=== PATIENT | male | born 1945 | race Caucasian/White ===

== ENCOUNTER 2016-04-09 10:02 | Observation (INO) | payer OTHER, MEDICARE ==
--- NOTE | 2016-04-09 10:27 | ED ---
Chest Pain HPI - General Chief Complaint: Syncope Stated Complaint: Chest pain Time Seen by Provider: 04/09/16 10:14 Source: patient, RN notes reviewed Mode of arrival: ambulatory Limitations: no limitations - History of Present Illness Initial Comments: This is a 70-year-old male with a history of COPD who states he had an episode this morning about 8:30 AM of some lightheadedness nausea vomiting he passed out. He also had chest tightness it was 6/10 in severity. Tightness lasted about one half hour. Currently he feels fine. EMS was summoned to his house but they decided to come in by private vehicle. Is unclear whether the nausea vomiting came before after the chest tightness and wearing a process the syncopal episode occurred. He does state that he has carotid artery disease he has passed out previously. No recent trauma fevers chills sweats MD Complaint: chest pain, other - Related Data Home Medications Medication Instructions Recorded Confirmed Albuterol Nebulized [Ventolin 2.5 mg INHALATION RT-BID PRN 04/09/16 04/09/16 Nebulized] Albuterol Sulfate [Proventil Hfa] 2 puff INHALATION RT-QID PRN 04/09/16 04/09/16 Aspirin 325 mg PO DAILY 04/09/16 04/09/16 Budesonide/Formoterol Fumarate 2 puff INHALATION RT-BID 04/09/16 04/09/16 [Symbicort 80-4.5 Mcg Inhaler] Nitroglycerin Sl Tabs [Nitrostat] 0.4 mg SUBLINGUAL Q5M PRN 04/09/16 04/09/16 Omeprazole [PriLOSEC] 20 mg PO AC-BID 04/09/16 04/09/16 diphenhydrAMINE HCL [Benadryl] 25 mg PO DAILY PRN 04/09/16 04/09/16 Allergies Allergy/AdvReac Type Severity Reaction Status Date / Time No Known Allergies Allergy Verified 04/09/16 11:08 Review of Systems ROS Statement: Those systems with pertinent positive or pertinent negative responses have been documented in the HPI. ROS Other: All systems not noted in ROS Statement are negative. EKG Findings - EKG Results: EKG: interpreted by MARINO, sinus rhythm (Sinus rhythm with a rate 81 a WI interval 150 QRS duration 88 daily since QTC of 388/[address]-T wave configuration.) Past Medical History Past Medical History: COPD, GERD/Reflux Additional Past Medical History / Comment(s): vocal cord History of Any Multi-Drug Resistant Organisms: None Reported Past Surgical History: Ablation, Cholecystectomy, Orthopedic Surgery Additional Past Surgical History / Comment(s): vasectomy Past Psychological History: No Psychological Hx Reported Smoking Status: Former smoker Past Alcohol Use History: None Reported Past Drug Use History: None Reported General Exam - General Exam Comments Initial Comments: This is a well-developed well-nourished awake alert oriented 3 male Limitations: no limitations General appearance: alert, in no apparent distress Head exam: Present: atraumatic, normocephalic, normal inspection Eye exam: Present: normal appearance, PERRL, EOMI. Absent: scleral icterus, conjunctival injection, periorbital swelling ENT exam: Present: normal exam, mucous membranes moist Neck exam: Present: normal inspection. Absent: tenderness, meningismus, lymphadenopathy Respiratory exam: Present: normal lung sounds bilaterally. Absent: respiratory distress, wheezes, rales, rhonchi, stridor Cardiovascular Exam: Present: regular rate, normal rhythm, normal heart sounds. Absent: systolic murmur, diastolic murmur, rubs, gallop, clicks GI/Abdominal exam: Present: soft, normal bowel sounds. Absent: distended, tenderness, guarding, rebound, rigid Extremities exam: Present: normal inspection, full ROM, normal capillary refill. Absent: tenderness, pedal edema, joint swelling, calf tenderness Back exam: Present: normal inspection Neurological exam: Present: alert, oriented X3, CN II-XII intact Psychiatric exam: Present: normal affect, normal mood Skin exam: Present: warm, dry, intact, normal color. Absent: rash Course Vital Signs 04/09/16 04/09/16 04/09/16 10:05 11:13 12:02 Temperature 97.1 F L Pulse Rate 90 87 84 Respiratory 20 18 18 Rate Blood Pressure 119/83 159/74 157/65 O2 Sat by Pulse 97 97 97 Oximetry 04/09/16 04/09/16 12:07 13:19 Temperature 99.3 F 99.0 F Pulse Rate 85 84 Respiratory 16 18 Rate Blood Pressure 140/73 137/63 O2 Sat by Pulse 98 98 Oximetry - Reevaluation(s) Reevaluation #1: 04/09/16 13:48 I did reevaluate patient several occasions he had no further episodes. Chest Pain MDM - MDM Review the imaging showed no definite acute findings including the CAT scan. I did discuss the case with the patient family and with the admitting physicians patient be admitted with cardiology consultation for chest pain and syncope Critical Care Time Critical Care Time: Yes Critical Care Time: 31 minutes which included the initial presentation with history physical lab and x-rays reevaluation the patient on several occasions. Discussion with the patient and his family. Discussed with the admitting physician order writing and documentation of the above. Disposition Clinical Impression: Syncope and collapse, Chest pain Disposition: ADMITTED IP TO THIS [facility] Condition: Stable
[2016-04-09 10:53] LABS: Basophils % (A) 1 %; CH 30.4; CHCM 34.4; Eosinophils # (A) 0.6 k/uL (0-0.7); Eosinophils % (A) 8 %; HCT 42.3 % (39.0-53.0); HDW 3.11; HGB 14.3 gm/dL (13.0-17.5); Luc # (Auto) 0.31; Luc % (Auto) 4; Lymphocytes # (A) 0.8 k/uL (1.0-4.8); Lymphocytes % (A) 10 %; MCH 30.1 pg (25.0-35.0); MCHC 33.9 g/dL (31.0-37.0); MCV 88.9 fL (80.0-100.0); Mean Platelet Volume 7.3; Monocytes # (A) 0.6 k/uL (0-1.0); Monocytes % (A) 9 %; Neutrophils % (A) 69 %; RBC 4.75 m/uL (4.30-5.90); WBC 7.2 k/uL (3.8-10.6); WBC (Perox) 7.02
[2016-04-09 11:03] LABS: ALT 37 U/L (21-72); AST 22 U/L (17-59); Alkaline Phosphatase 73 U/L (38-126); Amylase <30 U/L (30-110); Anion Gap 8 mmol/L; Blood Urea Nitrogen 18 mg/dL (9-20); Calcium 8.6 mg/dL (8.4-10.2); Carbon Dioxide 27 mmol/L (22-30); Chloride 102 mmol/L (98-107); Glucose 101 mg/dL (74-99); Magnesium 1.7 mg/dL (1.6-2.3); Non-African American GFR(MDRD) >60 (>60 ml/min/1.73 sqM); Potassium 4.4 mmol/L (3.5-5.1); Sodium 137 mmol/L (137-145); Total Bilirubin 0.6 mg/dL (0.2-1.3); Total Protein 6.4 g/dL (6.3-8.2)
[2016-04-09 11:08] LABS: INR 1.1 (<1.1); Partial Thromboplastin Time 26.2 sec (22.0-30.0); Prothrombin Time 10.7 sec (9.0-12.0)
--- NOTE | 2016-04-09 11:12 | XR ---
EXAMINATION TYPE: XR chest 2V DATE OF EXAM: 04/09/2016 10:43 AM COMPARISON: Prior chest x-ray 22 November 2013 HISTORY: Chest pain and cough TECHNIQUE: Frontal and lateral views of the chest are obtained. FINDINGS: There is no focal air space opacity, pleural effusion, or pneumothorax seen. The cardiac silhouette size is within normal limits. There are overlying cardiac leads. Patient is rotated. Stra nd-like densities within the lungs likely reflect scarring. Prominent lung volumes are suggestive of COPD. The osseous structures are intact. IMPRESSION: No acute cardiopulmonary process.
[2016-04-09 11:26] LABS: Creatine Kinase MB 1.3 ng/mL (0.0-2.4); Troponin I 0.029 ng/mL (0.000-0.034)
[2016-04-09] MEDS ORDERED: RX INFO: IV CONTRAST WAS GIVEN 1 EACH MISC MISCELLANE PRN (12:13)
--- NOTE | 2016-04-09 13:07 | CT ---
EXAMINATION TYPE: CT angio chest DATE OF EXAM: 04/09/2016 12:48 PM COMPARISON: Correlation radiograph same day HISTORY: 70-year-old male with shortness of breath and chest pain TECHNIQUE: Contiguous axial scanning of the chest performed with IV Contrast, patient injected with 1 00 ml mL of Omnipaque 350. Coronal/sagittal MIP reconstructions performed. CT DLP: 517 mGycm Automated exposure control for dose reduction was used. FINDINGS: Heart is normal size with trace anterior pericardial effusion. Extensive coronary vessel calcificatio ns are present and unremarkable for coronary artery disease. The aorta is normal caliber with mild atherosclerotic arch calcifications and conventional arch vesse l branching anatomy. Precarinal lymph node is borderline enlarged at 1 cm as is a subcarinal lymph node measuring 1.3 cm. Additional scattered nonenlarged mediastinal lymph nodes are present. Mild bilateral gynecomastia. Satisfactory opacification of the pulmonary arterial system without evidence for pulmonary embolus. Moderate diffuse bronchial wall thickening and mild centrilobular emphysema. Tiny calcified granuloma left upper lobe axial image 44. Some subtle groundglass nodular densities at the lung bases and line ar bands of scarring or atelectasis in the lower lungs. Some subtle tree-in-bud opacities are also berman ggested, for example, right middle lobe axial image 104. No kira consolidation or significant pleura l effusion. Visualized upper abdomen shows numerous hypodense lesions in the liver measuring up to 3.0 cm suggest ned of cysts. Bones: Mild superior endplate compression deformity of T5 resulting in mild anterior wedging, suspect ed chronic given the lack of any paravertebral soft tissue abnormality. There is also some apparent healed fracture deformity of the upper sternal body. IMPRESSION: 1. NO EVIDENCE FOR PULMONARY EMBOLUS. 2. COPD WITH MILD EMPHYSEMA. THERE IS A PROMINENT COMPONENT OF CHRONIC BRONCHITIS OR SUPERIMPOSED ACU TE BRONCHITIS. 3. CAD. 4. SUBTLE GROUNDGLASS NODULES AND TREE-IN-BUD OPACITIES IN THE LOWER LUNGS COULD REFLECT BRONCHIOLITI S, SEQUELA OF ASPIRATION, OR INFECTION WITH ATYPICAL ORGANISMS. 5. SUSPECT CHRONIC MILD ANTERIOR WEDGING OF T5. THERE IS ALSO A CHRONIC HEALED FRACTURE DEFORMITY OF THE STERNAL BODY.
[2016-04-09] MEDS ORDERED: HEPARIN SODIUM,PORCINE 5,000 UNIT/ML 1 ML VIAL IV ONE (13:49)
[2016-04-09] MEDS ORDERED: ALBUTEROL NEBULIZED 2.5 MG/3 ML INHALATION PRN (13:51)
[2016-04-09] MEDS: HEPARIN SODIUM,PORCINE/D5W PMX 25,000 UNIT in DEXTROSE/WATER 1 500ML.BAG IV SCH (14:11)
[2016-04-09] MEDS: SODIUM CHLORIDE 0.9% 1,000 ML IV SCH (14:11)
[2016-04-09 16:56] LABS: Creatine Kinase MB 1.4 ng/mL (0.0-2.4)
[2016-04-09 17:07] LABS: Troponin I 0.036 ng/mL (0.000-0.034)
[2016-04-09] MEDS ORDERED: IPRATROPIUM-ALBUTEROL 3 ML NEB INHALATION PRN (17:33)
[2016-04-09] MEDS: NITROGLYCERIN OINT 1 INCH/GM PACKET TOPICAL SCH ×2 (19:26→22:55)
[2016-04-09] MEDS: SYMBICORT 80-4.5 MCG INHALER INHALATION SCH (20:42)
[2016-04-09] MEDS: PANTOPRAZOLE 40 MG TABLET PO SCH (21:46)
[2016-04-09] MEDS ORDERED: HEPARIN SODIUM,PORCINE 5,000 UNIT/ML 1 ML VIAL IV PRN (22:50)
[2016-04-09 22:54] LABS: Creatine Kinase MB 1.9 ng/mL (0.0-2.4); Troponin I 0.029 ng/mL (0.000-0.034)
[2016-04-10] MEDS: NITROGLYCERIN OINT 1 INCH/GM PACKET TOPICAL SCH (05:46)
[2016-04-10 06:37] LABS: Cholesterol 157 mg/dL (<200); HDL Cholesterol 38 mg/dL (40-60); Triglycerides 105 mg/dL (<150)
[2016-04-10] MEDS: PANTOPRAZOLE 40 MG TABLET PO SCH ×2 (06:37→18:35)
[2016-04-10] MEDS ORDERED: ACETAMINOPHEN TAB 325 MG TAB PO PRN (07:43)
--- NOTE | 2016-04-10 07:55 | HP ---
DATE OF ADMISSION: Chief complaint is syncope. Mr. Ramos is a 70-year-old male with a known history of COPD, GERD, and history of left carotid endarterectomy with 90% blockage and 50% blockage for right carotid artery. Came to the hospital after He had a single episode at home. Apparently was standing and talking to his , suddenly he felt dizzy and fell on the trashcan. Patient felt nauseated and lightheadedness before the episode. Patient says that he lost consciousness for a few minutes and also felt some chest tightness and he came to the hospital. Chest tightness and tiredness lasted about half an hour. Patient came to the hospital in a private vehicle. Otherwise, patient denied any recent illnesses. No fever. No chills. Patient does have dry cough and no increased sputum production. Patient used to smoke but quit about 12 years ago. Patient says that he had neck surgery and sternal fracture status post fall at work. Otherwise, patient currently denied any chest pain. Patient apparently has not been feeling well recently and patient is scheduled for cardiac catheterization next month. No recent travel. REVIEW OF SYSTEMS: CONSTITUTIONAL: No fever. No chills. No weakness, malaise. RESPIRATORY: No cough or sputum production. CARDIOVASCULAR: No chest pain or short of breath. No leg swelling. ABDOMEN: No nausea or vomiting. No abdominal pain. No diarrhea. No constipation. GENITOURINARY: No dysuria. No ( ). ENDOCRINE: Negative. PSYCHIATRIC: Negative. NEUROLOGIC: No headache or lightheadedness, dizziness now. No numbness or tingling. No weakness. Otherwise, patient denied any orthopnea, PND. No bladder or bowel incontinence and he had a single episode. PAST MEDICAL HISTORY: COPD and GERD, history of fall and sternal fracture as well as neck surgery and vocal cord damage at the time. PAST SURGICAL HISTORY: Ablation, cholecystectomy, orthopedic surgery, vasectomy. SOCIAL HISTORY: Patient is a former smoker. Used to smoke 1 pack per day, quit 12 years ago. Denied any alcohol, drugs or IVDU. FAMILY HISTORY: Denied any history of hypertension or diabetes mellitus in the family. ALLERGIES: No known drug allergies. Home medications include: 1. Ventolin. 2. Albuterol sulfate. 3. Aspirin. 4. Symbicort. 5. Nitroglycerin. 6. Omeprazole. 7. Benadryl. PHYSICAL EXAMINATION: A 70-year-old male lying in bed comfortably, awake, alert, oriented x3, appears to be in no apparent distress. VITALS: Blood pressure 140/69, pulse is 74, respiratory rate 16, temperature afebrile, pulse ox 94% on room air. HEENT: Atraumatic, normocephalic. Neck is supple. No JVD. CVS EXAM: S1, S2 heard. No murmurs, no gallop. LUNGS: Bilateral air entry is present. Expiratory wheezing positive. Nonlabored breathing. ABDOMEN: Soft, nontender. Bowel sounds are present. 3D DESIGNER: Awake, alert, oriented x3. No focal neurologic deficit. EXTREMITIES: No edema. Pulses palpable bilaterally. No clubbing or cyanosis. PSYCHIATRIC: Cooperative. LABORATORY DATA: WBC 7.2, hemoglobin 14.3, platelets 247, INR 1.1. D-dimer is 0.88. Sodium 137, potassium 4.4, chloride 102, bicarb is 27. BUN 18, creatinine 1.01 and troponin 0.029 and 0.036, amylase less than 30, lipase is around 35. Chest x-ray no abnormality and CT of the chest showed no evidence of pulmonary embolism, COPD with mild emphysema. There is a prominent component of chronic bronchitis, probably superimposed acute bronchitis, coronary artery disease, subtle ground glass nodules and tree-in-bud opacities in the lower lungs, could reflect bronchiolitis, sequela of aspiration, or infection with atypical organisms. EKG normal sinus rhythm. IMPRESSION: 1. Syncope and fall, likely ischemic cardiogenic. 2. Elevated troponin, possible non-ST elevated myocardial infarction. 3. Elevated d-dimer, CTA of chest negative for pulmonary embolism. 4. Hx of PVD. s/p left Carotid endarterectomy 4. Chronic obstructive pulmonary disease with mild exacerbation. 5. Ground-glass nodular densities the lower lungs. 6. Gastroesophageal reflux disease. 7. History of ablation. DISCUSSION AND PLAN: Patient will be continued on heparin IV, continue with the breathing treatments and continue with the GI prophylaxis. Continue with the tele monitoring and serial EKGs and patient currently on heparin IV. Cardiology has been consulted for further evaluation. Patient does not have any fever or cough or sputum production and no signs of infection. No need for antibiotics at this time. Consulting Pulmonary for ground-glass densities in the lower lungs. Will continue to follow closely. Further recommendations based on the clinical course. MTDD
[2016-04-10] MEDS ORDERED: ATORVASTATIN 80 MG TAB PO STA (08:27)
[2016-04-10] MEDS ORDERED: ALPRAZolam 0.25 MG TAB PO PRN (08:27)
[2016-04-10] MEDS ORDERED: ALPRAZolam 0.5 MG TAB PO PRN (08:27)
[2016-04-10] MEDS ORDERED: SODIUM CHLORIDE 0.9% 1,000 ML in EMPTY BAG 1 BAG IV ONE (08:27)
[2016-04-10] MEDS ORDERED: NITROGLYCERIN SL TABS 0.4 MG TAB SUBLINGUAL PRN (08:27)
[2016-04-10] MEDS ORDERED: ASPIRIN 325 MG TAB PO STA (08:27)
[2016-04-10] MEDS: METOPROLOL TARTRATE 25 MG TAB PO SCH ×2 (09:01→20:38)
[2016-04-10] MEDS: ASPIRIN 325 MG TAB PO SCH (09:02)
[2016-04-10] MEDS: ATORVASTATIN 80 MG TAB PO SCH (09:02)
[2016-04-10] MEDS: SYMBICORT 80-4.5 MCG INHALER INHALATION SCH ×2 (09:18→21:25)
[2016-04-10] MEDS ORDERED: diphenhydrAMINE 50 MG/ML 1 ML VIAL ONE (09:19)
[2016-04-10] MEDS ORDERED: fentaNYL (PF) 50 MCG/ML 2 ML AMP ONE (09:19)
[2016-04-10] MEDS ORDERED: LIDOCAINE 2% INJ 20 MG/ML (20 ML MDV) ONE (09:19)
[2016-04-10] MEDS ORDERED: VERAPAMIL 2.5 MG/ML 2 ML AMP ONE (09:20)
[2016-04-10] MEDS ORDERED: SODIUM CHLORIDE 0.9% (PF) 10 ML VIAL ONE (09:20)
[2016-04-10] MEDS ORDERED: fentaNYL (PF) 50 MCG/ML 2 ML AMP IV ONE (09:56)
--- NOTE | 2016-04-10 09:56 | CONS ---
DATE OF CONSULTATION: Mr. Ramos is a 70-year-old male who is followed at the [facility] in [place], who presented with symptoms of syncope. According to him, he was standing when he had a syncopal episode, short lasting, subsequently had nausea and vomiting. He denies any symptoms of chest pain prior to that. He denies any palpitation. He has chronic dyspnea on exertion. He is limited in his physical activity and he has dyspnea on exertion, but has an intermittent claudication, but no chest discomfort. He has no history of PND, orthopnea, or peripheral edema. No prior history of myocardial infarction, congestive heart failure. He apparently had a stress test done at the [facility] that was abnormal and he was scheduled to undergo cardiac catheterization soon. He has a known history of peripheral vascular disease, status post lower extremities percutaneous revascularization as well as left carotid endarterectomy. His coronary risk factors are positive for prior history of smoking. He is nondiabetic. His lipid profile is not available to me. He has no history of hypertension. His medications include Prilosec, Symbicort, aspirin, Proventil and Ventolin. REVIEW OF SYSTEMS: RESPIRATORY SYSTEM: He has dyspnea on exertion. He has cough, history of obstructive lung disease. GI SYSTEM: No recent GI bleeding. No peptic ulcer disease. SYSTEM: No dysuria or hematuria. NERVOUS SYSTEM: No history of stroke or seizure. PHYSICAL EXAMINATION: A 70-year-old male, alert, oriented, in no apparent distress. Blood pressure 135/60 with a heart in the 90s. HEAD: Normocephalic. EYES: Sclerae nonicteric. NECK: No jugular venous distention. LUNGS: No wheezes. HEART: Regular rate and rhythm. S1, S2, no S3, with systolic murmur. No diastolic murmur. No rub. ABDOMEN: Soft, nontender, positive bowel sounds. No organomegaly. EXTREMITIES: Decreased distal pulses. No edema. Lab data revealed troponin at 0.029, 0.036, and 0.029, cholesterol 157, LDL of 98, BUN and creatinine of 18 and 1.01. D-dimer of 0.88. Hemoglobin of 14.3. CT angiogram of the chest revealed no evidence of pulmonary embolism with evidence of COPD and calcifications of the coronary arteries. EKG revealed a sinus mechanism, normal axis and intervals with nonspecific ST-T wave changes. Chest x-ray revealed no acute infiltrate. IMPRESSION: 1. Syncopal episode with minimal elevation of troponin in a patient with abnormal myocardial perfusion imaging, cannot exclude an ischemic event. 2. History of peripheral vascular disease. 3. History of chronic obstructive pulmonary disease. RECOMMENDATION: I will add to his regimen beta mariusz and a statin. I will obtain echocardiogram with Doppler. I recommend proceeding with coronary angiography to assess his status and guide his treatment. The rationale behind the procedure as well as risks and complications were discussed with the patient who is in full understanding and agreement. Depending on his progress, further recommendation will be made. Thank you for this consult. Will follow with you.
[2016-04-10] MEDS ORDERED: diphenhydrAMINE 50 MG/ML 1 ML VIAL IVP ONE (09:57)
[2016-04-10] MEDS ORDERED: IV FLUID CONTINUATION 350 ML IV ONE (09:57)
[2016-04-10] MEDS ORDERED: LIDOCAINE 2% INJ 20 MG/ML SQ ONE (09:59)
[2016-04-10] MEDS ORDERED: HEPARIN SODIUM 1,000 UNIT/ML VIAL ONE (09:59)
[2016-04-10] MEDS ORDERED: VERAPAMIL SYRINGE (5 MG/10 ML) INTRAARTER ONE (10:01)
[2016-04-10] MEDS ORDERED: HEPARIN SODIUM 1,000 UNIT/ML VIAL IV ONE (10:11)
[2016-04-10] MEDS ORDERED: IOHEXOL 350 MG/ML 100 ML BOTTLE INJ ONE (10:15)
[2016-04-10] MEDS ORDERED: RX INFO: IV CONTRAST WAS GIVEN 1 EACH MISC MISCELLANE PRN (10:27)
[2016-04-10] MEDS ORDERED: SODIUM CHLORIDE 0.9% 1,000 ML IV SCH (10:30)
[2016-04-10] MEDS: SODIUM CHLORIDE 0.9% 1,000 ML IV SCH (11:58)
--- NOTE | 2016-04-10 12:05 | US ---
EXAMINATION TYPE: US carotid duplex BILAT DATE OF EXAM: 04/10/2016 11:37 AM COMPARISON: Previous carotid Doppler dated September 2013 CLINICAL HISTORY: post cea. history of left endarterectomy last year EXAM MEASUREMENTS: RIGHT: Peak Systolic Velocity (PSV) cm/sec ----- Right CCA: 87.3 ----- Right ICA: 318.1 ----- Right ECA: 222.7 ICA/CCA ratio: 3.6 RIGHT: End Diastole cm/sec ----- Right CCA: 18.1 ----- Right ICA: 30.7 ----- Right ECA: 15.8 LEFT: Peak Systolic Velocity (PSV) cm/sec ----- Left CCA: 137.7 ----- Left ICA: 122.6 ----- Left ECA: 201.9 ICA/CCA ratio: 0.9 LEFT: End Diastole cm/sec ----- Left CCA: 19.5 ----- Left ICA: 33.8 ----- Left ECA: 0.0 VERTEBRALS (direction of flow): Right Vertebral: Antegrade Left Vertebral: Antegrade there is an elevated velocity noted in the left vertebral artery. TECHNOLOGIST IMPRESSION: Elevated velocities right ICA and ECA indicating stenosis. Grayscale, color Doppler, spectral Doppler imaging performed at the carotid arteries. Extensive ather omatous changes are present within the common carotid, proximal internal carotid artery on the right. Waveform analysis is compatible with significant stenosis of the proximal internal carotid on the [facility] by Doppler criteria, and indirect measurement of carotid stenosis. Post endarterectomy changes ar e present on the left. IMPRESSION: Hemodynamic significant stenosis of the proximal internal carotid artery and right corre sponding to what may be 70% or greater diameter reduction by Doppler criteria. Consider carotid CTA for better evaluation. Elevated left vertebral artery velocity. Criteria for Assigning % of Stenosis / Diameter reduction (Estimation based on the indirect measurements of the internal carotid artery velocities (ICA PSV). 1. Normal (no stenosis)=ICA PSV < 125 cm/s: ratio < 2.0: ICA EDV<40 cm/s. 2. Less than 50% stenosis=ICA PSV < 125 cm/s: ratio < 2.0: ICA EDV<40 cm/s. 3. 50 to 69% stenosis=ICA PSV of 125 to 230 cm/s: ration 2.0 ? 4.0: ICA EDV 40-100 cm/s. 4. Greater than 70% stenosis to near occlusion= ICA PSV > 230 cm/s: ratio > 4.0: ICA EDV > 100 cm/s. 5. Near occlusion= ICA PSV velocities may be low or undetectable: variable ratio and ICA EDV. 6. Total occlusion=unable to detect flow.
[2016-04-10 12:12] LABS: Hemoglobin A1C 5.9 % (4.2-6.1)
[2016-04-10 12:47] LABS: Hepatitis B Surface Ag Index 0.08
[2016-04-10 12:53] LABS: Hepatitis B Core IgM Index 0.04
[2016-04-10 13:04] LABS: Hepatitis C Virus IgG Index 0.04
--- NOTE | 2016-04-10 13:09 | ECHOF ---
Referral Reason:cad MEASUREMENTS -------- HEIGHT: 170.2 cm WEIGHT: 78.5 kg BP: 135/67 IVSd: 1.1 cm (0.6 - 1.1) LVIDd: 5.0 cm (3.9 - 5.3) LVPWd: 1.2 cm (0.6 - 1.1) IVSs: 1.4 cm LVIDs: 4.9 cm LVPWs: 1.2 cm LAESV Index (A-L): 22.76 ml/m Ao Diam: 3.3 cm (2.0 - 3.7) AV Cusp: 1.8 cm (1.5 - 2.6) LA Diam: 3.9 cm (2.7 - 3.8) MV EXCURSION: 17.354 mm (> 18.000) MV EF SLOPE: 81 mm/s (70 - 150) EPSS: 1.4 cm MV E Tate: 0.51 m/s MV DecT: 263 ms MV A Tate: 0.89 m/s MV E/A Ratio: 0.57 RAP: 5.00 mmHg RVSP: 20.08 mmHg FINDINGS -------- Undetermined rhythm. This was a techncally difficult study with suboptimal views, , Definity utilized for enhancement of images. Left ventricular wall thickness is normal. There is severe global hypokinesis of LV . Overall left ventricular systolic function is severely impaired with, an EF between 20 - 25 %. The diastolic filling pattern is normal for the age of the patient 11.00. Inferiorlateral Hypokinesis Posterior Hypokinesis. The right ventricle is normal in size. The right atrial size is normal. 1.5MG OF DEFINITY UTLIZED: 2 OR MORE WALL SEGMENTS NOT VISUALIZED. There is mild aortic valve sclerosis. There is no evidence of aortic regurgitation. Mild mitral annular calcification present. Mild mitral regurgitation is present. Mild tricuspid regurgitation present. There is no evidence of pulmonary hypertension. The right ventricular systolic pressure, as measured by Doppler, is 20.08mmHg. Trace/mild (physiologic) pulmonic regurgitation. There is no pericardial effusion. CONCLUSIONS -------- 1. This was a techncally difficult study with suboptimal views, , Definity utilized for enhancement of images. 2. Mild mitral annular calcification present. 3. Mild mitral regurgitation is present. 4. Mild tricuspid regurgitation present. 5. There is no evidence of pulmonary hypertension. 6. The right ventricular systolic pressure, as measured by Doppler, is 20.08mmHg. 7. Trace/mild (physiologic) pulmonic regurgitation. 8. There is no pericardial effusion. 9. Left ventricular wall thickness is normal. 10. There is severe global hypokinesis of LV . 11. Overall left ventricular systolic function is severely impaired with, an EF between 20 - 25 %. 12. The diastolic filling pattern is normal for the age of the patient 11.00 13. Inferiorlateral Hypokinesis 14. Posterior Hypokinesis. 15. 1.5MG OF DEFINITY UTLIZED: 2 OR MORE WALL SEGMENTS NOT VISUALIZED. 16. There is mild aortic valve sclerosis. PRICK STITCHER: Josselin Godfrey RDCS
[2016-04-10 13:20] LABS: Hepatitis C Virus IgG Ab Negative (Negative)
[2016-04-10 14:35] LABS: Appearance,Urine Clear (Clear); Bilirubin,Urine Negative (Negative); Glucose,Urine (UA) Negative (Negative); Ketones,Urine Negative (Negative); Leukocyte Esterase,Urine Negative (Negative); Nitrite,Urine Negative (Negative); Protein,Urine Trace (Negative); UA Billing (MACRO vs. MICRO) CHEM; Urobilinogen,Urine <2.0 mg/dL (<2.0)
--- NOTE | 2016-04-10 15:02 | P.GSCN ---
History of Present Illness Consult date: 04/10/16 Reason for Consult: CAD, possible coronary artery bypass grafting. Requesting physician: Best Martinez History of present illness: This 70 year old male was being followed at the [place]. Apparently, he recently had an abnormal stress test and was supposed to have a heart catheterization soon. Yesterday morning, he felt nauseous, and lightheaded with chest tightness rated at 6/10. He sat down and the next thing he remembered was waking up on the floor. He continued to have nausea. Due to the syncopal episode, nausea, and short-lasting chest tightness, his dialed 911. He does admit to dyspnea with exertion and intermittent claudication but states that these symptoms are chronic. Review of Systems 14 point review of systems done, negative except as noted. - Cardiovascular Reports as per HPI, Reports claudication, Reports dyspnea on exertion, Reports lightheadedness, Reports syncope - Respiratory Reports cough - Gastrointestinal Reports heartburn - Musculoskeletal left: foot pain Past Medical History Past Medical History: COPD, GERD/Reflux, Osteoarthritis (OA) Additional Past Medical History / Comment(s): "vocal cord INFLAMATIO WAS RECENTLY ON ABX", ASBESTOS EXPOSURE WHILD IN THE SERVICE, "HEART SKIPS A BEAT", DRY SKIN BRUISED EASILY History of Any Multi-Drug Resistant Organisms: None Reported Past Surgical History: Orthopedic Surgery, Tonsillectomy Additional Past Surgical History / Comment(s): vasectomy, LT KNEE SX, CHILD HAD SX ON TESTICLE(UNSURE WHAT WAS DONE), BROKE NOSE(SX DONE), FELL 25 FT FROM A TELEPHONE POLE HAD SX ON NECK STATED ", LT CAROTID ENDARTERECTOMY, "STENTS TO BOTH LEGS"HAS A WIRE IN PLACE", RT WRIST BROKEN SX SET, PASSED MEDICAL HX STATED GALLBLADDER AND ABLATION-PT DENIED BOTH. Past Anesthesia/Blood Transfusion Reactions: Previous Problems w/ Anesthesia Additional Past Anesthesia/Blood Transfusion Reaction / Comm: WOKE UP DURING WRIST SX, MILD CLAUSTERPHOBIA Past Psychological History: No Psychological Hx Reported Additional Psychological History / Comment(s): PT LIVES AT HOME WITH HIS AND 1 ADULT SON. 1 INDOOR DOG. PT SERVED IN THE [employer] AND THE [employer]. BEFORE RETIRING PT HAD BEEN WORKING FOR [employer]. PT IS INDEPENDANT.NO OUTSIDE SERVICES. Smoking Status: Former smoker Past Alcohol Use History: None Reported Additional Past Alcohol Use History / Comment(s): STARTED SMOKING WHEN I WAS 8, QUIT 2004, WAS SMOKING 2-3 PPD Past Drug Use History: None Reported - Past Family History Father Family Medical History: Cancer Additional Family Medical History / Comment(s): STOMACH CANCER Mother Additional Family Medical History / Comment(s): POLIO Brother(s) Family Medical History: Myocardial Infarction ([place]) Medications and Allergies Home Medications Medication Instructions Recorded Confirmed Type Albuterol Nebulized [Ventolin 2.5 mg INHALATION RT-BID PRN 04/09/16 04/09/16 History Nebulized] Albuterol Sulfate [Proventil Hfa] 2 puff INHALATION RT-QID PRN 04/09/16 History Aspirin 325 mg PO DAILY 04/09/16 04/09/16 History Budesonide/Formoterol Fumarate 2 puff INHALATION RT-BID 04/09/16 04/09/16 History [Symbicort 80-4.5 Mcg Inhaler] Nitroglycerin Sl Tabs [Nitrostat] 0.4 mg SUBLINGUAL Q5M PRN 04/09/16 04/09/16 History Omeprazole [PriLOSEC] 20 mg PO AC-BID 04/09/16 04/09/16 History diphenhydrAMINE HCL [Benadryl] 25 mg PO DAILY PRN 04/09/16 04/09/16 History Allergies Allergy/AdvReac Type Severity Reaction Status Date / Time No Known Allergies Allergy Verified 04/09/16 11:08 Surgical - Exam Vital Signs Temp Pulse Resp BP Pulse Ox 97.1 F L 90 20 119/83 97 04/09/16 10:05 04/09/16 10:05 04/09/16 10:05 04/09/16 10:05 04/09/16 10:05 - General well developed, well nourished, no distress, no pain - Eyes PERRL, normal ocular movement - Neck No thyromegaly no masses, no bruits, trachea midline, no lymphadectomy - Respiratory Lungs sounds diminished bilaterally. Respirations even, nonlabored. Occasional dry cough. - Cardiovascular S1, S2 present. Regular rate and rhythm, normal sinus rhythm on telemetry. No edema present. - Abdomen Abdomen: soft, non tender, bowel sounds - Genitourinary Deferred - Rectum Deferred - Integumentary Bilateral lower extremities with reddened, jeffery, thick skin. - Neurologic normal coordination, normal sensation - Musculoskeletal normal gait - Psychiatric oriented to time, oriented to person, oriented to place, speech is normal, memory intact Results - Labs 04/09/16 10:36 04/09/16 10:36 Abnormal Lab Results - Last 24 Hours (Table) 04/09/16 04/09/16 04/10/16 Range/Units 16:02 21:51 05:31 APTT 32.5 H (22.0-30.0) sec Troponin I 0.036 H* (0.000-0.034) ng/mL HDL Cholesterol 38 L (40-60) mg/dL 04/10/16 Range/Units 05:32 APTT 63.5 H (22.0-30.0) sec Troponin I (0.000-0.034) ng/mL HDL Cholesterol (40-60) mg/dL Diabetes panel 04/10/16 04/10/16 Range/Units 05:31 05:32 Hemoglobin A1c 5.9 (4.2-6.1) % Triglycerides 105 (<150) mg/dL HDL Cholesterol 38 L (40-60) mg/dL - Imaging Chest x-ray: report reviewed, image reviewed CT scan - chest: report reviewed, image reviewed EKG: image reviewed (carotid dopplers reviewed) Additional studies: vein mapping, ADEOLA, TTE results pending Assessment and Plan (1) Chest pain Status: Acute (2) Syncope and collapse Status: Acute (3) Peripheral artery disease Status: Acute (4) COPD (chronic obstructive pulmonary disease) Status: Acute (5) Coronary artery disease Status: Acute Plan: 1. Cont ASA, BB, ELLEN, Statin 2. Pre-op testing ordered, results pending 3. Pre-op teaching started, cont to reinforce 4. Dr. Lai consulted for pulmonology work-up 5. Plan for possible CABG in the near future dependent on pending tests and patient status 6. Emotional support for patient and family Thank you, Dr. Martinez, for this consult. We look forward to working with you in the care of your patient. Time with Patient: Greater than 30
--- NOTE | 2016-04-10 16:12 | P.CNPUL ---
History of Present Illness Consult date: 04/10/16 Reason for consult: other ( preop pulmonary evaluation) History of present illness: 70-year-old male patient who presented to the hospital because of syncopal episode. The patient had a brief syncope associated with some chest pain/chest discomfort. The patient was suspected to have underlying coronary artery disease based on his risk factors. He was taken to [facility] and he was found to have significant triple-vessel disease. A cardiothoracic consultation was requested to evaluate this patient for cardiac bypass surgery. Mother the patient also has history of carotid artery disease and he has undergone a endarterectomy on the left and he has a 70% stenosis of the intercurrent artery on the right. In terms of his breathing, he is able to walk long distances if he goes slow. He is able to climb a flight of stairs without any major difficulties. He uses Symbicort as maintenance in regards to COPD and Proventil /Ventolin rescue inhaler on a when necessary basis. No recent authorization for COPD exacerbation. No recent pneumonias. The patient relates to a previous injury to his neck area as the patient had fallen off the pole and sustained a injury to his face and chin and ultimately underwent a cervical neck surgery for a fall related injury to the neck/fracture. He was told to have some vocal cord dysfunction probably a unilateral vocal cord paralysis however I'm not certain of this. He is currently free of any chest pain. No 69 DVTs or pulmonary embolism. No alcoholism. A baseline poor function test or an FEV1 has not been measured.. His chest x-ray showed no acute cardio pulmonary abnormalities. The CAT scan of the chest shows evidence of mild COPD with evidence of chronic bronchitis, subtle groundglass nodules in the lower lobes bilaterally and a anterior wedging of the T5 spine and old healed fracture deformity of the sternal body. There was no evidence of any pulmonary embolism. Review of Systems further review of system was done and the positive findings are almost above history of present illness Past Medical History Past Medical History: COPD, GERD/Reflux, Osteoarthritis (OA) Additional Past Medical History / Comment(s): COPD, osteoarthritis, multivessel coronary artery disease as mentioned above, history of sternal fracture secondary to fall, history of neck injury secondary to fall and there is a vague history of a vocal cords injury/paralysis at a time of the fall that occurred approximately 14 years ago. History of Any Multi-Drug Resistant Organisms: None Reported Past Surgical History: Orthopedic Surgery, Tonsillectomy Additional Past Surgical History / Comment(s): Vasectomy, left knee surgery/ arthroscopy, facial surgery for a broken nose, neck surgery following a fall injury from a telephone pole and it's likely the patient had stabilization of his cervical spine, left carotid endarterectomy, peripheral vascular disease with insertion of vascular stents in lower extremities, hands surgery for a broken wrist, cholecystectomy Past Anesthesia/Blood Transfusion Reactions: Previous Problems w/ Anesthesia Additional Past Anesthesia/Blood Transfusion Reaction / Comment(s): WOKE UP DURING WRIST SX, MILD CLAUSTERPHOBIA Past Psychological History: No Psychological Hx Reported Additional Psychological History / Comment(s): PT LIVES AT HOME WITH HIS AND 1 ADULT SON. 1 INDOOR DOG. PT SERVED IN THE [employer] AND [email or web address]. BEFORE RETIRING PT HAD BEEN WORKING FOR [employer]. PT IS INDEPENDANT.NO OUTSIDE SERVICES. Smoking Status: Former smoker Past Alcohol Use History: None Reported Additional Past Alcohol Use History / Comment(s): STARTED SMOKING WHEN I WAS 8, QUIT 2004, WAS SMOKING 2-3 PPD Past Drug Use History: None Reported - Past Family History Father Family Medical History: Cancer Additional Family Medical History / Comment(s): STOMACH CANCER Mother Additional Family Medical History / Comment(s): POLIO Brother(s) Family Medical History: Myocardial Infarction ([place]) Medications and Allergies Home Medications Medication Instructions Recorded Confirmed Type Albuterol Nebulized [Ventolin 2.5 mg INHALATION RT-BID PRN 04/09/16 04/09/16 History Nebulized] Albuterol Sulfate [Proventil Hfa] 2 puff INHALATION RT-QID PRN 04/09/16 History Aspirin 325 mg PO DAILY 04/09/16 04/09/16 History Budesonide/Formoterol Fumarate 2 puff INHALATION RT-BID 04/09/16 04/09/16 History [Symbicort 80-4.5 Mcg Inhaler] Nitroglycerin Sl Tabs [Nitrostat] 0.4 mg SUBLINGUAL Q5M PRN 04/09/16 04/09/16 History Omeprazole [PriLOSEC] 20 mg PO AC-BID 04/09/16 04/09/16 History diphenhydrAMINE HCL [Benadryl] 25 mg PO DAILY PRN 04/09/16 04/09/16 History Allergies Allergy/AdvReac Type Severity Reaction Status Date / Time No Known Allergies Allergy Verified 04/09/16 11:08 Physical Exam Vitals: Vital Signs Temp Pulse Pulse Pulse Resp BP Pulse Ox 04/10/16 14:40 84 18 133/62 96 04/10/16 13:20 66 18 110/80 95 04/10/16 13:19 96 16 04/10/16 13:09 98 04/10/16 12:20 86 16 114/86 95 04/10/16 11:50 68 18 106/75 95 04/10/16 11:20 67 18 111/71 92 L 04/10/16 11:05 65 18 107/70 91 L 04/10/16 10:50 69 18 113/70 93 L 04/10/16 10:35 98.2 F 71 16 133/71 95 04/10/16 08:55 98.2 F 71 16 123/81 93 L 04/10/16 04:00 97.5 F L 99 17 135/67 92 L 04/10/16 00:00 98.0 F 101 H 18 168/79 99 04/09/16 20:00 99.3 F 96 16 125/65 92 L 04/09/16 16:00 97 F L 74 16 140/69 95 Intake and Output 04/10/16 04/10/16 04/10/16 06:59 14:59 22:59 Intake Total 312.239 50 Output Total 400 300 Balance -87.761 -250 Intake: IV 50 Intake, IV Titration 192.239 Amount Heparin Sodium,Porcine/ 192.239 D5w Pmx 25,000 unit In Dextrose/Water 1 500ml. bag @ 12 UNITS/KG/HR 19. 26 mls/hr IV .Q24H [facility] Rx #:[id number] Oral 120 Output: Urine 400 300 Other: Voiding Method Toilet Urinal # Voids 1 Weight 78.8 kg Head exam was generally normal. There was no scleral icterus or corneal arcus. Mucous membranes were moist.Neck was supple and without jugular venous distension, thyromegaly, or carotid bruits. Carotids were easily palpable bilaterally. There was no adenopathy. Scar of the previous surgery over the left anterior neck and posterior neck area. Lung sounds are diminished otherwise they're clear and there is no wheezes or rhonchi early crackles.Cardiac exam revealed the PMI to be normally situated and sized. The rhythm was regular and no extrasystoles were noted during several minutes of auscultation. The first and second heart sounds were normal and physiologic splitting of the second heart sound was noted. There were no murmurs, rubs, clicks, or gallops.. Abdominal exam revealed normal bowel sounds. The abdomen was soft, non-tender, and without masses, organomegaly, or appreciable enlargement of the abdominal aorta.. Examination of Of the extremities revealed easily palpable radial, femoral and pedal pulses. There was no cyanosis , clubbing or edema. Results - Laboratory Findings CBC and BMP: 04/09/16 10:36 04/09/16 10:36 PT/INR, D-dimer PT 10.7 sec (9.0-12.0) 04/09/16 10:36 INR 1.1 (<1.1) 04/09/16 10:36 D-Dimer 0.88 mg/L FEU (<0.60) H 04/09/16 10:36 Abnormal lab findings: Abnormal Labs 04/09/16 04/09/16 04/10/16 16:02 21:51 05:31 APTT 32.5 H Troponin I 0.036 H* HDL Cholesterol 38 L Urine Protein 04/10/16 04/10/16 05:32 14:00 APTT 63.5 H Troponin I HDL Cholesterol Urine Protein Trace H - Diagnostic Findings Chest x-ray: image reviewed CT scan - chest: image reviewed Assessment and Plan Plan: Impression 1 multivessel coronary artery disease, status post acute non-ST segment elevation myocardial infarction, awaiting a cardiothoracic surgery evaluation for possible cardiac coronary bypass surgery. Currently is free of any chest pain and he is hemodynamically stable 2 COPD, severity needs to be quantified by a bedside spirometry. The patient COPD stable and a CAT scan of the chest shows no acute pneumonia or any parenchymal lung changes. 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 he will also need a flow volume loop curves to make sure there is no evidence of any variable upper airway obstruction that could've resulted from his previous traumatic injury to his neck. he has a poor left a ejection fraction of around 20-25%, yet there is no signs of an acute decompensated heart failure at this point. CAT scan findings of the chest were noted and there is no abnormalities other than background COPD. Awaiting a cardiothoracic surgical consultation. provide the patient incentive spirometer. put the patient on DuoNeb treatments around the clock 4 times a day. Encourage ambulation. We'll continue to follow make further recommendations based on his progress.
[2016-04-10 16:14] LABS: Specific Gravity,Urine >1.050 (1.001-1.035)
[2016-04-10] MEDS: HEPARIN SODIUM,PORCINE/D5W PMX 25,000 UNIT in DEXTROSE/WATER 1 500ML.BAG IV SCH (17:46)
[2016-04-10] MEDS: LISINOPRIL 5 MG TAB PO SCH (20:37)
[2016-04-10] MEDS: FLUTICASONE 50MCG/SPRAY NASAL 16GM EA NOSTRIL SCH (20:53)
[2016-04-10] MEDS: IPRATROPIUM-ALBUTEROL 3 ML NEB INHALATION SCH (21:25)
--- NOTE | 2016-04-10 22:06 | CC ---
DATE OF SERVICE: Mr. Ramos is a 70-year-old male with known history of peripheral vascular disease who presented with symptoms of syncope; had minimal elevation of troponin. He has known abnormal myocardial perfusion imaging and was scheduled to undergo cardiac catheterization at the [place]. Because of his symptoms and presentation, recommendation was made regarding cardiac catheterization. The procedure as well as risks and complications were discussed with the patient, who was in full understanding and agreement. PROCEDURE: Patient was brought to the laborer pipeline in a fasting, semi-sedated state after receiving fentanyl and Benadryl. He was draped and prepped in conventional fashion. Using Xylocaine anesthesia and Seldinger technique, a 6 Syrian sheath was introduced in the right radial artery. Selective right and left coronary angiography was performed using 5 Syrian 3-1/2 bend right and left Lele catheters. Multiple views were taken of the arteries, including hemiaxial views. Following that, a 5 Syrian tight pigtail catheter was introduced in the left ventricle and a 30-degree CARTER view of the left ventricle was obtained. Following that, catheter and sheaths were removed. Hemostasis was obtained with deployment of TR band. There were no immediate complication. Patient was returned to his room in stable condition. Of note, the patient received 3500 units of intravenous heparin as well as intra-arterial Verapamil. FINDINGS FLUOROSCOPY: There is severe calcification involving all the coronary tree. LEFT MAIN: This is a large-sized vessel bifurcating into left circumflex, left anterior descending artery. Left main coronary artery has a 20% plaque distally. LEFT ANTERIOR DESCENDING ARTERY: This is a large-sized vessel reaching toward the apex with a wrap around the apex segment giving rise to 3 small diagonal branches, heavily calcified in the mid segment. In the mid segment there is an eccentric lesion of about 80%. The rest of the vessel has no high-grade stenosis. LEFT CIRCUMFLEX: This is a non-dominant vessel giving rise to 3 obtuse marginal branches. After the takeoff of the first obtuse marginal branch, there is a 99% stenosis. Subsequently the second obtuse marginal branch is totally occluded, and there is another lesion prior to the takeoff of the third obtuse marginal branch of about 70%. RIGHT CORONARY ARTERY: This vessel is totally occluded in the mid segment with minimal antegrade flow. COLLATERALS: There is a collateral from the left coronary system toward the right PDA and it appears to be small in caliber. LEFT VENTRICULOGRAM: Left ventriculogram was performed in 30-degree CARTER view and revealed inferior wall severe hypokinesis to akinesis. There was 2 to 3+ mitral regurgitation. Ejection fraction is about 35%. HEMODYNAMICS: There was no gradient across the aortic valve. The left ventricular end-diastolic pressure was 24 to 26 mmHg. CONCLUSION: 1. Severely calcified coronary arteries. 2. Severe triple-vessel coronary artery disease. 3. Severely impaired left ventricular systolic function. RECOMMENDATIONS: In view of findings and anatomy, I have recommended proceeding with evaluation for coronary artery bypass grafting. Those findings and recommendations were discussed with the patient. He is in full understanding and agreement.
[2016-04-11] MEDS: PANTOPRAZOLE 40 MG TABLET PO SCH ×2 (06:28→17:43)
[2016-04-11 06:45] LABS: Basophils % (A) 0 %; CH 29.5; CHCM 33.1; Eosinophils # (A) 0.4 k/uL (0-0.7); Eosinophils % (A) 7 %; HCT 40.4 % (39.0-53.0); HDW 3.19; Luc # (Auto) 0.24; Luc % (Auto) 4; Lymphocytes % (A) 17 %; MCH 28.7 pg (25.0-35.0); MCHC 32.1 g/dL (31.0-37.0); MCV 89.4 fL (80.0-100.0); Mean Platelet Volume 6.5; Monocytes # (A) 0.4 k/uL (0-1.0); Monocytes % (A) 7 %; Neutrophils # (A) 3.8 k/uL (1.3-7.7); Neutrophils % (A) 65 %; RBC 4.52 m/uL (4.30-5.90); RDW 13.8 % (11.5-15.5); WBC 5.9 k/uL (3.8-10.6); WBC (Perox) 6.26
[2016-04-11 06:56] LABS: Anion Gap 10 mmol/L; Calcium 8.3 mg/dL (8.4-10.2); Carbon Dioxide 23 mmol/L (22-30); Chloride 104 mmol/L (98-107); Glucose 102 mg/dL (74-99); Non-African American GFR(MDRD) >60 (>60 ml/min/1.73 sqM); Sodium 137 mmol/L (137-145)
[2016-04-11 07:10] LABS: Blood Urea Nitrogen 16 mg/dL (9-20); Potassium 4.8 mmol/L (3.5-5.1)
--- NOTE | 2016-04-11 07:47 | P.PN ---
Subjective Principal diagnosis: CAD, NSTEMI Awaiting CABG. Patient currently ambulating around the room in no apparent distress. Denies any chest pain last night. Objective - Vital Signs Vital signs: Vital Signs Temp 97.2 F L 04/11/16 03:27 Pulse 88 04/11/16 03:27 Resp 18 04/11/16 03:27 BP 142/77 04/11/16 03:27 Pulse Ox 92 L 04/11/16 03:27 Intake & Output 04/10/16 04/11/16 04/11/16 18:59 06:59 18:59 Intake Total 193.409 950 Output Total 300 2150 Balance -106.591 -1200 Weight 78.7 kg Intake: IV 50 350 Sodium Chloride 0.9% 1, 350 000 ml @ 100 mls/hr IV . Q10H [facility] Rx#:[id number] Intake, IV Titration 143.409 Amount Heparin Sodium,Porcine/ 143.409 D5w Pmx 25,000 unit In Dextrose/Water 1 500ml. bag @ 12 UNITS/KG/HR 19. 26 mls/hr IV .Q24H [facility] Rx #:[id number] Oral 600 Output: Urine 300 2150 Other: Voiding Method Urinal Urinal # Voids 1 - Constitutional General appearance: Present: cooperative, no acute distress - Respiratory Details: Lungs sounds diminished with expiratory wheezes bilaterally. Respirations even and nonlabored. Currently on room air. Able to achieve 1250 mL on his incentive spirometry. - Cardiovascular Details: S1, S2 present. Regular rate and rhythm, normal sinus rhythm on telemetry. Trace bilateral lower extremity edema present. - Gastrointestinal Gastrointestinal Comment(s): Abdomen soft, nontender, nondistended. Active bowel sounds 4 quadrants. Tolerating diet - Genitourinary Genitourinary Comment(s): Voiding clear, yellow urine per urinal. - Musculoskeletal Musculoskeletal: Present: gait normal - Psychiatric Psychiatric: Present: A&O x's 3, appropriate affect, intact judgment & insight - Allied health notes Allied health notes reviewed: nursing - Labs CBC & Chem 7: 04/11/16 06:19 04/11/16 06:19 Labs: Abnormal Lab Results - Last 24 Hours (Table) 04/10/16 04/11/16 04/11/16 Range/Units 14:00 01:07 06:19 APTT 59.1 H 68.4 H (22.0-30.0) sec Glucose (74-99) mg/dL Calcium (8.4-10.2) mg/dL Ur Specific [place] >1.050 H (1.001-1.035) Urine Protein Trace H (Negative) 04/11/16 Range/Units 06:19 APTT (22.0-30.0) sec Glucose 102 H (74-99) mg/dL Calcium 8.3 L (8.4-10.2) mg/dL Ur Specific [place] (1.001-1.035) Urine Protein (Negative) Microbiology - Last 24 Hours (Table) 04/10/16 14:00 Urine Culture - Preliminary Urine,Voided 04/10/16 12:55 Nasal Screen MRSA/MSSA ([facility]) - Preliminary Nasal Swab - Imaging and Cardiology Carotid Dopplers, echocardiogram reviewed. Assessment and Plan (1) Chest pain Status: Acute (2) Syncope and collapse Status: Acute (3) Peripheral artery disease Status: Acute (4) COPD (chronic obstructive pulmonary disease) Status: Acute (5) Coronary artery disease Status: Acute Plan: 1. Cont ASA, BB, ELLEN, Statin 2. Pre-op testing ordered, available results reviewed 3. Pre-op teaching started, cont to reinforce 4. Dr. Lai consulted for pulmonology work-up 5. Will consult ENT to evaluate vocal cords. 6. Will consult vascular surgery to perform right CEA at the same time as his CABG 7. Plan for CABG x 3 in the near future dependent on pending tests and patient status 8. Emotional support for patient and family Time with Patient: Greater than 30
[2016-04-11] MEDS: SYMBICORT 80-4.5 MCG INHALER INHALATION SCH ×2 (08:10→21:34)
[2016-04-11] MEDS: IPRATROPIUM-ALBUTEROL 3 ML NEB INHALATION SCH ×3 (08:32→16:05)
--- NOTE | 2016-04-11 09:03 | PN ---
DATE OF SERVICE: 04/10/2016 INTERVAL HISTORY: Mr. Ramos is a 70-year-old male with known history of chronic obstructive pulmonary disease, gastroesophageal reflux disease, severe coronary artery disease, and peripheral vascular disease with left carotid endarterectomy who was admitted to the hospital with syncopal episode and elevated troponin level. Currently the patient is being evaluated for cardiac bypass graft. 2-D echo showed ejection fraction of 20 to 25%. Otherwise, patient is lying in bed comfortably. No signs of decompensation. No complaint of chest pain or short of breath. No acute overnight issues. REVIEW OF SYSTEMS: No fever. No chills. RESPIRATORY: No cough or sputum production. CARDIOVASCULAR: No chest pain or shortness of breath. ABDOMEN: No nausea, vomiting or abdominal pain. GENITOURINARY: Negative. ENDOCRINE: Negative. PSYCHIATRY: Negative. SKIN: Negative. All other fourteen point review of systems negative except as above. CURRENT MEDICATIONS: Reviewed. PHYSICAL EXAMINATION: A 70-year-old male lying in bed, comfortably, awake, alert, oriented x3, appears to be in no apparent distress. VITALS: Blood pressure is 156/90, pulse is 90, respirations 18, temperature afebrile. Pulse ox 90% on room air. HEENT: Atraumatic, normocephalic. Neck is supple. No JVD. CVS: S1, S2 heard. No murmurs, no gallop, no rub. LUNGS: Bilateral air entry is present. Decreased breath sounds basally. No rhonchi, nonlabored breathing. ABDOMEN: Soft, nontender. Bowel sounds present. [employer] TE[employer]ER: Awake, alert and oriented x3. No focal deficits. EXTREMITIES: No edema. Pulses palpable bilaterally. No clubbing or cyanosis. PSYCHIATRIC: Cooperative. LABORATORY DATA: ( ) 1.1, LDL 98, HbA1c 5.9. IMPRESSION: 1. Syncope and fall. Likely cardiogenic/ischemic. 2. Severe coronary artery disease, multivessel disease. 3. Congestive heart failure with ejection fraction 20 to 25%, chronic systolic dysfunction. 4. Elevated troponin level with possible non-ST elevated myocardial infarction. 5. Elevated D-dimer. CTA negative for any pulmonary embolism. 6. History of peripheral vascular disease, status post left carotid endarterectomy. Carotid duplex showed a 70% stenosis now. 7. Chronic obstructive pulmonary disease. 8. Gastroesophageal reflux disease. 9. History of atrial fibrillation. DISCUSSION AND PLAN: Patient will be continued on breathing treatments and continue the heparin and cardiothoracic surgery is following this patient to evaluate for coronary artery bypass graft. Pulmonology and Cardiology are following this patient. Further recommendations based on the clinical course.
[2016-04-11] MEDS: ATORVASTATIN 80 MG TAB PO SCH (09:09)
[2016-04-11] MEDS: LISINOPRIL 5 MG TAB PO SCH ×2 (09:09→19:54)
[2016-04-11] MEDS: ASPIRIN 325 MG TAB PO SCH (09:09)
[2016-04-11] MEDS: FLUTICASONE 50MCG/SPRAY NASAL 16GM EA NOSTRIL SCH (09:09)
[2016-04-11] MEDS: METOPROLOL TARTRATE 25 MG TAB PO SCH ×2 (09:10→19:54)
--- NOTE | 2016-04-11 12:21 | PN ---
Mr. Ramos a 70-year-old male with known history of peripheral vascular disease, status post percutaneous revascularization, status post left carotid endarterectomy who presents with syncopal episode with minimal elevation of troponin, underwent cardiac catheterization, was found to have severe triple vessel coronary artery disease with moderate to severe impairment of left ventricular systolic function with 2 to 3+ mitral regurgitation. He is doing well this morning. He still has mild cough. He is denying any chest pain. His breathing is unchanged. He denies any dizziness or palpitation. On the monitor, he has no evidence of tachy or nolan arrhythmia. He continues to be at this time on aspirin, Lipitor 80 mg daily, IV heparin, lisinopril 5 mg twice a day, metoprolol tartrate 25 mg twice a day. PHYSICAL EXAMINATION: Blood pressure 116/60 with the heart rate in the 90s. LUNGS: With decreased air exchange. No wheezes. HEART: Regular rate rhythm. S1, S2, no S3, no rub. ABDOMEN: Soft, nontender. EXTREMITIES: No edema. Right radial pulse intact. Lab data revealed BUN and creatinine 16 and 0.93. Hemoglobin of 13. His cholesterol is 157, LDL of 98. IMPRESSION: 1. Severe triple vessel coronary artery disease with moderate to severely impaired left ventricular systolic function. The patient appears that he had a remote inferior myocardial infarction of unknown duration. 2. Prior history of chronic tobacco use and chronic obstructive lung disease. 3. History of carotid endarterectomy. 4. Peripheral vascular disease, status post lower extremity revascularization percutaneously. 5. Hyperlipidemia. RECOMMENDATIONS: Patient was seen by the pulmonary service to optimize his lung status and also seen by the cardiovascular surgery department for surgical intervention. The plan is to optimize his situation and hopefully proceed with revascularization early next week. From the cardiac standpoint, I will recommend to proceed with transesophageal echocardiogram o evaluate his mitral valve regurgitation and guide his surgical approach. The rationale behind the procedure as well as risks and complications were discussed with the patient who is in full understanding and agreement. Depending on his progress, further recommendation will be made.
[2016-04-11] MEDS ORDERED: MIDAZOLAM 2 MG/2 ML VIAL ONE (13:48)
[2016-04-11] MEDS ORDERED: fentaNYL (PF) 50 MCG/ML 2 ML AMP ONE (13:49)
[2016-04-11] MEDS ORDERED: IV FLUID CONTINUATION 1,000 ML IV ONE (14:16)
[2016-04-11] MEDS: BENZOCAINE SPRAY 100 APPLIC/CAN MUCOUS MEM ONE ×3 (14:19→14:44)
[2016-04-11] MEDS ORDERED: fentaNYL (PF) 50 MCG/ML 2 ML AMP IV ONE (14:45)
[2016-04-11] MEDS ORDERED: MIDAZOLAM 2 MG/2 ML VIAL IVP ONE ×2 (14:45→14:46)
--- NOTE | 2016-04-11 15:13 | ECHOT ---
DATE OF SERVICE: INDICATION: Evaluation of mitral valve. PROCEDURE: After explaining the procedure to the patient, its risk and complications, his blood pressure, heart rate and O2 saturation were monitored. The throat was sprayed with Cetacaine. He received 2 mg of intravenous Versed, 50 mcg intravenous fentanyl. The probe was introduced into the esophagus without difficulty. Images were obtained. Following that, the probe was removed. There were no immediate complications. FINDINGS: Left atrial size appears to be dilated. Left atrial appendage is normal. Left ventricular size is normal. The inferobasal wall and inferoseptal wall are akinetic. Estimated ejection fraction of 35% to 40%. The aortic valve revealed fibrocalcific change of the aortic cusp. The mitral valve appears to be normal. The tricuspid valve appear to be normal. Descending thoracic aorta revealed mild atherosclerotic changes. No pericardial effusion was noted. Contrast bubble study revealed no evidence of shunting across the interatrial septum. Doppler pulse wave and color Doppler obtained and revealed moderate mitral with mild tricuspid regurgitation. There is no shunting by color Doppler study. CONCLUSION: 1. Normal left ventricular size with a moderate to severely impaired left ventricular systolic function and segmental wall motion abnormality. 2. Aortic sclerosis with no evidence of stenosis. 3. Moderate mitral regurgitation with mild tricuspid regurgitation. 4. Mild atherosclerotic changes of the descending thoracic aorta. 5. No shunting by color Doppler study.
[2016-04-11] MEDS: HEPARIN SODIUM,PORCINE/D5W PMX 25,000 UNIT in DEXTROSE/WATER 1 500ML.BAG IV SCH (16:18)
[2016-04-11] MEDS: SODIUM CHLORIDE 0.9% 1,000 ML IV SCH ×2 (16:19→16:20)
--- NOTE | 2016-04-11 16:28 | P.PN ---
Subjective 70-year-old male patient who presented to the hospital because of syncopal episode. The patient had a brief syncope associated with some chest pain/chest discomfort. The patient was suspected to have underlying coronary artery disease based on his risk factors. He was taken to [facility] and he was found to have significant triple-vessel disease. A cardiothoracic consultation was requested to evaluate this patient for cardiac bypass surgery. Mother the patient also has history of carotid artery disease and he has undergone a endarterectomy on the left and he has a 70% stenosis of the intercurrent artery on the right. In terms of his breathing, he is able to walk long distances if he goes slow. He is able to climb a flight of stairs without any major difficulties. He uses Symbicort as maintenance in regards to COPD and Proventil /Ventolin rescue inhaler on a when necessary basis. No recent authorization for COPD exacerbation. No recent pneumonias. The patient relates to a previous injury to his neck area as the patient had fallen off the pole and sustained a injury to his face and chin and ultimately underwent a cervical neck surgery for a fall related injury to the neck/fracture. He was told to have some vocal cord dysfunction probably a unilateral vocal cord paralysis however I'm not certain of this. He is currently free of any chest pain. No 70 DVTs or pulmonary embolism. No alcoholism. A baseline poor function test or an FEV1 has not been measured.. His chest x-ray showed no acute cardio pulmonary abnormalities. The CAT scan of the chest shows evidence of mild COPD with evidence of chronic bronchitis, subtle groundglass nodules in the lower lobes bilaterally and a anterior wedging of the T5 spine and old healed fracture deformity of the sternal body. There was no evidence of any pulmonary embolism. On 04/10/2016 the patient is being seen in follow-up. A bedside spirometry was done and the patient was found to have severe obstructive airway limitation with an FEV1 of 26% of predicted. This is consistent with severe COPD which obviously wouldn't carry a high postoperative pulmonary complications rate. This advanced lung disease in addition to possible vocal cord paralysis with add significant mortality risk in this patient. As mentioned earlier he has a impaired LV function in addition and poor targets for revascularization. Objective - Vital Signs Vital signs: Vital Signs Temp 97.5 F L 04/11/16 15:45 Pulse 75 04/11/16 15:45 Resp 16 04/11/16 15:45 BP 126/75 04/11/16 15:45 Pulse Ox 90 L 04/11/16 15:45 Intake & Output 04/10/16 04/11/16 04/11/16 18:59 06:59 18:59 Intake Total 193.409 950 600 Output Total 300 2150 600 Balance -106.591 -1200 0 Weight 78.7 kg Intake: IV 50 350 100 Sodium Chloride 0.9% 1, 350 000 ml @ 100 mls/hr IV . Q10H [facility] Rx#:[id number] Intake, IV Titration 143.409 500 Amount Heparin Sodium,Porcine/ 143.409 500 D5w Pmx 25,000 unit In Dextrose/Water 1 500ml. bag @ 12 UNITS/KG/HR 19. 26 mls/hr IV .Q24H [facility] Rx #:[id number] Oral 600 0 Output: Urine 300 2150 600 Other: Voiding Method Urinal Urinal Urinal # Voids 1 - Exam Head exam was generally normal. There was no scleral icterus or corneal arcus. Mucous membranes were moist.Neck was supple and without jugular venous distension, thyromegaly, or carotid bruits. Carotids were easily palpable bilaterally. There was no adenopathy. Lung sounds are diminished bilaterally and there are some few scattered external wheeze.Cardiac exam revealed the PMI to be normally situated and sized. The rhythm was regular and no extrasystoles were noted during several minutes of auscultation. The first and second heart sounds were normal and physiologic splitting of the second heart sound was noted. There were no murmurs, rubs, clicks, or gallops.Abdominal exam revealed normal bowel sounds. The abdomen was soft, non-tender, and without masses, organomegaly, or appreciable enlargement of the abdominal aorta.Examination of the extremities revealed easily palpable radial, femoral and pedal pulses. There was no cyanosis, clubbing or edema. - Labs CBC & Chem 7: 04/11/16 06:19 04/11/16 06:19 Labs: Abnormal Lab Results - Last 24 Hours (Table) 04/11/16 04/11/16 04/11/16 Range/Units 01:07 06:19 06:19 APTT 59.1 H 68.4 H (22.0-30.0) sec Glucose 102 H (74-99) mg/dL Calcium 8.3 L (8.4-10.2) mg/dL Microbiology - Last 24 Hours (Table) 04/10/16 14:00 Urine Culture - Preliminary Urine,Voided 04/10/16 12:55 Nasal Screen MRSA/MSSA ([facility]) - Preliminary Nasal Swab Assessment and Plan Plan: Impression 1 multivessel coronary artery disease, status post acute non-ST segment elevation myocardial infarction, awaiting a cardiothoracic surgery evaluation for possible cardiac coronary bypass surgery. Currently is free of any chest pain and he is hemodynamically stable 2 COPD, severe, and based on a spirometer the patient has an FEV1 of 26% of predicted consistent with advanced and severe COPD. 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 He has advanced COPD. He also has severe cardiomyopathy with impaired LV function. There is a suspicion for a paralyzed vocal cords. He also has a right carotid artery stenosis on the right. Putting all these things together, particularly the patient's mortality risk significantly and unfortunately I'm unable to clear this patient for surgery at this point in time. He carries a very high postop the pulmonary and cardiac complication rates and he may not survive this procedure. I discussed the case with the cardiothoracic surgeon, Dr. Castellanos, and we decided to proceed with bronchodilators and systemic steroids and repeat his FEV1 within next few days. If no improvement, medical treatment will be recommended.
--- NOTE | 2016-04-11 16:57 | P.GSCN ---
History of Present Illness Consult date: 04/11/16 Reason for Consult: Airway evaluation Requesting physician: Parish Lai History of present illness: This is a 70 year old white male who in 2003 suffered a head trauma driving his cervical vertebrae downward. He tells me that since that time he's had some difficulty breathing. He has no significant swallowing difficulty. His breathing difficulties intermittent. He does have an expiratory wheeze. He saw an glaucoma specialist years ago and stated that the wheezing is from an upper airway phenomenon and he did not remember what the diagnosis consisted of whether was reflux or another issue. Nevertheless, he tells me that he has some difficulty breathing has a cough which she describes as a cough emanating from his throat. A cough where he cannot bring up secretions. He has a 75-pack -year history of smoking. He was living in [place] where smoking was pretty common. He is scheduled to undergo open heart surgery and I've been asked to consult regarding this patient's airway. Again he has a cough which she describes as a irritation to his throat. He does have expiratory wheezing but not inspiratory wheezing. Review of Systems - Constitutional Denies anorexia - EENT Ears, nose, mouth and throat: Denies epistaxis - Cardiovascular Denies high blood pressure - Respiratory Respiratory Comment(s): Expiratory wheezing Reports cough, Reports wheezing - Gastrointestinal Denies belching - Genitourinary Denies dysuria - Musculoskeletal Denies gait dysfunction - Integumentary Denies change in hair/nails Past Medical History Past Medical History: COPD, GERD/Reflux, Osteoarthritis (OA) Additional Past Medical History / Comment(s): COPD, osteoarthritis, multivessel coronary artery disease as mentioned above, history of sternal fracture secondary to fall, history of neck injury secondary to fall and there is a vague history of a vocal cords injury/paralysis at a time of the fall that occurred approximately 14 years ago. History of Any Multi-Drug Resistant Organisms: None Reported Past Surgical History: Orthopedic Surgery, Tonsillectomy Additional Past Surgical History / Comment(s): Vasectomy, left knee surgery/ arthroscopy, facial surgery for a broken nose, neck surgery following a fall injury from a telephone pole and it's likely the patient had stabilization of his cervical spine, left carotid endarterectomy, peripheral vascular disease with insertion of vascular stents in lower extremities, hands surgery for a broken wrist, cholecystectomy Past Anesthesia/Blood Transfusion Reactions: Previous Problems w/ Anesthesia Additional Past Anesthesia/Blood Transfusion Reaction / Comm: WOKE UP DURING WRIST SX, MILD CLAUSTERPHOBIA Past Psychological History: No Psychological Hx Reported Additional Psychological History / Comment(s): PT LIVES AT HOME WITH HIS AND 1 ADULT SON. 1 INDOOR DOG. PT SERVED IN THE [employer] AND THE [employer]. BEFORE RETIRING PT HAD BEEN WORKING FOR [employer]. PT IS INDEPENDANT.NO OUTSIDE SERVICES. Smoking Status: Former smoker Past Alcohol Use History: None Reported Additional Past Alcohol Use History / Comment(s): STARTED SMOKING WHEN I WAS 8, QUIT 2004, WAS SMOKING 2-3 PPD Past Drug Use History: None Reported - Past Family History Father Family Medical History: Cancer Additional Family Medical History / Comment(s): STOMACH CANCER Mother Additional Family Medical History / Comment(s): POLIO Brother(s) Family Medical History: Myocardial Infarction (VT) Medications and Allergies Home Medications Medication Instructions Recorded Confirmed Type Albuterol Nebulized [Ventolin 2.5 mg INHALATION RT-BID PRN 04/09/16 04/09/16 History Nebulized] Albuterol Sulfate [Proventil Hfa] 2 puff INHALATION RT-QID PRN 04/09/16 History Aspirin 325 mg PO DAILY 04/09/16 04/09/16 History Budesonide/Formoterol Fumarate 2 puff INHALATION RT-BID 04/09/16 04/09/16 History [Symbicort 80-4.5 Mcg Inhaler] Nitroglycerin Sl Tabs [Nitrostat] 0.4 mg SUBLINGUAL Q5M PRN 04/09/16 04/09/16 History Omeprazole [PriLOSEC] 20 mg PO AC-BID 04/09/16 04/09/16 History diphenhydrAMINE HCL [Benadryl] 25 mg PO DAILY PRN 04/09/16 04/09/16 History Allergies Allergy/AdvReac Type Severity Reaction Status Date / Time No Known Allergies Allergy Verified 04/09/16 11:08 Surgical - Exam Osteopathic Statement: *. No significant issues noted on an osteopathic structural exam other than those noted in the History and Physical/Consult. Vital Signs Temp Pulse Resp BP Pulse Ox 97.1 F L 90 20 119/83 97 04/09/16 10:05 04/09/16 10:05 04/09/16 10:05 04/09/16 10:05 04/09/16 10:05 - General well developed, well nourished, no distress - ENT Patient has mild hoarseness. Head is was felt the face is symmetric, there are no abnormal movements, there is noted tenderness to the sinuses are mastoids, there are no nodules or eruptions or parasites on scalp. Nose is patent with a left septal deviation noted. Mouth and throat no oral lesions are noted. Neck is unremarkable other than the scar for a carotid endarterectomy. Hoarseness is noted. normal pinna, normal nares, normal mucosa - Neck no masses - Respiratory Expiratory wheezing noted other - Integumentary no rash - Neurologic normal coordination - Psychiatric oriented to time, oriented to person (Like were answered 04 visit were disconnected 6 weeks), oriented to place Results - Labs 04/11/16 06:19 04/11/16 06:19 Abnormal Lab Results - Last 24 Hours (Table) 04/11/16 04/11/16 04/11/16 Range/Units 01:07 06:19 06:19 APTT 59.1 H 68.4 H (22.0-30.0) sec Glucose 102 H (74-99) mg/dL Calcium 8.3 L (8.4-10.2) mg/dL Microbiology - Last 24 Hours (Table) 04/10/16 14:00 Urine Culture - Preliminary Urine,Voided 04/10/16 12:55 Nasal Screen MRSA/MSSA ([facility]) - Preliminary Nasal Swab Diabetes panel 04/11/16 Range/Units 06:19 Sodium 137 (137-145) mmol/L Potassium 4.8 (3.5-5.1) mmol/L Chloride 104 (98-107) mmol/L Carbon Dioxide 23 (22-30) mmol/L BUN 16 (9-20) mg/dL Creatinine 0.93 (0.66-1.25) mg/dL Glucose 102 H (74-99) mg/dL Calcium 8.3 L (8.4-10.2) mg/dL Calcium panel 04/11/16 Range/Units 06:19 Calcium 8.3 L (8.4-10.2) mg/dL Pituitary panel 04/11/16 Range/Units 06:19 Sodium 137 (137-145) mmol/L Potassium 4.8 (3.5-5.1) mmol/L Chloride 104 (98-107) mmol/L Carbon Dioxide 23 (22-30) mmol/L BUN 16 (9-20) mg/dL Creatinine 0.93 (0.66-1.25) mg/dL Glucose 102 H (74-99) mg/dL Calcium 8.3 L (8.4-10.2) mg/dL Adrenal panel 04/11/16 Range/Units 06:19 Sodium 137 (137-145) mmol/L Potassium 4.8 (3.5-5.1) mmol/L Chloride 104 (98-107) mmol/L Carbon Dioxide 23 (22-30) mmol/L BUN 16 (9-20) mg/dL Creatinine 0.93 (0.66-1.25) mg/dL Glucose 102 H (74-99) mg/dL Calcium 8.3 L (8.4-10.2) mg/dL Assessment and Plan (1) Expiratory wheezing Narrative/Plan: This patient's upper airway examination is completely normal. His expiratory wheezing is all lower airway. His vocal cords base of tongue vallecula hypo- pharynx and oropharynx show no signs of any pathology. Patient is cleared for intubation for open heart surgery for tomorrow. I see no difficulties with intubation. Again there are no evidence of any tumors masses. He does have some limited neck mobility but with use of a glide scope which shouldn't be difficult to elevate this patient. He should be able to accept are normal size endotracheal tube. Status: Acute Time with Patient: Greater than 30
--- NOTE | 2016-04-11 17:01 | P.OP ---
Date of Procedure: 04/11/16 Preoperative Diagnosis: Expiratory wheezing possible upper airway abnormality per patient history Postoperative Diagnosis: Same Procedure(s) Performed: Flexible nasopharyngeal laryngoscopy Anesthesia: none Surgeon: Gasper Shore Estimated Blood Loss (ml): 0 Pathology: none sent Condition: stable Disposition: PACU Indications for Procedure: Patient had a neck injury in 2003 plans he is difficulty with breathing as arise to his upper airway. Patient has a many year history of smoking. He has exhibited expiratory wheezing. An upper airway examination has been requested as the patient is undergoing cardiac surgery tomorrow. He does have some limited neck mobility. Operative Findings: Patient demonstrates no pathology of the upper airway. He does have a left septal deviation. The nasopharynx, oropharynx, hypopharynx shows no signs of pathology. Since no signs of any tumors or masses. Vocal cord function is excellent. I do not see any evidence of laryngopharyngeal reflux. In addition should not be difficult. I would have a glidescope available as he does have some neck mobility issues. Description of Procedure: Patient was sitting upright and a verbal consent was given. The patient is a hyperactive gag reflex. An EF type GP nasopharyngoscope was inserted into the patient's right nares as the patient has a significant left septal deviation. We passed the scope into the nasopharynx with no evidence of pathology. With no evidence of any pathology of the oropharynx or hypopharynx. We evaluated the base of tongue, vallecula, epiglottis, lateral pharynx, piriform sinus [place] cords etc. No pathology was noted. Airway looks open. Vocal cord movement is excellent. Expiratory wheezing was noted. This appears to be secondary to his COPD. There is no evidence of any inspiratory stridor.
[2016-04-11] MEDS: methylPREDNISolone SOD SUCCI 125 MG/2 ML VIAL IV SCH ×2 (17:43→23:23)
[2016-04-11] MEDS ORDERED: IPRATROPIUM 0.5 MG/2.5 ML NEBU INHALATION PRN (17:52)
[2016-04-11] MEDS ORDERED: MD COMMUNICATION TO PHARMACY 1 EACH MISC PO PRN (18:43)
[2016-04-11] MEDS ORDERED: PROVENTIL INHALATION PRN (18:51)
[2016-04-11 20:51] LABS: Glucose,Whole Blood 141 mg/dL (75-99)
[2016-04-11] MEDS: MUPIROCIN 2% OINT 22 GM TUBE TOPICAL SCH (21:02)
--- NOTE | 2016-04-11 21:14 | PN ---
Patient is a 70 -year-old admitted to the hospital with a history of COPD and patient does have some laryngeal issues because of which the patient has chronic cough. Patient was found to have, patient is admitted for non-ST elevation myocardial infarction, underwent cardiac catheterization and found to have three vessel disease and the patient has ischemic cardiomyopathy, with ejection fraction 40 to 45%. Otherwise, suspicion of mitral valve prolapse, because of which patient is undergoing ( ). The patient had concerns about coronary artery bypass grafting because of his cough and which can interfere with the sternotomy, which can interfere with postsurgical sternotomy john and healing. REVIEW OF SYSTEMS: CARDIOVASCULAR: No chest pain, no orthopnea, no PND, no palpitations. PULMONARY: Denied any shortness of breath. No cough or hemoptysis. GASTROINTESTINAL: No diarrhea, nausea or vomiting. No abdominal pain. Normoactive bowel sounds. NEUROLOGIC: No headaches, no weakness, no numbness. Medications were reviewed. PHYSICAL EXAMINATION: VITAL SIGNS: Temperature 97.5, pulse of 75, respiratory rate of 16, blood pressure is 139/75. Saturating at 98% on room air. GENERAL: The patient is alert and oriented x3, not in any acute distress. Well developed, well nourished. HEENT: Pupils are round and equally reacting to light. EOMI. No scleral icterus. No conjunctival pallor. Normocephalic, atraumatic. No pharyngeal erythema. No thyromegaly. CARDIOVASCULAR: S1 and S2 present. The patient has a systolic murmur in the mitral area radiating to the apex. PULMONARY: Chest is clear to auscultation, no wheezing or crackles. ABDOMEN: Soft, nontender, nondistended, normoactive bowel sounds. No palpable organomegaly. MUSCULOSKELETAL: No joint swelling or deformity. EXTREMITIES: No cyanosis, clubbing, or pedal edema. NEUROLOGICAL: Gross neurological examination did not reveal any focal deficits. SKIN: No rashes. LABORATORY DATA: CBC and basic metabolic profile essentially within normal limits. ASSESSMENT AND PLAN: 1. [id number]-[id number] myocardial infarction with major three vessel disease, further evaluation by cardiothoracic surgery. Please refer to their dictation. 2. Chronic obstructive pulmonary disease without any acute exacerbation. 3. Congestive heart failure, chronic systolic dysfunction with acute exacerbation, ejection fraction of around 20 to 25%. 4. Peripheral vascular disease. 5. Gastroesophageal reflux disease appears to have chronic laryngeal issues for which Dr. Shore was consulted. PLAN: The patient will undergo ETLON followed by ( ) regarding coronary artery bypass grafting and in the meantime we will await for cardiomyopathy. Impaired LV function, which is most probably ischemic cardiomyopathy.
[2016-04-11] MEDS: LEVALBUTEROL NEB 1.25 MG/3 ML AMP INHALATION SCH (21:35)
[2016-04-11] MEDS: INSULIN LISPRO (humaLOG) 300 UNIT/3 ML VIAL SQ SCH (23:23)
[2016-04-12 05:42] VITALS: RESP 18
[2016-04-12] MEDS: methylPREDNISolone SOD SUCCI 125 MG/2 ML VIAL IV SCH ×2 (06:50→12:02)
[2016-04-12] MEDS: PANTOPRAZOLE 40 MG TABLET PO SCH (06:50)
[2016-04-12 06:52] LABS: Glucose,Whole Blood 201 mg/dL (75-99)
[2016-04-12] MEDS: INSULIN LISPRO (humaLOG) 300 UNIT/3 ML VIAL SQ SCH ×2 (06:55→12:02)
[2016-04-12] MEDS: LEVALBUTEROL NEB 1.25 MG/3 ML AMP INHALATION SCH ×3 (07:44→15:20)
[2016-04-12] MEDS: SYMBICORT 80-4.5 MCG INHALER INHALATION SCH (07:44)
[2016-04-12 07:48] LABS: Anion Gap 9 mmol/L; Blood Urea Nitrogen 18 mg/dL (9-20); Calcium 8.9 mg/dL (8.4-10.2); Carbon Dioxide 27 mmol/L (22-30); Chloride 105 mmol/L (98-107); Glucose 182 mg/dL (74-99); Non-African American GFR(MDRD) >60 (>60 ml/min/1.73 sqM); Potassium 4.7 mmol/L (3.5-5.1); Sodium 141 mmol/L (137-145)
[2016-04-12] MEDS: METOPROLOL TARTRATE 25 MG TAB PO SCH (08:19)
[2016-04-12] MEDS: MUPIROCIN 2% OINT 22 GM TUBE TOPICAL SCH ×2 (08:20→10:31)
[2016-04-12] MEDS: ASPIRIN 325 MG TAB PO SCH (08:20)
[2016-04-12] MEDS: FLUTICASONE 50MCG/SPRAY NASAL 16GM EA NOSTRIL SCH (08:20)
[2016-04-12] MEDS: LISINOPRIL 5 MG TAB PO SCH (08:20)
[2016-04-12] MEDS: ATORVASTATIN 80 MG TAB PO SCH (08:20)
--- NOTE | 2016-04-12 08:30 | P.PN ---
Subjective Principal diagnosis: CAD, NSTEMI Awaiting CABG. Patient currently sitting up in bed eating breakfast in no apparent distress. States he would prefer to go home and follow up with the physicians for surgery in the future versus staying in the hospital this weekend. Objective - Vital Signs Vital signs: Vital Signs Temp 97.0 F L 04/12/16 04:00 Pulse 73 04/12/16 04:00 Resp 18 04/12/16 04:00 BP 145/53 04/12/16 04:00 Pulse Ox 94 L 04/12/16 04:00 Intake & Output 04/11/16 04/12/16 04/12/16 18:59 06:59 18:59 Intake Total 600 600 356.785 Output Total 600 Balance 0 600 356.785 Weight 76.6 kg Intake: IV 100 Intake, IV Titration 500 356.785 Amount Heparin Sodium,Porcine/ 500 356.785 D5w Pmx 25,000 unit In Dextrose/Water 1 500ml. bag @ 12 UNITS/KG/HR 19. 26 mls/hr IV .Q24H [facility] Rx #:[id number] Oral 0 600 Output: Urine 600 Other: Voiding Method Urinal Urinal # Voids 1 - Constitutional General appearance: Present: cooperative, mild distress - Respiratory Details: Lung sounds very diminished. Respirations even but slightly labored at this point. Currently on room air. - Cardiovascular Details: S1, S2 present. Regular rate and rhythm, normal sinus rhythm on telemetry. No edema. SCDs on when patient's in bed. - Gastrointestinal Gastrointestinal Comment(s): Abdomen soft, nontender, nondistended. Active bowel sounds 4 quadrants. Tolerating diet. - Genitourinary Genitourinary Comment(s): Continues to void clear, yellow urine. - Musculoskeletal Musculoskeletal: Present: gait normal - Psychiatric Psychiatric: Present: A&O x's 3, appropriate affect, intact judgment & insight - Allied health notes Allied health notes reviewed: nursing - Labs CBC & Chem 7: 04/11/16 06:19 04/12/16 06:19 Labs: Abnormal Lab Results - Last 24 Hours (Table) 04/11/16 04/12/16 04/12/16 Range/Units 20:50 06:19 06:22 APTT 84.1 H (22.0-30.0) sec Glucose 182 H (74-99) mg/dL POC Glucose (mg/dL) 141 H (75-99) mg/dL 04/12/16 Range/Units 06:51 APTT (22.0-30.0) sec Glucose (74-99) mg/dL POC Glucose (mg/dL) 201 H (75-99) mg/dL Microbiology - Last 24 Hours (Table) 04/10/16 12:55 Nasal Screen MRSA/MSSA (MAGDA) - Final Nasal Swab 04/10/16 14:00 Urine Culture - Final Urine,Voided Assessment and Plan (1) Chest pain Status: Acute (2) Syncope and collapse Status: Acute (3) Peripheral artery disease Status: Acute (4) COPD (chronic obstructive pulmonary disease) Status: Acute (5) Coronary artery disease Status: Acute Plan: 1. Cont ASA, BB, ELLEN, Statin 2. Pre-op testing ordered, available results reviewed 3. Pre-op teaching started, cont to reinforce 4. Dr. Lai consulted for pulmonology work-up. Patient not cleared at this time for surgery per pulmonology. Will continue steroids and bronchodilators. 5. No problems with vocal cords or planned intubation per ENT 6. Will consult vascular surgery to perform right CEA at the same time as his CABG 7. Will await clearance from pulmonology for possible CABG in the near future. 8. Emotional support for patient and family Time with Patient: Greater than 30
[2016-04-12 08:31] VITALS: PULSE 75
--- NOTE | 2016-04-12 10:55 | PN ---
Mr. Ramos is a 70-year-old male who presented with syncopal episode with minimal troponin elevation. He has underwent a cardiac catheterization, was found to have severe triple vessel coronary artery disease with severely impaired left ventricular systolic function. He underwent transesophageal echocardiogram yesterday and was found to have a severely impaired left ventricular systolic function with moderate mitral regurgitation. He is feeling well today. He denies any symptoms of chest pain. He denies any dizziness or palpitation. He denies any nausea. He was evaluated by Dr. Shore and underwent evaluation because of his prior episode of wheezing he was found to have a normal upper airway examination with no signs of pathology. He was seen by Dr. Lai and he was felt to be a high risk from the pulmonary status and Dr. Lai is adjusting his treatment to see if there is improvement in his PFTs. He continues to be at this time on aspirin, Lipitor 80 mg daily, IV heparin, lisinopril 5 mg twice a day, metoprolol tartrate 25 mg twice a day. PHYSICAL EXAMINATION: Blood pressure running in the 130s to 150s with the heart rate in the 70s. LUNGS: No wheezes with decreased air exchange. HEART: Regular rate and rhythm. S1, S2, no S3, with systolic murmur. No diastolic murmur. ABDOMEN: Soft, nontender. EXTREMITIES: No edema. Lab data revealed BUN and creatinine of 18 and 0.92. Potassium 4.7. IMPRESSION: 1. Severe triple vessel coronary artery disease. 2. Severely impaired left ventricular systolic function. 3. Severe chronic obstructive lung disease. 4. Peripheral vascular disease. RECOMMENDATIONS: I will increase the dose of his ELLEN inhibitor to optimize his blood pressure control. We will await the input of Dr. Lai regarding if he is a candidate for any surgical intervention and depending on that, further recommendation will be made. BAILEY
[2016-04-12 11:34] VITALS: BP 145/70; TEMP 97.2
[2016-04-12 11:58] LABS: Glucose,Whole Blood 186 mg/dL (75-99)
[2016-04-12] MEDS: HEPARIN SODIUM,PORCINE/D5W PMX 25,000 UNIT in DEXTROSE/WATER 1 500ML.BAG IV SCH (14:19)
[2016-04-12] MEDS: SODIUM CHLORIDE 0.9% 1,000 ML IV SCH (14:20)
--- NOTE | 2016-04-12 15:14 | P.PN ---
Subjective 70-year-old male patient who presented to the hospital because of syncopal episode. The patient had a brief syncope associated with some chest pain/chest discomfort. The patient was suspected to have underlying coronary artery disease based on his risk factors. He was taken to [facility] and he was found to have significant triple-vessel disease. A cardiothoracic consultation was requested to evaluate this patient for cardiac bypass surgery. Mother the patient also has history of carotid artery disease and he has undergone a endarterectomy on the left and he has a 70% stenosis of the intercurrent artery on the right. In terms of his breathing, he is able to walk long distances if he goes slow. He is able to climb a flight of stairs without any major difficulties. He uses Symbicort as maintenance in regards to COPD and Proventil /Ventolin rescue inhaler on a when necessary basis. No recent authorization for COPD exacerbation. No recent pneumonias. The patient relates to a previous injury to his neck area as the patient had fallen off the pole and sustained a injury to his face and chin and ultimately underwent a cervical neck surgery for a fall related injury to the neck/fracture. He was told to have some vocal cord dysfunction probably a unilateral vocal cord paralysis however I'm not certain of this. He is currently free of any chest pain. No 69 DVTs or pulmonary embolism. No alcoholism. A baseline poor function test or an FEV1 has not been measured.. His chest x-ray showed no acute cardio pulmonary abnormalities. The CAT scan of the chest shows evidence of mild COPD with evidence of chronic bronchitis, subtle groundglass nodules in the lower lobes bilaterally and a anterior wedging of the T5 spine and old healed fracture deformity of the sternal body. There was no evidence of any pulmonary embolism. On 04/11/2016 the patient is being seen in follow-up. A bedside spirometry was done and the patient was found to have severe obstructive airway limitation with an FEV1 of 26% of predicted. This is consistent with severe COPD which obviously wouldn't carry a high postoperative pulmonary complications rate. This advanced lung disease in addition to possible vocal cord paralysis with add significant mortality risk in this patient. As mentioned earlier he has a impaired LV function in addition and poor targets for revascularization. On 04/12/2016, the patient states in the same. He was placed on bronchodilators and systemic steroids. Nevertheless, he continues to have some chest congestion and wheezing and there is significant limitation air entry and prolongation of respiratory phase of breathing. This is consistent with advanced COPD. The patient was made aware of that he isn't a excuses for developing postoperative complications including those of pulmonary complications and we are unable to medically clear him at this point for cardiac surgery. He had a ENT evaluation and he was not found to have any vocal cord dysfunction or paralysis. He is free of any chest pain at this point. No plans to operate on this patient for now. He wants to go home and I think there is no objections for him to go home and he understands that he is at an increased risk of because of his extensive and diffuse coronary artery disease. Objective - Vital Signs Vital signs: Vital Signs Temp 97.2 F L 04/12/16 11:32 Pulse 75 04/12/16 11:32 Resp 18 04/12/16 11:32 BP 145/70 04/12/16 11:32 Pulse Ox 93 L 04/12/16 11:32 Intake & Output 04/11/16 04/12/16 04/12/16 18:59 06:59 18:59 Intake Total 600 600 976.785 Output Total 600 250 Balance 0 600 726.785 Weight 76.6 kg Intake: IV 100 Intake, IV Titration 500 356.785 Amount Heparin Sodium,Porcine/ 500 356.785 D5w Pmx 25,000 unit In Dextrose/Water 1 500ml. bag @ 12 UNITS/KG/HR 19. 26 mls/hr IV .Q24H [facility] Rx #:[id number] Oral 0 600 620 Output: Urine 600 250 Other: Voiding Method Urinal Urinal # Voids 1 - Exam Head exam was generally normal. There was no scleral icterus or corneal arcus. Mucous membranes were moist.Neck was supple and without jugular venous distension, thyromegaly, or carotid bruits. Carotids were easily palpable bilaterally. There was no adenopathy. Lung sounds are diminished bilaterally and there are some few scattered external wheeze.Cardiac exam revealed the PMI to be normally situated and sized. The rhythm was regular and no extrasystoles were noted during several minutes of auscultation. The first and second heart sounds were normal and physiologic splitting of the second heart sound was noted. There were no murmurs, rubs, clicks, or gallops.Abdominal exam revealed normal bowel sounds. The abdomen was soft, non-tender, and without masses, organomegaly, or appreciable enlargement of the abdominal aorta.Examination of the extremities revealed easily palpable radial, femoral and pedal pulses. There was no cyanosis, clubbing or edema. - Labs CBC & Chem 7: 04/11/16 06:19 04/12/16 06:19 Labs: Abnormal Lab Results - Last 24 Hours (Table) 04/11/16 04/12/16 04/12/16 Range/Units 20:50 06:19 06:22 APTT 84.1 H (22.0-30.0) sec Glucose 182 H (74-99) mg/dL POC Glucose (mg/dL) 141 H (75-99) mg/dL 04/12/16 04/12/16 04/12/16 Range/Units 06:51 11:52 11:56 APTT 63.8 H (22.0-30.0) sec Glucose (74-99) mg/dL POC Glucose (mg/dL) 201 H 186 H (75-99) mg/dL Microbiology - Last 24 Hours (Table) 04/10/16 12:55 Nasal Screen MRSA/MSSA (MAGDA) - Final Nasal Swab 04/10/16 14:00 Urine Culture - Final Urine,Voided Assessment and Plan Plan: Impression 1 multivessel coronary artery disease, status post acute non-ST segment elevation myocardial infarction, awaiting a cardiothoracic surgery evaluation for possible cardiac coronary bypass surgery. Currently is free of any chest pain and he is hemodynamically stable 2 COPD, severe, and based on a spirometer the patient has an FEV1 of 26% of predicted consistent with advanced and severe COPD. 3 carotid artery disease with a 70% stenosis of the right internal carotid artery and a carotid endarterectomy on the left 4 peripheral vascular disease with previous vascular intervention of the legs 5 CHF, impaired LV function with an ejection fraction of 20-25%, the patient has global hypokinesis and is possibly an ischemic cardiac myopathy 6 syncope, likely secondary to ischemic/cardiogenic in nature 7 remote history of smoking quit back in 2004 8 cervical spine injury following a fall and possible injury to vocal cords , unilateral On 04/09/2016, the patient had an upper airway inspection using a flexible laryngoscopy and the findings were essentially negative for any vocal cord paralysis. Plan The patient will be discharged home. We'll suggest continuing DuoNeb nebulized treatments around the clock. He will need a prednisone burst taper. His FEV1 will be rechecked in 1-2 weeks in the office and the patient will be reevaluated and reassessed for potential candidacy for surgery. His current risk is extremely high for any cardiac surgery and the patient will be managed medically with the understanding that he carries a increased risk of due to advanced and diffuse coronary artery disease.
--- NOTE | 2016-04-12 19:51 | DS ---
DATE OF ADMISSION: 04/09/2016 DATE OF DISCHARGE: 04/12/2016 The patient is a 70 -year-old, patient is admitted to the hospital with [id number] myocardial infarction. Patient is found to have organomegaly three-vessel disease. Patient is declining cardiothoracic surgery and the patient wanted to be discharged and patient is cleared for discharge from cardiology perspective. I am doing medication reconciliation as recommended by cardiology. Patient has a depressed ejection fraction which is probably ischemic cardiomyopathy, ejection fraction of 40 to 45%, although patient is euvolemic. Patient is still short of breath. I believe basically because of blockage, three-vessel disease although the patient is declining any kind of intervention as mentioned above. Patient also has moderate mitral valve prolapse and regurgitation. Patient does have history of COPD, not in acute exacerbation at this point of time although the patient is being discharged on weaning dose of steroids cleared by pulmonology as well. Patient was seen and examined on the day of discharge. Vital signs stable. PHYSICAL EXAMINATION: GENERAL: The patient is alert and oriented x3, not in any acute distress. Well developed, well nourished. HEENT: Pupils are round and equally reacting to light. EOMI. No scleral icterus. No conjunctival pallor. Normocephalic, atraumatic. No pharyngeal erythema. No thyromegaly. CARDIOVASCULAR: S1 and S2 present. No murmurs, rubs, or gallops. PULMONARY: Chest is clear to auscultation, no wheezing or crackles. ABDOMEN: Soft, nontender, nondistended, normoactive bowel sounds. No palpable organomegaly. MUSCULOSKELETAL: No joint swelling or deformity. EXTREMITIES: No cyanosis, clubbing, or pedal edema. NEUROLOGICAL: Gross neurological examination did not reveal any focal deficits. SKIN: No rashes. FINAL DIAGNOSIS(ES): 1. [id number] myocardial infarction with 3 vessel disease. Patient is a candidate for coronary artery bypass grafting. The patient is declining coronary artery bypass grafting at this point in time, chronic obstructive pulmonary disease without any acute exacerbation. 2. Congestive heart failure, chronic systolic function, ejection fraction of around 35 to 40% without any acute exacerbation. 3. Peripheral vascular disease. 4. Gastroesophageal reflux. Please refer to my depart summary for further list of discharge medications. Activity as tolerated. Cardiac diet. Patient will follow with Dr. Fer Godoy in 3 to 7 days. Activity as tolerated. Patient will follow with Dr. Lai in one week and cardiology as scheduled. Spent greater than 35 minutes in total discharge process. I will repeat a basic metabolic profile in 3 days as his Lisinopril dose was increased. Patient is also on Aldactone and patient's potassium right now is 4.7.
[2016-04-12] MEDS ORDERED: LISINOPRIL 10 MG TAB PO SCH (21:00)
[2016-04-13] MEDS ORDERED: SPIRONOLACTONE 25 MG TAB PO SCH (09:00)
--- NOTE | 2016-04-17 10:49 | P.ARTDOP ---
Arterial Doppler LOWER EXTREMITY ARTERIAL DOPPLER: DATE OF SERVICE: 04/10/2016 Reason for study: Pre-CABG. Doppler waveforms: Multiphasic bilaterally throughout. Pulse volume recording: Mild distal blunting. Pressure gradients: Above the ankle bilaterally. Ankle-brachial indices: 0.66 on the right 0.60 on the left. Toe pressures: 67 on the right, 40 on the left Impression: Suspect moderate bilateral femoral popliteal disease. Perfusion probably adequate for healing.
--- NOTE | 2016-04-17 10:51 | P.VSCSTY ---
Greater Saphenous Vein Mapping This is bilateral lower extremity greater saphenous vein mapping. Date of service 04/10/2016 Vein quality and ultrasound appearance normal. Vein size groin right 6.1 x 6.6 groin left 6.1 x 6.2 High thigh right 3.9 x 4.5 high thigh left 5.2 x 4.1 Mid thigh right 4.3 x 3.5 mid thigh left 4.8 x 4.6 Above-knee right 3.9 x 3.8 above- knee left 4.1 x 4.5 Below knee right 3.9 x 3.4 below-knee left 3.4 x 2.7 Mid calf right 3.4 x 2.3 mid calf left 2.4 x 2.4 Ankle right 3.2 x 2.3 ankle left 2.5 x 2.0 Impression usable bilateral greater saphenous vein.
== END 2016-04-12 15:56 | disposition home or self-care (01) ==
LOC: EC 10:02 → 3OBS 13:49 → 6SEL 22:36
PROVIDERS: ADMIT Hospitalist; ATTEND Hospitalist
DX: I21.4 Non-ST elevation (NSTEMI) myocardial infarction (principal); I25.10 Atherosclerotic heart disease of native coronary artery without angina pectoris; I25.84 Coronary atherosclerosis due to calcified coronary lesion; I48.91 Unspecified atrial fibrillation; E78.5 Hyperlipidemia, unspecified; I25.5 Ischemic cardiomyopathy; I34.0 Nonrheumatic mitral (valve) insufficiency; I34.1 Nonrheumatic mitral (valve) prolapse; I50.22 Chronic systolic (congestive) heart failure; I65.23 Occlusion and stenosis of bilateral carotid arteries; I73.9 Peripheral vascular disease, unspecified; J34.2 Deviated nasal septum; J44.1 Chronic obstructive pulmonary disease with (acute) exacerbation; K21.9 Gastro-esophageal reflux disease without esophagitis; M48.54XA Collapsed vertebra, not elsewhere classified, thoracic region, initial encounter for fracture; Z77.090 Contact with and (suspected) exposure to asbestos; Z79.82 Long term (current) use of aspirin; Z87.891 Personal history of nicotine dependence; R55 Syncope and collapse; R11.2 Nausea with vomiting, unspecified; Z79.51 Long term (current) use of inhaled steroids; Z79.899 Other long term (current) drug therapy; M19.90 Unspecified osteoarthritis, unspecified site
CPT/HCPCS: 36415; 94640 ×5; 94150; 93005; 93312; 93320; 93306; 93325; 93458; 85379; 83880; 80061; 80053; 80048 ×2; 80074; 84443; 82150; 83036; 82550; 82553; 83690; 83735; 84484; 85025 ×2; 85610; 85730 ×4; 81003; 87070; 87086; 71020; 93970; 93922; 93880; 71275; 31575; 99291; 96376; G0378 ×5; C1894; C1769; J2001; J2250; J1200; J1644 ×5; J2930 ×2; Q9967 ×2; J3010 ×2; Q9957

== ENCOUNTER 2016-05-21 13:38 | Day surgery (SDC) | payer MEDICARE, OTHER ==
[2016-05-20 09:43] VITALS: BMI 27.7
[~2016-05-21 13:38] MED LIST: LACTATED RINGERS 1,000 ML IV SCH; LIDOCAINE 1% 20 ML VIAL (10MG/ML) FOR IV START INTRADERMA PRN
[2016-05-21 13:51] VITALS: TEMP 97.8
[2016-05-21] MEDS ORDERED: LIDOCAINE 1% 20 ML VIAL (10MG/ML) FOR IV START INTRADERMA ONE (14:03)
[2016-05-21] MEDS ORDERED: PROPOFOL 10 MG/ML 20 ML VIAL IV ONE (14:46)
[2016-05-21] MEDS ORDERED: LIDOCAINE 1% INJ 10MG/ML (20 ML MDV) ONE (14:46)
[2016-05-21] MEDS ORDERED: IV FLUID CONTINUATION 1,000 ML IV ONE (15:33)
[2016-05-21 15:46] VITALS: RESP 16
--- NOTE | 2016-05-21 15:49 | P.PCN ---
Date of Procedure: 05/21/16 Procedure(s) Performed: Procedure: Colonoscopy and polypectomy. Preoperative diagnosis: Rectal bleeding. Postoperative diagnosis: 1. Three polyps snared but no large polyps or cancer. 2. Internal hemorrhoids not bleeding at the time of this exam likely cause of intermittent rectal bleeding. Preparation HalfLytely prep. Sedation was provided by anesthesia. Brief clinical history: The patient is a 70-year-old male who is referred for this evaluation for intermittent rectal bleeding. There is no change in bowel habits, abdominal pains or anemia. No family history of colon cancer. This would be his first colonoscopy. Procedure: With the patient on his left lateral decubitus position and after informed consent and adequate sedation, the perianal area was inspected and it did not show any fissures or fistulas. There were no masses felt on digital rectal examination. The Olympus CFQ 160L video colonoscope was then inserted in the rectum in the usual fashion and advanced to the cecum. There was two polyps one around the hepatic flexure and one in the sigmoid at 30 cm from the anal verge that was snared and retrieved by suction and there was a smaller polyp in the distal sigmoid that was fulgurated with the snare but there were no large polyps or cancer. The mucosa appeared healthy. There was no obvious diverticular disease. I the retroflexed endoscope in the rectum before the endoscope was withdrawn. I noted grade 2 internal hemorrhoids that were not bleeding. The patient tolerated the procedure well. Plan: The patient was reassured. Discussed dietary measures and local care for hemorrhoids. With the finding of polyps, I recommended a repeat exam in 5 years.
[2016-05-21 16:13] VITALS: BP 134/76; PULSE 81
== END 2016-05-21 16:40 | disposition home or self-care (01) ==
LOC: ORWHC2ENDO 13:38
DX: D12.3 Benign neoplasm of transverse colon (principal); D12.5 Benign neoplasm of sigmoid colon; K63.5 Polyp of colon; K64.1 Second degree hemorrhoids; K62.5 Hemorrhage of anus and rectum; I25.10 Atherosclerotic heart disease of native coronary artery without angina pectoris; K21.9 Gastro-esophageal reflux disease without esophagitis; I25.2 Old myocardial infarction; I10 Essential (primary) hypertension; E78.5 Hyperlipidemia, unspecified; J44.9 Chronic obstructive pulmonary disease, unspecified; J45.909 Unspecified asthma, uncomplicated; Z79.82 Long term (current) use of aspirin; Z79.51 Long term (current) use of inhaled steroids; Z79.899 Other long term (current) drug therapy; Z87.891 Personal history of nicotine dependence
CPT/HCPCS: 88305; 45385; J2001; J2704

== ENCOUNTER 2016-09-06 07:30 | Observation (INO) | payer MEDICARE, OTHER ==
[2016-09-06] MEDS ORDERED: SODIUM CHLORIDE 0.9% 1,000 ML IV STA ×2 (07:31)
[2016-09-06 08:03] LABS: Basophils % (A) 0 %; CH 32.5; CHCM 34.8; Eosinophils # (A) 0.8 k/uL (0-0.7); Eosinophils % (A) 7 %; HCT 38.7 % (39.0-53.0); HDW 2.93; HGB 13.3 gm/dL (13.0-17.5); Luc # (Auto) 0.35; Luc % (Auto) 4; Lymphocytes # (A) 1.4 k/uL (1.0-4.8); Lymphocytes % (A) 14 %; MCH 32.3 pg (25.0-35.0); MCHC 34.4 g/dL (31.0-37.0); Monocytes # (A) 0.7 k/uL (0-1.0); Monocytes % (A) 7 %; Neutrophils % (A) 68 %; RBC 4.11 m/uL (4.30-5.90); RDW 15.4 % (11.5-15.5); WBC 10.3 k/uL (3.8-10.6); WBC (Perox) 10.45
[2016-09-06 08:15] LABS: INR 0.9 (<1.2); Partial Thromboplastin Time 24.3 sec (22.0-30.0); Prothrombin Time 9.5 sec (9.0-12.0)
[2016-09-06 08:16] LABS: ALT 38 U/L (21-72); AST 24 U/L (17-59); Alkaline Phosphatase 62 U/L (38-126); Anion Gap 7 mmol/L; Blood Urea Nitrogen 20 mg/dL (9-20); Calcium 8.1 mg/dL (8.4-10.2); Carbon Dioxide 23 mmol/L (22-30); Chloride 110 mmol/L (98-107); Glucose 97 mg/dL (74-99); Magnesium 2.1 mg/dL (1.6-2.3); Non-African American GFR(MDRD) >60 (>60 ml/min/1.73 sqM); Phosphorous 2.7 mg/dL (2.5-4.5); Potassium 4.3 mmol/L (3.5-5.1); Sodium 140 mmol/L (137-145); Total Bilirubin 0.5 mg/dL (0.2-1.3); Total Protein 5.7 g/dL (6.3-8.2)
--- NOTE | 2016-09-06 08:23 | XR ---
EXAMINATION TYPE: XR chest 2V DATE OF EXAM: 09/06/2016 COMPARISON: 04/09/2016 INDICATION: Weakness TECHNIQUE: Frontal and lateral views of the chest are obtained. FINDINGS: The heart size is normal. The pulmonary vasculature is normal. There is an infiltrate within the lingula silhouetting the cardiac border. IMPRESSION: 1. Lingular infiltrate. Correlate for atelectasis or pneumonia.
[2016-09-06 08:40] LABS: Creatine Kinase MB 2.3 ng/mL (0.0-2.4); Troponin I 0.014 ng/mL (0.000-0.034)
[2016-09-06] MEDS ORDERED: MORPHINE SULFATE 2 MG/ML SYRINGE IVP ONE (08:46)
--- NOTE | 2016-09-06 08:46 | ED ---
General Adult HPI - General Chief complaint: Dizziness Stated complaint: dizziness Time Seen by Provider: 09/06/16 07:31 Source: patient, EMS, RN notes reviewed, old records reviewed Mode of arrival: EMS Limitations: no limitations - History of Present Illness Initial comments: This is a 70-year-old male ER for evaluation. Patient's brought in for definitive fever or mental status, sterns rough cough congestion and chest pain. Patient also had an episode of altered mental status, slurred speech and inappropriate word finding. Patient has significant history of heart disease, is scheduled for coronary artery bypass grafting. Patient denies any recent fevers taking all medications as prescribed, - Related Data Home Medications Medication Instructions Recorded Confirmed Albuterol Nebulized [Ventolin 2.5 mg INHALATION RT-BID PRN 04/09/16 09/06/16 Nebulized] Albuterol Sulfate [Proventil Hfa] 2 puff INHALATION RT-QID PRN 04/09/16 09/06/16 Aspirin 325 mg PO DAILY 04/09/16 09/06/16 Budesonide/Formoterol Fumarate 2 puff INHALATION RT-BID 04/09/16 09/06/16 [Symbicort 80-4.5 Mcg Inhaler] Nitroglycerin Sl Tabs [Nitrostat] 0.4 mg SUBLINGUAL Q5M PRN 04/09/16 09/06/16 Omeprazole [PriLOSEC] 20 mg PO AC-BID 04/09/16 09/06/16 Tiotropium 18 Mcg/Puff [Spiriva] 2 puff INHALATION RT-DAILY 05/20/16 09/06/16 Acetaminophen [Tylenol] 1,000 mg PO HS PRN 09/06/16 09/06/16 Previous Rx's Medication Instructions Recorded Atorvastatin [Lipitor] 80 mg PO DAILY #30 tab 04/12/16 Lisinopril [Zestril] 10 mg PO BID #30 tab 04/12/16 Metoprolol Tartrate [Lopressor] 25 mg PO BID #30 tab 04/12/16 Spironolactone [Aldactone] 25 mg PO DAILY #30 tab 04/12/16 Allergies Allergy/AdvReac Type Severity Reaction Status Date / Time CONTRAST DYE Allergy Itching Uncoded 09/06/16 09:17 Review of Systems ROS Statement: Those systems with pertinent positive or pertinent negative responses have been documented in the HPI. ROS Other: All systems not noted in ROS Statement are negative. Past Medical History Past Medical History: Coronary Artery Disease (CAD), COPD, GERD/Reflux, Myocardial Infarction ([place]), Osteoarthritis (OA) Additional Past Medical History / Comment(s): COPD, osteoarthritis, multivessel coronary artery disease as mentioned above, history of sternal fracture secondary to fall, history of neck injury secondary to fall and there is a vague history of a vocal cords injury/paralysis at a time of the fall that occurred approximately 14 years ago. Last Myocardial Infarction Date:: 03/2016 History of Any Multi-Drug Resistant Organisms: None Reported Past Surgical History: Orthopedic Surgery, Tonsillectomy Additional Past Surgical History / Comment(s): Vasectomy, left knee surgery/ arthroscopy, facial surgery for a broken nose, neck surgery following a fall injury from a telephone pole and it's likely the patient had stabilization of his cervical spine, left carotid endarterectomy, peripheral vascular disease with insertion of vascular stents in lower extremities, hands surgery for a broken wrist, cholecystectomy Past Anesthesia/Blood Transfusion Reactions: Previous Problems w/ Anesthesia Additional Past Anesthesia/Blood Transfusion Reaction / Comment(s): WOKE UP DURING WRIST SX, MILD CLAUSTERPHOBIA Past Psychological History: No Psychological Hx Reported Smoking Status: Former smoker - Past Family History Father Family Medical History: Cancer Additional Family Medical History / Comment(s): STOMACH CANCER Mother Additional Family Medical History / Comment(s): POLIO Brother(s) Family Medical History: Myocardial Infarction ([place]) General Exam - General Exam Comments Initial Comments: NIH of 0 Limitations: no limitations General appearance: alert, in no apparent distress Head exam: Present: atraumatic, normocephalic, normal inspection Eye exam: Present: normal appearance, PERRL, EOMI. Absent: scleral icterus, conjunctival injection, periorbital swelling ENT exam: Present: normal exam, mucous membranes moist Neck exam: Present: normal inspection. Absent: tenderness, meningismus, lymphadenopathy Respiratory exam: Present: normal lung sounds bilaterally. Absent: respiratory distress, wheezes, rales, rhonchi, stridor Cardiovascular Exam: Present: regular rate, normal rhythm, normal heart sounds. Absent: systolic murmur, diastolic murmur, rubs, gallop, clicks GI/Abdominal exam: Present: soft, normal bowel sounds. Absent: distended, tenderness, guarding, rebound, rigid Extremities exam: Present: normal inspection, full ROM, normal capillary refill. Absent: tenderness, pedal edema, joint swelling, calf tenderness Back exam: Present: normal inspection Neurological exam: Present: alert, oriented X3, CN II-XII intact Psychiatric exam: Present: normal affect, normal mood Skin exam: Present: warm, dry, intact, normal color. Absent: rash Course Vital Signs 09/06/16 09/06/16 09/06/16 07:44 08:45 09:38 Temperature 98.1 F Pulse Rate 84 80 71 Respiratory 18 18 18 Rate Blood Pressure 152/66 130/62 132/62 O2 Sat by Pulse 98 96 98 Oximetry 09/06/16 10:40 Temperature Pulse Rate 72 Respiratory 18 Rate Blood Pressure 150/69 O2 Sat by Pulse 95 Oximetry - Reevaluation(s) Reevaluation #1: 09/06/16 09:48 The patient feeling better with breathing treatments, remains without neurological complaints, family states is speech seems better EKG Findings - EKG Comments: EKG Findings:: EKG shows normal sinus a rate of 70, UT 152, QRS I4, QTC 429 Medical Decision Making - Medical Decision Making [place] the ER for evaluation of TIA symptoms, altered mental status involving slurred speech and word finding. Patient has mild chest pain, cough and congestion. [facility] to [place], also under cardiac surgery, consultation. Neurological evaluation - Lab Data Result diagrams: 09/06/16 07:42 09/06/16 07:42 Lab Results 09/06/16 09/06/16 09/06/16 Range/Units 07:42 07:42 07:42 WBC 10.3 (3.8-10.6) k/uL RBC 4.11 L (4.30-5.90) m/uL Hgb 13.3 (13.0-17.5) gm/dL Hct 38.7 L (39.0-53.0) % MCV 94.0 (80.0-100.0) fL MCH 32.3 (25.0-35.0) pg MCHC 34.4 (31.0-37.0) g/dL RDW 15.4 (11.5-15.5) % Plt Count 181 (150-450) k/uL Neutrophils % 68 % Lymphocytes % 14 % Monocytes % 7 % Eosinophils % 7 % Basophils % 0 % Neutrophils # 7.0 (1.3-7.7) k/uL Lymphocytes # 1.4 (1.0-4.8) k/uL Monocytes # 0.7 (0-1.0) k/uL Eosinophils # 0.8 H (0-0.7) k/uL Basophils # 0.0 (0-0.2) k/uL PT (9.0-12.0) sec INR (<1.2) APTT (22.0-30.0) sec Sodium 140 (137-145) mmol/L Potassium 4.3 (3.5-5.1) mmol/L Chloride 110 H (98-107) mmol/L Carbon Dioxide 23 (22-30) mmol/L Anion Gap 7 mmol/L BUN 20 (9-20) mg/dL Creatinine 0.91 (0.66-1.25) mg/dL Est GFR (MDRD) Af Amer >60 (>60 ml/min/1.73 sqM) Est GFR (MDRD) Non-Af >60 (>60 ml/min/1.73 sqM) Glucose 97 (74-99) mg/dL Calcium 8.1 L (8.4-10.2) mg/dL Phosphorus 2.7 (2.5-4.5) mg/dL Magnesium 2.1 (1.6-2.3) mg/dL Total Bilirubin 0.5 (0.2-1.3) mg/dL AST 24 (17-59) U/L ALT 38 (21-72) U/L Alkaline Phosphatase 62 (38-126) U/L Total Creatine Kinase 51 L (55-170) U/L CK-MB (CK-2) 2.3 (0.0-2.4) ng/mL CK-MB (CK-2) Rel Index 4.5 Troponin I 0.014 (0.000-0.034) ng/mL Total Protein 5.7 L (6.3-8.2) g/dL Albumin 3.3 L (3.5-5.0) g/dL Urine Color Urine Appearance (Clear) Urine pH (5.0-8.0) Ur Specific Dwight (1.001-1.035) Urine Protein (Negative) Urine Glucose (UA) (Negative) Urine Ketones (Negative) Urine Blood (Negative) Urine Nitrite (Negative) Urine Bilirubin (Negative) Urine Urobilinogen (<2.0) mg/dL Ur Leukocyte Esterase (Negative) 09/06/16 09/06/16 Range/Units 07:42 10:32 WBC (3.8-10.6) k/uL RBC (4.30-5.90) m/uL Hgb (13.0-17.5) gm/dL Hct (39.0-53.0) % MCV (80.0-100.0) fL MCH (25.0-35.0) pg MCHC (31.0-37.0) g/dL RDW (11.5-15.5) % Plt Count (150-450) k/uL Neutrophils % % Lymphocytes % % Monocytes % % Eosinophils % % Basophils % % Neutrophils # (1.3-7.7) k/uL Lymphocytes # (1.0-4.8) k/uL Monocytes # (0-1.0) k/uL Eosinophils # (0-0.7) k/uL Basophils # (0-0.2) k/uL PT 9.5 (9.0-12.0) sec INR 0.9 (<1.2) APTT 24.3 (22.0-30.0) sec Sodium (137-145) mmol/L Potassium (3.5-5.1) mmol/L Chloride (98-107) mmol/L Carbon Dioxide (22-30) mmol/L Anion Gap mmol/L BUN (9-20) mg/dL Creatinine (0.66-1.25) mg/dL Est GFR (MDRD) Af Amer (>60 ml/min/1.73 sqM) Est GFR (MDRD) Non-Af (>60 ml/min/1.73 sqM) Glucose (74-99) mg/dL Calcium (8.4-10.2) mg/dL Phosphorus (2.5-4.5) mg/dL Magnesium (1.6-2.3) mg/dL Total Bilirubin (0.2-1.3) mg/dL AST (17-59) U/L ALT (21-72) U/L Alkaline Phosphatase (38-126) U/L Total Creatine Kinase (55-170) U/L CK-MB (CK-2) (0.0-2.4) ng/mL CK-MB (CK-2) Rel Index Troponin I (0.000-0.034) ng/mL Total Protein (6.3-8.2) g/dL Albumin (3.5-5.0) g/dL Urine Color Light Yellow Urine Appearance Clear (Clear) Urine pH 5.5 (5.0-8.0) Ur Specific Dwight 1.009 (1.001-1.035) Urine Protein Negative (Negative) Urine Glucose (UA) Negative (Negative) Urine Ketones Negative (Negative) Urine Blood Negative (Negative) Urine Nitrite Negative (Negative) Urine Bilirubin Negative (Negative) Urine Urobilinogen <2.0 (<2.0) mg/dL Ur Leukocyte Esterase Negative (Negative) - Radiology Data Radiology results: report reviewed (Chest x-ray shows no acute disease), image reviewed Disposition Clinical Impression: Chest pain, COPD (chronic obstructive pulmonary disease), TIA (transient ischemic attack) Disposition: ADMITTED IP TO THIS HOSP Condition: Fair Referrals: Fer Godoy DO [Primary Care Provider] - 1-2 days
--- NOTE | 2016-09-06 10:40 | CT ---
EXAMINATION TYPE: CT brain wo con DATE OF EXAM: 09/06/2016 COMPARISON: NONE HISTORY: Dizziness CT DLP: 1318.[address] of the brain was performed. The ventricles, basal cisterns and sulci overlying the cerebral convexities demonstrate mild enlargem ent. There is no evidence for intracranial hemorrhage or sulcal effacement. There is decreased attenuation about the periventricular white matter and deep white matter of both c erebral hemispheres, compatible with chronic small vessel ischemia. Differential diagnosis does inclu de demyelination. No mass effects are seen.No midline shift. Osseous calvarium is intact. If symptoms persist consider MRI. IMPRESSION: 1. Age related atrophic and chronic small vessel ischemic change without acute intracranial process s een at this time.
[2016-09-06 10:44] LABS: Appearance,Urine Clear (Clear); Bilirubin,Urine Negative (Negative); Glucose,Urine (UA) Negative (Negative); Ketones,Urine Negative (Negative); Leukocyte Esterase,Urine Negative (Negative); Nitrite,Urine Negative (Negative); PH, Urine 5.5 (5.0-8.0); Protein,Urine Negative (Negative); Specific Gravity,Urine 1.009 (1.001-1.035); UA Billing (MACRO vs. MICRO) CHEM; Urobilinogen,Urine <2.0 mg/dL (<2.0)
[2016-09-06] MEDS ORDERED: ASPIRIN 81 MG CHEW PO STA (11:12)
[2016-09-06] MEDS ORDERED: NITROGLYCERIN SL TABS 0.4 MG TAB SUBLINGUAL PRN ×2 (11:12→14:37)
[2016-09-06] MEDS ORDERED: IPRATROPIUM-ALBUTEROL 3 ML NEB INHALATION STA (11:59)
[2016-09-06] MEDS ORDERED: LEVOFLOXACIN 750MG-D5W PMX 750 MG in DEXTROSE/WATER 1 150ML.BAG IVPB STA (11:59)
[2016-09-06] MEDS: SODIUM CHLORIDE 0.9% 1,000 ML IV SCH ×2 (12:30→20:14)
[2016-09-06 12:51] VITALS: BMI 26.6
--- NOTE | 2016-09-06 14:20 | CONS ---
CHIEF COMPLAINT: Chest pain. David is a 70-year-old gentleman with history of multivessel coronary artery disease, valvular heart disease who follows with [facility] and was to undergo bypass surgery with valve repair at [facility] comes in complaining of cough, congestion and mild slurred speech. At the time of my evaluation, he appears comfortable at rest. Does not have any altered sensorium. Does not have slurred speech. He is complaining of cough. He also complains of vague precordial chest pain. Past medical history is significant for multivessel coronary artery disease, COPD, hypertension. Medications include Aldactone 25 q. daily, metoprolol 25 b.i.d., lisinopril 10 b.i.d., Lipitor 80 q. daily, aspirin, Ventolin, Symbicort and Prilosec. Family history is negative for premature coronary artery disease. Social history is negative for smoking, EtOH abuse or drug abuse. REVIEW OF SYSTEMS: HEENT: Significant for slurred speech. CARDIAC: As described above. RESPIRATORY: As described above. GI: Negative. GENITOURINARY: Negative. PSYCHOSOCIAL: Negative. ENDOCRINE: Negative. HEMATOLOGICAL: Negative. DERM: Negative. CONSTITUTIONAL: Negative. ONCOLOGICAL; Negative. The rest of the system review is not relevant. On exam, afebrile. Heart rate is 75 beats per minute. Blood pressure is 140/ 64. Respiratory rate is 18. O2 sat is 96%. There is no jugular venous distention. Chest exam reveals occasional rhonchi with diminished air entry. Heart exam reveals first and second heart sounds.Systolic murmur at the left lower sternal border. Abdomen is soft. Examination of the extremities reveals trace edema. Peripheral pulses are palpable. Labs show that the troponin is 0.014. Creatinine is 0.9. Potassium is 4.3 Hemoglobin is 13.3. Carotid duplex was done, results are pending. Brain CT is negative. EKG shows sinus rhythm with nonspecific ST-T wave changes. Chest x- ray shows lingual infiltrate. ASSESSMENT: 1. Cough and possible pneumonia. 2. Three-vessel coronary artery disease, awaiting bypass surgery. 3. History of mitral regurgitation. PLAN: I will treat the patient with optimal medical therapy including aspirin, Aldactone, Zestril, metoprolol, Lipitor. Will obtain serial CPKs to rule out myocardial infarction. Will review the echocardiogram once the results are available. Once patient is better, he should be transferred to [facility]. If necessary, transfer the patient from hospital to hospital. BAILEY
--- NOTE | 2016-09-06 14:28 | US ---
EXAMINATION TYPE: US carotid duplex BILAT DATE OF EXAM: 09/06/2016 COMPARISON: NONE CLINICAL HISTORY: Stenosis. EXAM MEASUREMENTS: RIGHT: Peak Systolic Velocity (PSV) cm/sec ----- Right CCA: 87.1 ----- Right ICA: 271.2 ----- Right ECA: 238.9 ICA/CCA ratio: 3.1 RIGHT: End Diastole cm/sec ----- Right CCA: 20.2 ----- Right ICA: 81.1 ----- Right ECA: 19.1 LEFT: Peak Systolic Velocity (PSV) cm/sec ----- Left CCA: 116.0 ----- Left ICA: 206.5 ----- Left ECA: 185.6 ICA/CCA ratio: 1.8 LEFT: End Diastole cm/sec ----- Left CCA: 29.4 ----- Left ICA: 60.2 ----- Left ECA: 27.6 VERTEBRALS (direction of flow): Right Vertebral: Antegrade Left Vertebral: Antegrade Bilateral torturous vessels moderate plaque visualized. IMPRESSION: 1. Bilateral moderate plaque with findings suggestive of a 50-69% stenosis involving the proximal rig ht internal carotid artery. Correlate with CT of the neck is clinically warranted.
[2016-09-06] MEDS ORDERED: IPRATROPIUM-ALBUTEROL 3 ML NEB INHALATION PRN (14:36)
--- NOTE | 2016-09-06 14:49 | P.HPIM ---
History of Present Illness H&P Date: 09/06/16 Chief Complaint: Lightheadedness and dizziness Mr. Lewis is a 70-year-old male with a known history of hypertension, significant coronary artery disease refuses bypass graft in March 2016, valvular of heart disease, CHF with ejection fraction 35-30%, peripheral vascular disease-carotid endarterectomy and COPD was brought to the hospital with complaints of lightheadedness when he was throwing up. Apparently patient has been having choking pain in the neck for the past 3 or 4 days on and off and a feeling of dizziness. Today patient felt more lightheaded and was throwing up. EMS was called and found found have also mental status and slurred speech and difficulty in word finding. Otherwise patient does have a history of COPD and is on inhalers including Symbicort at home. Patient denied any history of prior stroke. Patient was found have significant heart disease and is scheduled for coronary artery bypass grafting. Denied any nausea at this time. No abdominal pain no diarrhea. No recent illnesses. No recent travel. Review of Systems Constitutional: Patient denies any fever or chills . No generalized weakness or weight loss. Abdomen: Patient patient does have nausea and 1 episode of vomiting. No diarrhea and abdominal pain. Cardiovascular: Patient denies any chest pain or short of breath no palpitations. Respiratory: patient denied any cough is from production. No shortness of breath Neurologic: Patient denied any numbness . Patient does have dizziness and lightheadedness. Musculoskeletal: Patient denies any complaints of joint swelling or deformity. Skin: Patient does have left wrist skin wound. Psychiatric: Negative Endocrine: No heat or cold intolerance. No recent weight gain. Genitourinary: No dysuria or hematuria. All other 14 point ROS negative except the above Past Medical History Past Medical History: Coronary Artery Disease (CAD), COPD, GERD/Reflux, Myocardial Infarction ([place]), Osteoarthritis ([place]) Additional Past Medical History / Comment(s): COPD, osteoarthritis, multivessel coronary artery disease as mentioned above, history of sternal fracture secondary to fall, history of neck injury secondary to fall and there is a vague history of a vocal cords injury/paralysis at a time of the fall that occurred approximately 14 years ago. Last Myocardial Infarction Date:: 03/2016 History of Any Multi-Drug Resistant Organisms: None Reported Past Surgical History: Orthopedic Surgery, Tonsillectomy Additional Past Surgical History / Comment(s): Vasectomy, left knee surgery/ arthroscopy, facial surgery for a broken nose, neck surgery following a fall injury from a telephone pole and it's likely the patient had stabilization of his cervical spine, left carotid endarterectomy, peripheral vascular disease with insertion of vascular stents in lower extremities, hands surgery for a broken wrist, cholecystectomy Past Anesthesia/Blood Transfusion Reactions: Previous Problems w/ Anesthesia Additional Past Anesthesia/Blood Transfusion Reaction / Comment(s): WOKE UP DURING WRIST SX, MILD CLAUSTERPHOBIA Past Psychological History: No Psychological Hx Reported Additional Psychological History / Comment(s): PT LIVES AT HOME WITH HIS AND 1 ADULT SON. 1 INDOOR DOG. PT SERVED IN THE [employer]. BEFORE RETIRING PT HAD BEEN WORKING FOR [employer]. PT IS INDEPENDANT.NO OUTSIDE SERVICES. Smoking Status: Former smoker Past Alcohol Use History: None Reported Additional Past Alcohol Use History / Comment(s): STARTED SMOKING WHEN I WAS 8, QUIT 2004, WAS SMOKING 2-3 PPD Past Drug Use History: None Reported - Past Family History Father Family Medical History: Cancer Additional Family Medical History / Comment(s): STOMACH CANCER Mother Additional Family Medical History / Comment(s): POLIO Brother(s) Family Medical History: Myocardial Infarction ([place]) Medications and Allergies Home Medications Medication Instructions Recorded Confirmed Type Albuterol Nebulized [Ventolin 2.5 mg INHALATION RT-BID PRN 04/09/16 09/06/16 History Nebulized] Albuterol Sulfate [Proventil Hfa] 2 puff INHALATION RT-QID PRN 04/09/16 History Aspirin 325 mg PO DAILY 04/09/16 09/06/16 History Budesonide/Formoterol Fumarate 2 puff INHALATION RT-BID 04/09/16 09/06/16 History [Symbicort 80-4.5 Mcg Inhaler] Nitroglycerin Sl Tabs [Nitrostat] 0.4 mg SUBLINGUAL Q5M PRN 04/09/16 09/06/16 History Omeprazole [PriLOSEC] 20 mg PO AC-BID 04/09/16 09/06/16 History Tiotropium 18 Mcg/Puff [Spiriva] 2 puff INHALATION RT-DAILY 05/20/16 09/06/16 History Acetaminophen [Tylenol] 1,000 mg PO HS PRN 09/06/16 09/06/16 History Allergies Allergy/AdvReac Type Severity Reaction Status Date / Time CONTRAST DYE Allergy Itching Uncoded 09/06/16 09:17 Physical Exam Vitals: Vital Signs Temp Pulse Resp BP Pulse Ox 09/06/16 12:32 97.6 F 09/06/16 11:45 75 16 148/65 96 09/06/16 10:40 72 18 150/69 95 09/06/16 09:38 71 18 132/62 98 09/06/16 08:45 80 18 130/62 96 09/06/16 07:44 98.1 F 84 18 152/66 98 Intake and Output 09/05/16 09/06/16 09/06/16 22:59 06:59 14:59 Output Total 300 Balance -300 Output: Urine 300 Other: Weight 81.647 kg Patient Weight 09/07/16 06:59 Weight 81.647 kg PHYSICAL EXAMINATION: Patient is lying in the bed comfortably, no acute distress, awake alert and oriented.. HEENT: Normocephalic. Neck is supple. Pupils reactive. Nostrils clear. Oral cavity is moist. Ears reveal no drainage. Neck reveals no JVD, carotid bruits, or thyromegaly. CHEST EXAMINATION: Trachea is central. Symmetrical expansion. Lung dunbar clear to auscultation and percussion. Minimal expiratory wheezing CARDIAC: Normal S1, S2 with no gallops. No murmurs ABDOMEN: Soft. Bowel sounds normal. No organomegaly. No abdominal bruits. Extremities: reveal no edema. No clubbing or cyanosis Neurologically awake, alert, oriented x3 with well-coordinated movements. No focal deficits noted Skin: No rash or skin lesions. Psychiatric: Operative. Nonsuicidal Musculoskeletal: No joint swelling or deformity. Normal range of motion. Results CBC & Chem 7: 09/06/16 07:42 09/06/16 07:42 Labs: Abnormal Lab Results - Last 24 Hours (Table) 09/06/16 09/06/16 09/06/16 Range/Units 07:42 07:42 07:42 RBC 4.11 L (4.30-5.90) m/uL Hct 38.7 L (39.0-53.0) % Eosinophils # 0.8 H (0-0.7) k/uL Chloride 110 H (98-107) mmol/L Calcium 8.1 L (8.4-10.2) mg/dL Total Creatine Kinase 51 L (55-170) U/L Total Protein 5.7 L (6.3-8.2) g/dL Albumin 3.3 L (3.5-5.0) g/dL Thrombosis Risk Factor Assmnt - DVT/VTE Prophylaxis DVT/VTE Prophylaxis: Pharmacologic Prophylaxis ordered - Choose All That Apply Each Factor Represents 1 point: Abnormal pulmonary function (COPD), Obesity ( BMI >25) Each Risk Factor Represents 2 Points: Age 61-74 years Thrombosis Risk Factor Assessment Total Risk Factor Score: 4 Thrombosis Risk Factor Assessment Level: Moderate Risk Assessment and Plan Plan: Pneumonia with lingular infiltrate Dizziness and lightheadedness and slurred speech at home resolved now. possible TIA Triple-vessel coronary artery disease. Patient is being worked up at [facility]. Peripheral artery disease with history of carotid endarterectomy COPD not in exacerbation Chronic CHF with ejection fraction 35-40%. Systolic dysfunction GERD History of an STEMI in March 2016 DVT prophylaxis Patient be continued on telemetry monitoring and serial EKGs intrabursal be done today because I did. Continue the home medications of Aldactone and metoprolol and lisinopril. Slurred speech is completely resolved now. Cardiology recommended medical management since the patient refused surgery here and is on follow at [facility]. We will continue the home medications. Possible transfer to [facility]. We'll can the current management and further recommendations based on the clinical course. Time with Patient: Greater than 30
[2016-09-06 14:54] LABS: Creatine Kinase 51 U/L (55-170)
[2016-09-06 15:01] LABS: Creatine Kinase MB 2.3 ng/mL (0.0-2.4); Troponin I <0.012 ng/mL (0.000-0.034)
[2016-09-06] MEDS: HEPARIN SODIUM,PORCINE 5,000 UNIT/ML 1 ML VIAL SQ SCH (17:17)
--- NOTE | 2016-09-06 19:50 | P.CNNES ---
History of Present Illness Consult date: 09/06/16 Reason for Consult: Patient being evaluated for possible TIA. History of Present Illness: This patient is a 70-year-old right-handed white male was brought into the emergency room with complaints of lightheadedness and nausea vomiting symptoms. According to his for the last 4 days he has been having symptoms of dizziness as well as nausea vomiting. Prior to his admission to the hospital he was also complaining of slurring of his speech. Patient has a history of valvular heart disease and was scheduled to undergo a bypass graft at the [facility] within the next week. Apparently he was found out on admission to have evidence of pneumonia and his heart surgery has been placed on hold at this time. The patient states he has severe heart disease. He has been followed at the [facility] for this condition. He is also a history of multiple coronary symptoms including coronary artery disease with the anticipated two-vessel coronary artery grafting to be done at the [facility]. He also has a history of having had a left carotid endarterectomy. This was done a few years ago at the [facility] in [place]. Patient states that his speech has improved since coming into the hospital. He still has some difficulty with his speech which his states is his normal speech. He was sent for a computed tomography scan of the brain today which reveals age-related atrophy and chronic small vessel ischemic change. He underwent a carotid Doppler study which reveals 50- 69% stenosis on the right ICA. As noted he has undergone left carotid endarterectomy a few years ago. Patient denies any focal weakness. He denies any previous history of TIA or stroke. He is now been admitted and neurology has been consulted for further evaluation and recommendations. Review of Systems Constitutional: Denies chills, Denies fever Eyes: denies blurred vision, denies pain Ears, nose, mouth and throat: Denies headache, Denies sore throat Cardiovascular: Reports dyspnea on exertion, Reports high blood pressure, Reports lightheadedness, Reports orthopnea, Denies chest pain, Denies shortness of breath Respiratory: Denies cough Neurological: Reports change in speech, Reports confusion, Reports weakness Past Medical History Past Medical History: Coronary Artery Disease (CAD), COPD, GERD/Reflux, Myocardial Infarction ([place]), Osteoarthritis (OA) Additional Past Medical History / Comment(s): COPD, osteoarthritis, multivessel coronary artery disease as mentioned above, history of sternal fracture secondary to fall, history of neck injury secondary to fall and there is a vague history of a vocal cords injury/paralysis at a time of the fall that occurred approximately 14 years ago. Last Myocardial Infarction Date:: 03/2016 History of Any Multi-Drug Resistant Organisms: None Reported Past Surgical History: Orthopedic Surgery, Tonsillectomy Additional Past Surgical History / Comment(s): Vasectomy, left knee surgery/ arthroscopy, facial surgery for a broken nose, neck surgery following a fall injury from a telephone pole and it's likely the patient had stabilization of his cervical spine, left carotid endarterectomy, peripheral vascular disease with insertion of vascular stents in lower extremities, hands surgery for a broken wrist, cholecystectomy Past Anesthesia/Blood Transfusion Reactions: Previous Problems w/ Anesthesia Additional Past Anesthesia/Blood Transfusion Reaction / Comment(s): WOKE UP DURING WRIST SX, MILD CLAUSTERPHOBIA Past Psychological History: No Psychological Hx Reported Additional Psychological History / Comment(s): PT LIVES AT HOME WITH HIS AND 1 ADULT SON. 1 INDOOR DOG. PT SERVED IN THE [employer] AND [employer]. BEFORE RETIRING PT HAD BEEN WORKING FOR [employer]. PT IS INDEPENDANT.NO OUTSIDE SERVICES. Smoking Status: Former smoker Past Alcohol Use History: None Reported Additional Past Alcohol Use History / Comment(s): STARTED SMOKING WHEN I WAS 8, QUIT 2004, WAS SMOKING 2-3 PPD Past Drug Use History: None Reported - Past Family History Father Family Medical History: Cancer Additional Family Medical History / Comment(s): STOMACH CANCER Mother Additional Family Medical History / Comment(s): POLIO Brother(s) Family Medical History: Myocardial Infarction ([place]) Medications and Allergies Home Medications Medication Instructions Recorded Confirmed Type Albuterol Nebulized [Ventolin 2.5 mg INHALATION RT-BID PRN 04/09/16 09/06/16 History Nebulized] Albuterol Sulfate [Proventil Hfa] 2 puff INHALATION RT-QID PRN 04/09/16 History Aspirin 325 mg PO DAILY 04/09/16 09/06/16 History Budesonide/Formoterol Fumarate 2 puff INHALATION RT-BID 04/09/16 09/06/16 History [Symbicort 80-4.5 Mcg Inhaler] Nitroglycerin Sl Tabs [Nitrostat] 0.4 mg SUBLINGUAL Q5M PRN 04/09/16 09/06/16 History Omeprazole [PriLOSEC] 20 mg PO AC-BID 04/09/16 09/06/16 History Tiotropium 18 Mcg/Puff [Spiriva] 2 puff INHALATION RT-DAILY 05/20/16 09/06/16 History Acetaminophen [Tylenol] 1,000 mg PO HS PRN 09/06/16 09/06/16 History Allergies Allergy/AdvReac Type Severity Reaction Status Date / Time CONTRAST DYE Allergy Itching Uncoded 09/06/16 09:17 Physical Examination - Vital Signs Vital Signs: Vital Signs Temp Pulse Pulse Resp BP BP Pulse Ox 09/06/16 16:23 98.5 F 81 18 134/73 97 09/06/16 15:12 73 09/06/16 12:32 97.6 F 09/06/16 11:45 97.7 F 75 73 18 148/65 128/61 96 09/06/16 10:40 72 18 150/69 95 09/06/16 09:38 71 18 132/62 98 09/06/16 08:45 80 18 130/62 96 09/06/16 07:44 98.1 F 84 18 152/66 98 Intake and Output 09/06/16 09/06/16 09/06/16 06:59 14:59 22:59 Intake Total 498 Output Total 300 Balance -300 498 Intake: Oral 498 Output: Urine 300 Other: Weight 81.647 kg Patient Weight 09/07/16 06:59 Weight 81.647 kg - Constitutional General appearance: average body habitus, cooperative - EENT EENT: PERRL, mucous membranes moist - Respiratory Respiratory: lungs clear, normal breath sounds - Cardiovascular Cardiovascular: regular rate, normal S1, normal S2 Extremities: no peripheral edema bilaterally - Gastrointestinal Gastrointestinal: normoactive bowel sounds - Integumentary Integumentary: normal - Neurologic Cranial nerve examination: PERRL, EOMI, VFF, V1/V2/V3 grossly intact, face symmetric, tongue midline, intact gag reflex, intact corneal reflex, normal palatal elevation Speech examination: intact Sensorimotor examination: intact Detailed motor examination: grossly full strength in all extremities Motor examination - right side: 4/5: biceps, triceps, wrist flexion, wrist extension, 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, hip flexors, knee extensors, dorsiflexion, toe extension (EHL) , plantarflexion Motor examination - left side: 4/5: biceps, triceps, wrist flexion, wrist extension, 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, hip flexors, knee extensors, dorsiflexion, toe extension (EHL) , plantarflexion Detailed sensory examination: intact Reflex and gait examination: intact Reflexes: 1+: ankle, bicep, knee, tricep - Musculoskeletal Musculoskeletal: no pain - Psychiatric Psychiatric: mood/affect appropriate, cooperative Results - Laboratory Findings CBC and BMP: 09/06/16 07:42 09/06/16 07:42 Abnormal Lab Findings: Abnormal Labs 09/06/16 09/06/16 09/06/16 07:42 07:42 07:42 RBC 4.11 L Hct 38.7 L Eosinophils # 0.8 H Chloride 110 H Calcium 8.1 L Total Creatine Kinase 51 L Total Protein 5.7 L Albumin 3.3 L 09/06/16 14:07 RBC Hct Eosinophils # Chloride Calcium Total Creatine Kinase 51 L Total Protein Albumin Assessment and Plan (1) TIA (transient ischemic attack) Status: Acute Code(s): G45.9 - TRANSIENT CEREBRAL ISCHEMIC ATTACK, UNSPECIFIED (2) Chest pain Status: Acute Code(s): R07.9 - CHEST PAIN, UNSPECIFIED (3) COPD (chronic obstructive pulmonary disease) Status: Acute Code(s): J44.9 - CHRONIC OBSTRUCTIVE PULMONARY DISEASE, UNSPECIFIED (4) Coronary artery disease Status: Acute Code(s): I25.10 - ATHSCL HEART DISEASE OF [place] CORONARY ARTERY W/O ANG PCTRS (5) Syncope and collapse Status: Acute Code(s): R55 - SYNCOPE AND COLLAPSE Plan: This patient is a 70-year-old right-handed white male who was admitted to Hospital with symptoms of lightheadedness and dizziness. He was also having 3 day history of nausea vomiting symptoms at home. Both patient and his state he had an episode of slurred speech and could not get his words out. This did slowly resolve and he was subsequently brought in to the emergency room and admitted to the hospital. He has a history of valvular heart disease. He has been evaluated at the [facility]. He was scheduled to undergo two-vessel coronary artery bypass grafting in the next week. Apparently they contacted the [facility] and his surgery is been placed on hold as he has had evidence of pneumonia on this admission. He will need to have this completely resolved before any surgical intervention. Patient denies any previous history of TIA or stroke. He underwent a carotid Doppler ultrasound which reveals right ICA stenosis of 50-69 % stenosis. Patient also has history of recent syncopal episode etiology undetermined. We will continue close neurological follow-up of this patient during this admission. He will undergo routine EEG for further evaluation tomorrow. He was being considered for transfer to the [facility] which is now been placed on hold as he has found to have evidence of pneumonia. We will continue close neurological follow-up of this patient during this admission. Time with Patient: Greater than 30
--- NOTE | 2016-09-06 19:54 | ECHOF ---
Referral Reason:Thrombus MEASUREMENTS -------- HEIGHT: 175.3 cm WEIGHT: 81.7 kg BP: IVSd: 1.1 cm (0.6 - 1.1) LVIDd: 5.1 cm (3.9 - 5.3) LVPWd: 1.0 cm (0.6 - 1.1) IVSs: 1.4 cm LVIDs: 4.1 cm LVPWs: 1.6 cm Ao Diam: 3.2 cm (2.0 - 3.7) AV Cusp: 2.2 cm (1.5 - 2.6) LA Diam: 2.4 cm (2.7 - 3.8) MV EXCURSION: 17.354 mm (> 18.000) MV EF SLOPE: 84 mm/s (70 - 150) EPSS: 1.4 cm MV E Tate: 0.89 m/s MV DecT: 167 ms MV A Tate: 0.81 m/s MV E/A Ratio: 1.10 RAP: 5.00 mmHg RVSP: 9.27 mmHg FINDINGS -------- Sinus rhythm. This was a technically difficult study with suboptimal views. Left ventricular wall thickness is normal. Overall left ventricular systolic function is mild-moderately impaired with, an EF between 40 - 45 %. Inferiorlateral Hypokinesis The right ventricle is normal in size and function. The left atrium is normal in size. The right atrium is normal in size. 1.5mg of Definity was utilized for enhancement of images The aortic valve is trileaflet, and appears structurally normal. No aortic stenosis or regurgitation. The mitral valve is normal. Mild mitral regurgitation is present. Mild tricuspid regurgitation present. The right ventricular systolic pressure, as measured by Doppler, is 9.27mmHg. The pulmonic valve was not well visualized. The aortic root size is normal. There is no pericardial effusion. CONCLUSIONS -------- 1. Sinus rhythm. 2. Mild tricuspid regurgitation present. 3. The right ventricular systolic pressure, as measured by Doppler, is 9.27mmHg. 4. The pulmonic valve was not well visualized. 5. The aortic root size is normal. 6. There is no pericardial effusion. 7. This was a technically difficult study with suboptimal views. 8. Left ventricular wall thickness is normal. 9. Overall left ventricular systolic function is mild-moderately impaired with, an EF between 40 - 45 %. 10. Inferiorlateral Hypokinesis 11. The left atrium is normal in size. 12. 1.5mg of Definity was utilized for enhancement of images 13. The aortic valve is trileaflet, and appears structurally normal. No aortic stenosis or regurgitation. 14. Mild mitral regurgitation is present. ASSISTANT PROFESSOR OF ANTHROPOLOGY: Azul Adams RDCS
[2016-09-06 20:11] LABS: Creatine Kinase 59 U/L (55-170)
[2016-09-06] MEDS: LISINOPRIL 10 MG TAB PO SCH (20:12)
[2016-09-06] MEDS: METOPROLOL TARTRATE 25 MG TAB PO SCH (20:12)
[2016-09-06 20:25] LABS: Troponin I <0.012 ng/mL (0.000-0.034)
[2016-09-06 20:37] LABS: Creatine Kinase MB 2.5 ng/mL (0.0-2.4)
[2016-09-06] MEDS: SYMBICORT 80-4.5 MCG INHALER INHALATION SCH (20:41)
[2016-09-07] MEDS: HEPARIN SODIUM,PORCINE 5,000 UNIT/ML 1 ML VIAL SQ SCH ×2 (00:28→07:56)
[2016-09-07 03:55] LABS: Cholesterol 126 mg/dL (<200); HDL Cholesterol 32 mg/dL (40-60)
[2016-09-07] MEDS ORDERED: PANTOPRAZOLE 40 MG TABLET PO SCH (07:30)
[2016-09-07] MEDS: SODIUM CHLORIDE 0.9% 1,000 ML IV SCH (07:55)
[2016-09-07] MEDS: LISINOPRIL 10 MG TAB PO SCH (07:56)
[2016-09-07] MEDS: METOPROLOL TARTRATE 25 MG TAB PO SCH (07:57)
[2016-09-07] MEDS: SYMBICORT 80-4.5 MCG INHALER INHALATION SCH (08:15)
[2016-09-07] MEDS ORDERED: SPIRONOLACTONE 25 MG TAB PO SCH (09:00)
[2016-09-07] MEDS ORDERED: ATORVASTATIN 80 MG TAB PO SCH (09:00)
[2016-09-07] MEDS ORDERED: ASPIRIN 325 MG TAB PO SCH (09:00)
[2016-09-07] MEDS ORDERED: ASPIRIN 81 MG CHEW PO SCH (10:15)
--- NOTE | 2016-09-07 12:38 | P.PN ---
Subjective Principal diagnosis: Cough and slurring of speech This is a 70-year-old gentleman with history of multivessel coronary artery disease, who is scheduled as an outpatient to undergo coronary artery bypass grafting surgery at [facility]. He presented to the hospital with symptoms of cough and congestion with mild slurring of speech. Patient was seen and examined this morning, denies any further episodes of slurring of speech. Overall is feeling significantly better today. Echocardiogram with Doppler study was performed which revealed an ejection fraction of 40-45% with mild mitral regurgitation. Patient will be discharged home today from cardiology's perspective. Objective - Vital Signs Vital signs: Vital Signs Temp 97.1 F L 09/07/16 08:00 Pulse 88 09/07/16 08:25 Resp 18 09/07/16 08:00 BP 153/75 09/07/16 08:00 Pulse Ox 94 L 09/07/16 08:00 Intake & Output 09/06/16 09/07/16 09/07/16 18:59 06:59 18:59 Intake Total 498 2140 Output Total 300 2050 Balance 198 90 Weight 81.647 kg 83.5 kg 83.5 kg Intake: Intake, IV Titration 1300 Amount Levofloxacin 750Mg-D5w 100 Pmx 750 mg In Dextrose/ Water 1 150ml.bag @ 100 mls/hr IVPB ONCE STA Rx#: [id number] Sodium Chloride 0.9% 1, 400 000 ml @ 100 mls/hr IV . Q10H MAYUR Rx#:[id number] Sodium Chloride 0.9% 1, 800 000 ml @ 100 mls/hr IV . Q10H STA Rx#:[id number] Oral 498 840 Output: Urine 300 2050 Other: Voiding Method Toilet Toilet # Voids 2 - Exam PHYSICAL EXAMINATION: HEENT: Head is atraumatic, normocephalic. Pupils equal, round. Neck is supple. There is no elevated jugular venous pressure. HEART EXAMINATION: Heart S1, S2 normal. No murmur or gallop heard. CHEST EXAMINATION: Lungs are clear to auscultation and precussion. No chest wall tenderness is noted on palpation or with deep breathing. ABDOMEN: Soft, nontender. Bowel sounds are heard. No organomegaly noted. EXTREMITIES: 2+ peripheral pulses with no evidence of peripheral edema and no calf tenderness noted. NEUROLOGIC patient is awake, alert and oriented -3. . - Labs CBC & Chem 7: 09/06/16 07:42 09/06/16 07:42 Labs: Abnormal Lab Results - Last 24 Hours (Table) 09/06/16 09/06/16 09/06/16 Range/Units 07:42 14:07 19:43 Total Creatine Kinase 51 L (55-170) U/L CK-MB (CK-2) 2.5 H* (0.0-2.4) ng/mL Triglycerides 223 H (<150) mg/dL HDL Cholesterol 32 L (40-60) mg/dL Microbiology - Last 24 Hours (Table) 09/06/16 10:32 Urine Culture - Preliminary Urine,Voided Assessment and Plan (1) Cough Status: Acute (2) Pneumonia Status: Acute (3) CAD (coronary artery disease) Status: Acute (4) Slurred speech Status: Acute (5) Hyperlipemia Status: Acute (6) HTN (hypertension) Status: Acute Plan: Cardiology's perspective, patient may be able to be discharged home today. He will follow-up with his manager call center at the [facility] as an outpatient. DNP note has been reviewed, I agree with a documented findings and plan of care. Patient was seen and examined.
[2016-09-07 12:52] VITALS: BP 147/74; PULSE 68; RESP 17; TEMP 97.9
--- NOTE | 2016-09-07 14:09 | P.DS ---
Providers Date of admission: 09/06/16 11:12 Attending physician: Dinah Radford Consults: 09/06/16 11:12 Consult Physician Routine Consulting Provider: Daysi Johns Consult Reason/Comments: tia Do you want consulting provider notified?: Yes Consult Physician Urgent Consulting Provider: Avery Lazo Consult Reason/Comments: cp Do you want consulting provider notified?: Yes Primary care physician: [facility] Course: This is a 70-year-old gentleman that was admitted to the hospital with complains of slight dizziness and difficulty breathing and pressure a similar event that has happened over 2 months ago at which point he was diagnosed with the severe triple-vessel disease which required an intervention that is scheduled for next Friday Patient apparently was not able to describe his symptoms and hence there was some concern regarding a TIA at that time. Patient's was at bedside states that is usually his previous episode as well However I workup has been done a core carotid disease was noted on the right side of 50-69% EKG did not reveal ST-T wave changes Patient wanted to be seen at [facility] where he is scheduled for surgery Patient did not have any focal deficits on examination his speech was never slurred Patient was also noted for some concern of pneumonia. T clinically there does not appear to be a significant concern for pneumonic infiltrate Gen. appearance oriented 3 does not appear to be in distress Neck is supple no JVD Head is atraumatic normal self the pupils equal round reactive light and admission Abdomen is soft nontender organomegaly CAD Triple-vessel coronary artery disease. Scheduled for surgery next Friday Peripheral artery disease with history of carotid endarterectomy COPD not in exacerbation Chronic CHF with ejection fraction 35-40%. Systolic dysfunction GERD History of an STEMI in March 2016. DVT prophylaxis Patient is discharged home and is recommended take 81 mg of aspirin which is only change from 325 mg There is recommended activity till the surgery Is discharged home in stable condition . Patient Condition at Discharge: Fair Plan - Discharge Summary New Discharge Prescriptions: New Aspirin 81 mg PO DAILY Continue Omeprazole [PriLOSEC] 20 mg PO AC-BID Budesonide/Formoterol Fumarate [Symbicort 80-4.5 Mcg Inhaler] 2 puff INHALATION RT-BID Albuterol Nebulized [Ventolin Nebulized] 2.5 mg INHALATION RT-BID PRN PRN Reason: Shortness Of Breath Nitroglycerin Sl Tabs [Nitrostat] 0.4 mg SUBLINGUAL Q5M PRN PRN Reason: Chest Pain Albuterol Sulfate [Proventil Hfa] 2 puff INHALATION RT-QID PRN PRN Reason: Shortness Of Breath Atorvastatin [Lipitor] 80 mg PO DAILY #30 tab Lisinopril [Zestril] 10 mg PO BID #30 tab Metoprolol Tartrate [Lopressor] 25 mg PO BID #30 tab Spironolactone [Aldactone] 25 mg PO DAILY #30 tab Tiotropium 18 Mcg/Puff [Spiriva] 2 puff INHALATION RT-DAILY Acetaminophen [Tylenol] 1,000 mg PO HS PRN PRN Reason: Pain Discontinued Aspirin 325 mg PO DAILY Discharge Medication List Albuterol Nebulized [Ventolin Nebulized] 2.5 mg INHALATION RT-BID PRN 04/09/16 [ History] Albuterol Sulfate [Proventil Hfa] 2 puff INHALATION RT-QID PRN 04/09/16 [History ] Budesonide/Formoterol Fumarate [Symbicort 80-4.5 Mcg Inhaler] 2 puff INHALATION RT-BID 04/09/16 [History] Nitroglycerin Sl Tabs [Nitrostat] 0.4 mg SUBLINGUAL Q5M PRN 04/09/16 [History] Omeprazole [PriLOSEC] 20 mg PO AC-BID 04/09/16 [History] Atorvastatin [Lipitor] 80 mg PO DAILY #30 tab 04/12/16 [Rx] Lisinopril [Zestril] 10 mg PO BID #30 tab 04/12/16 [Rx] Metoprolol Tartrate [Lopressor] 25 mg PO BID #30 tab 04/12/16 [Rx] Spironolactone [Aldactone] 25 mg PO DAILY #30 tab 04/12/16 [Rx] Tiotropium 18 Mcg/Puff [Spiriva] 2 puff INHALATION RT-DAILY 05/20/16 [History] Acetaminophen [Tylenol] 1,000 mg PO HS PRN 09/06/16 [History] Aspirin 81 mg PO DAILY 09/07/16 [Rx] Follow up Appointment(s)/Referral(s): Fer Godoy DO [Primary Care Provider] - 1-2 days Discharge Disposition: HOME SELF-CARE
--- NOTE | 2016-09-07 14:27 | P.PN ---
Subjective This patient is a 70-year-old male with known history of significant coronary artery disease and valvular heart disease. Patient was being considered for surgery at the [facility]. He was admitted to Hospital as he had symptoms of slurred speech and possible TIA. His speech has significant improved since yesterday. He continues to do fairly well overall and has had no further recurrence of TIA like symptoms. Patient was being considered for open heart surgery at the [facility]. This was placed on hold as there was concern that he may have pneumonia. He is to follow-up with the [facility] for further management of his heart disease. Patient has been seen by cardiology. He has had no further episodes of slurred speech today. His echocardiogram with Doppler study was performed and revealed an ejection fraction of 40-45% with mild mitral regurgitation. Cardiology has cleared the patient for discharge home today. Patient will follow up with his health outcomes liaison at the [facility] for further management of his heart disease. We will continue close neurological follow-up with the patient during this admission. Objective - Vital Signs Vital signs: Vital Signs Temp 97.9 F 09/07/16 12:00 Pulse 68 09/07/16 12:00 Resp 17 09/07/16 12:00 BP 147/74 09/07/16 12:00 Pulse Ox 95 09/07/16 12:00 Intake & Output 09/06/16 09/07/16 09/07/16 18:59 06:59 18:59 Intake Total 498 2140 Output Total 300 2050 Balance 198 90 Weight 81.647 kg 83.5 kg 83.5 kg Intake: Intake, IV Titration 1300 Amount Levofloxacin 750Mg-D5w 100 Pmx 750 mg In Dextrose/ Water 1 150ml.bag @ 100 mls/hr IVPB ONCE STA Rx#: [id number] Sodium Chloride 0.9% 1, 400 000 ml @ 100 mls/hr IV . Q10H MAYUR Rx#:[id number] Sodium Chloride 0.9% 1, 800 000 ml @ 100 mls/hr IV . Q10H STA Rx#:[id number] Oral 498 840 Output: Urine 300 2050 Other: Voiding Method Toilet Toilet # Voids 2 - Exam Physical examination: PHYSICAL EXAMINATION: Patient is resting comfortably in bed. VITAL SIGNS: Blood pressure is [147/74]. Heart rate is [68]. Respiration is [17] . Temperature is [97.9]. HEENT: Head is atraumatic, neck is supple, there were no carotid bruits. CHEST: Lungs are clear to auscultation and percussion. CARDIAC: S1, S2 normal rate and rhythm. There is no murmur. ABDOMEN: Soft and nontender. Bowel sounds are present. EXTREMITIES: There is no pedal edema. Peripheral pulses are present. Neurological examination: Patient has a nonfocal neurological examination today. - Labs CBC & Chem 7: 09/06/16 07:42 09/06/16 07:42 Labs: Abnormal Lab Results - Last 24 Hours (Table) 09/06/16 09/06/16 09/06/16 Range/Units 07:42 14:07 19:43 Total Creatine Kinase 51 L (55-170) U/L CK-MB (CK-2) 2.5 H* (0.0-2.4) ng/mL Triglycerides 223 H (<150) mg/dL HDL Cholesterol 32 L (40-60) mg/dL Microbiology - Last 24 Hours (Table) 09/06/16 10:32 Urine Culture - Preliminary Urine,Voided Assessment and Plan (1) TIA (transient ischemic attack) Status: Acute Code(s): G45.9 - TRANSIENT CEREBRAL ISCHEMIC ATTACK, UNSPECIFIED (2) Chest pain Status: Acute Code(s): R07.9 - CHEST PAIN, UNSPECIFIED (3) COPD (chronic obstructive pulmonary disease) Status: Acute Code(s): J44.9 - CHRONIC OBSTRUCTIVE PULMONARY DISEASE, UNSPECIFIED (4) Coronary artery disease Status: Acute Code(s): I25.10 - ATHSCL HEART DISEASE OF [place] CORONARY ARTERY W/O ANG PCTRS (5) Syncope and collapse Status: Acute Code(s): R55 - SYNCOPE AND COLLAPSE Plan: This patient is a 70-year-old right-handed white male who was admitted to Hospital with symptoms of lightheadedness and dizziness. He was also having 3 day history of nausea vomiting symptoms at home. Both patient and his state he had an episode of slurred speech and could not get his words out. This did slowly resolve and he was subsequently brought in to the emergency room and admitted to the hospital. He has a history of valvular heart disease. He has been evaluated at the [facility]. He was scheduled to undergo two-vessel coronary artery bypass grafting in the next week. Apparently they contacted the [facility] and his surgery is been placed on hold as he has had evidence of pneumonia on this admission. He will need to have this completely resolved before any surgical intervention. Patient denies any previous history of TIA or stroke. He underwent a carotid Doppler ultrasound which reveals right ICA stenosis of 50-69 % stenosis. Patient also has history of recent syncopal episode etiology undetermined. We will continue close neurological follow-up of this patient during this admission. He will undergo routine EEG for further evaluation tomorrow. He was being considered for transfer to the [facility] which is now been placed on hold as he has found to have evidence of pneumonia. Patient has been seen by cardiology. They have cleared the patient for discharge home today. He has had no further recurrence of TIA symptoms. His speech has remained clear since admission to the hospital. He should follow-up with [facility] cardiology department regarding further management of his heart disease. We will continue close neurological follow-up of this patient during this admission.
== END 2016-09-07 14:47 | disposition home or self-care (01) ==
LOC: EC 07:30 → INTOOBSV 11:12 → 6SEL 11:12
PROVIDERS: ADMIT Hospitalist; ATTEND Hospitalist
DX: J44.0 Chronic obstructive pulmonary disease with (acute) lower respiratory infection (principal); R07.9 Chest pain, unspecified; R42 Dizziness and giddiness; G45.9 Transient cerebral ischemic attack, unspecified; I25.10 Atherosclerotic heart disease of native coronary artery without angina pectoris; I25.2 Old myocardial infarction; K21.9 Gastro-esophageal reflux disease without esophagitis; M19.90 Unspecified osteoarthritis, unspecified site; R05 Cough; R41.82 Altered mental status, unspecified; R47.81 Slurred speech; Z87.891 Personal history of nicotine dependence; Z79.899 Other long term (current) drug therapy; Z79.82 Long term (current) use of aspirin; Z80.0 Family history of malignant neoplasm of digestive organs; Z82.49 Family history of ischemic heart disease and other diseases of the circulatory system; I73.9 Peripheral vascular disease, unspecified; I10 Essential (primary) hypertension; I34.0 Nonrheumatic mitral (valve) insufficiency; R11.2 Nausea with vomiting, unspecified; E78.5 Hyperlipidemia, unspecified
CPT/HCPCS: 96361 ×8; 96375 ×2; 99285 ×2; 96365; 96366; 36415; 94640 ×3; 93005; 97161; 92610; 80061; 80053; 82550; 82553; 83735; 84100; 84484; 85025; 85610; 85730; 81003; 87040; 87086; 71020; 93880; 70450; G0378 ×2; C8929; J2270; Q9957; J1956; 93306

== ENCOUNTER 2016-11-22 13:09 | Emergency (ER) | payer OTHER, MEDICARE ==
[2016-11-22] MEDS ORDERED: IPRATROPIUM-ALBUTEROL 3 ML NEB INHALATION STA (13:48)
--- NOTE | 2016-11-22 13:50 | ED ---
Extremity Problem HPI - General Chief complaint: Extremity Problem,Nontraumatic Stated complaint: sent by Matilda/yevgeniy blood clot Time Seen by Provider: 11/22/16 13:22 Source: patient, family, RN notes reviewed Mode of arrival: wheelchair Limitations: no limitations - History of Present Illness Initial comments: This is a 71-year-old male who was sent here for evaluation for the [place] [facility]. Patient's had pain and swelling in his left lower extremity which is more so than usual. He also had a cough shortness of breath phlegm production of brownish colored phlegm. No chest pain. Of note he received did have bypass surgery a vein was harvested from the left lower extremity. He does state the pain and swelling up and going on for about 2 weeks. He does state that the wounds from the vein harvesting are healing slowly but well. MD Complaint: extremity pain, extremity swelling, other - Related Data Home Medications Medication Instructions Recorded Confirmed Albuterol Nebulized [Ventolin 2.5 mg INHALATION RT-BID PRN 04/09/16 11/22/16 Nebulized] Albuterol Sulfate [Proventil Hfa] 2 puff INHALATION RT-QID PRN 04/09/16 11/22/16 Budesonide/Formoterol Fumarate 2 puff INHALATION RT-BID 04/09/16 11/22/16 [Symbicort 80-4.5 Mcg Inhaler] Nitroglycerin Sl Tabs [Nitrostat] 0.4 mg SUBLINGUAL Q5M PRN 04/09/16 11/22/16 Omeprazole [PriLOSEC] 20 mg PO AC-BID 04/09/16 11/22/16 Tiotropium 18 Mcg/Puff [Spiriva] 2 puff INHALATION RT-DAILY 05/20/16 11/22/16 Atorvastatin [Lipitor] 40 mg PO DAILY 11/22/16 11/22/16 Clopidogrel Bisulfate [Plavix] 75 mg PO DAILY 11/22/16 11/22/16 Furosemide [Lasix] 40 mg PO AC-BID 11/22/16 11/22/16 Isosorbide Mononitrate ER [Imdur] 30 mg PO DAILY 11/22/16 11/22/16 Metoprolol Tartrate [Lopressor] 50 mg PO BID 11/22/16 11/22/16 Potassium Chloride [Klor-Con 10] 10 meq PO BID 11/22/16 11/22/16 Previous Rx's Medication Instructions Recorded Aspirin 81 mg PO DAILY 09/07/16 Allergies Allergy/AdvReac Type Severity Reaction Status Date / Time Iodinated Contrast- Oral and AdvReac Itching Verified 11/22/16 13:27 IV Dye Review of Systems ROS Statement: Those systems with pertinent positive or pertinent negative responses have been documented in the HPI. ROS Other: All systems not noted in ROS Statement are negative. Past Medical History Past Medical History: Coronary Artery Disease (CAD), COPD, GERD/Reflux, Myocardial Infarction ([place]), Osteoarthritis ([place]) Additional Past Medical History / Comment(s): COPD, osteoarthritis, multivessel coronary artery disease as mentioned above, history of sternal fracture secondary to fall, history of neck injury secondary to fall and there is a vague history of a vocal cords injury/paralysis at a time of the fall that occurred approximately 14 years ago. Last Myocardial Infarction Date:: 03/2016 History of Any Multi-Drug Resistant Organisms: None Reported Past Surgical History: Orthopedic Surgery, Tonsillectomy Additional Past Surgical History / Comment(s): Vasectomy, left knee surgery/ arthroscopy, facial surgery for a broken nose, neck surgery following a fall injury from a telephone pole and it's likely the patient had stabilization of his cervical spine, left carotid endarterectomy, peripheral vascular disease with insertion of vascular stents in lower extremities, hands surgery for a broken wrist, cholecystectomy Past Anesthesia/Blood Transfusion Reactions: Previous Problems w/ Anesthesia Additional Past Anesthesia/Blood Transfusion Reaction / Comment(s): WOKE UP DURING WRIST SX, MILD CLAUSTERPHOBIA Past Psychological History: No Psychological Hx Reported Smoking Status: Former smoker Past Alcohol Use History: None Reported Past Drug Use History: None Reported - Past Family History Father Family Medical History: Cancer Additional Family Medical History / Comment(s): STOMACH CANCER Mother Additional Family Medical History / Comment(s): POLIO Brother(s) Family Medical History: Myocardial Infarction ([place]) General Exam - General Exam Comments Initial Comments: This is a well-developed well-nourished awake alert oriented times 3 male Limitations: no limitations General appearance: alert, in no apparent distress Head exam: Present: atraumatic, normocephalic, normal inspection Eye exam: Present: normal appearance, PERRL, EOMI. Absent: scleral icterus, conjunctival injection, periorbital swelling ENT exam: Present: normal exam, mucous membranes moist Neck exam: Present: normal inspection. Absent: tenderness, meningismus, lymphadenopathy Respiratory exam: Present: wheezes, rales, decreased breath sounds. Absent: respiratory distress, rhonchi, stridor Cardiovascular Exam: Present: regular rate, normal rhythm, normal heart sounds. Absent: systolic murmur, diastolic murmur, rubs, gallop, clicks GI/Abdominal exam: Present: soft, normal bowel sounds. Absent: distended, tenderness, guarding, rebound, rigid Extremities exam: Present: full ROM, tenderness (Left calf tenderness with some edema noted the incision sites from the vein heart failure healing well with no evidence of any infection. ), normal capillary refill, pedal edema. Absent: joint swelling, calf tenderness Back exam: Present: normal inspection Neurological exam: Present: alert, oriented X3, CN II-XII intact Psychiatric exam: Present: normal affect, normal mood Skin exam: Present: warm, dry, intact, normal color. Absent: rash Course Vital Signs 11/22/16 11/22/16 11/22/16 13:12 14:38 14:44 Temperature 98.3 F Pulse Rate 92 88 92 Respiratory 20 Rate Blood Pressure 137/65 O2 Sat by Pulse 95 Oximetry 11/22/16 15:41 Temperature Pulse Rate 88 Respiratory 16 Rate Blood Pressure 139/77 O2 Sat by Pulse 96 Oximetry Medical Decision Making - Medical Decision Making Patient will be discharged with instructions to start the an a lot of sore prescribed to him today. Follow-up with his doctor return when necessary no evidence of pulmonary embolus more DVT. Additionally the patient does have a pro-air inhaler which he states does help him. - Lab Data Result diagrams: 11/22/16 14:13 11/22/16 14:13 Lab Results 11/22/16 11/22/16 11/22/16 Range/Units 14:13 14:13 14:13 WBC 9.1 (3.8-10.6) k/uL RBC 3.71 L (4.30-5.90) m/uL Hgb 10.4 L (13.0-17.5) gm/dL Hct 33.3 L (39.0-53.0) % MCV 89.6 (80.0-100.0) fL MCH 28.1 (25.0-35.0) pg MCHC 31.4 (31.0-37.0) g/dL RDW 15.9 H (11.5-15.5) % Plt Count 374 (150-450) k/uL Neutrophils % 59 % Lymphocytes % 12 % Monocytes % 10 % Eosinophils % 16 % Basophils % 0 % Neutrophils # 5.3 (1.3-7.7) k/uL Lymphocytes # 1.1 (1.0-4.8) k/uL Monocytes # 0.9 (0-1.0) k/uL Eosinophils # 1.5 H (0-0.7) k/uL Basophils # 0.0 (0-0.2) k/uL Hypochromasia Slight D-Dimer (<0.60) mg/L FEU Sodium (137-145) mmol/L Potassium (3.5-5.1) mmol/L Chloride (98-107) mmol/L Carbon Dioxide (22-30) mmol/L Anion Gap mmol/L BUN (9-20) mg/dL Creatinine (0.66-1.25) mg/dL Est GFR (MDRD) Af Amer (>60 ml/min/1.73 sqM) Est GFR (MDRD) Non-Af (>60 ml/min/1.73 sqM) Glucose (74-99) mg/dL Calcium (8.4-10.2) mg/dL Magnesium (1.6-2.3) mg/dL Total Bilirubin (0.2-1.3) mg/dL AST (17-59) U/L ALT (21-72) U/L Alkaline Phosphatase (38-126) U/L Total Creatine Kinase 31 L (55-170) U/L CK-MB (CK-2) 2.0 (0.0-2.4) ng/mL CK-MB (CK-2) Rel Index 6.5 NT-Pro-B Natriuret Pep 1970 pg/mL Total Protein (6.3-8.2) g/dL Albumin (3.5-5.0) g/dL 11/22/16 11/22/16 Range/Units 14:13 14:13 WBC (3.8-10.6) k/uL RBC (4.30-5.90) m/uL Hgb (13.0-17.5) gm/dL Hct (39.0-53.0) % MCV (80.0-100.0) fL MCH (25.0-35.0) pg MCHC (31.0-37.0) g/dL RDW (11.5-15.5) % Plt Count (150-450) k/uL Neutrophils % % Lymphocytes % % Monocytes % % Eosinophils % % Basophils % % Neutrophils # (1.3-7.7) k/uL Lymphocytes # (1.0-4.8) k/uL Monocytes # (0-1.0) k/uL Eosinophils # (0-0.7) k/uL Basophils # (0-0.2) k/uL Hypochromasia D-Dimer 2.06 H (<0.60) mg/L FEU Sodium 139 (137-145) mmol/L Potassium 4.1 (3.5-5.1) mmol/L Chloride 103 (98-107) mmol/L Carbon Dioxide 26 (22-30) mmol/L Anion Gap 10 mmol/L BUN 19 (9-20) mg/dL Creatinine 0.79 (0.66-1.25) mg/dL Est GFR (MDRD) Af Amer >60 (>60 ml/min/1.73 sqM) Est GFR (MDRD) Non-Af >60 (>60 ml/min/1.73 sqM) Glucose 112 H (74-99) mg/dL Calcium 9.0 (8.4-10.2) mg/dL Magnesium 1.5 L (1.6-2.3) mg/dL Total Bilirubin 0.2 (0.2-1.3) mg/dL AST 25 (17-59) U/L ALT 39 (21-72) U/L Alkaline Phosphatase 70 (38-126) U/L Total Creatine Kinase (55-170) U/L CK-MB (CK-2) (0.0-2.4) ng/mL CK-MB (CK-2) Rel Index NT-Pro-B Natriuret Pep pg/mL Total Protein 6.3 (6.3-8.2) g/dL Albumin 3.3 L (3.5-5.0) g/dL - EKG Data -: EKG Interpreted by Me EKG shows normal: sinus rhythm (Sinus rhythm rate of 88. Interval 148 QRS duration 86 QT since QTC of 366/442 evidence of old anterior infarction possible left atrial enlargement unifocal PVC noted) - Radiology Data Radiology results: report reviewed (I did review the imaging and reports no evidence of acute findings.), image reviewed Disposition Clinical Impression: Leg pain, Sinusitis, Bronchitis Disposition: HOME SELF-CARE Condition: Good Instructions: Sinusitis (ED), Acute Bronchitis (ED), Bronchospasm (ED) Additional Instructions: Start your antibiotics as directed by her doctor in follow-up. Referrals: Fer Godoy DO [Primary Care Provider] - 1-2 days
[2016-11-22 14:31] LABS: Basophils % (A) 0 %; CH 28.9; CHCM 32.3; Eosinophils # (A) 1.5 k/uL (0-0.7); Eosinophils % (A) 16 %; HCT 33.3 % (39.0-53.0); HGB 10.4 gm/dL (13.0-17.5); Hypochromasia Slight; Luc # (Auto) 0.33; Luc % (Auto) 4; Lymphocytes # (A) 1.1 k/uL (1.0-4.8); Lymphocytes % (A) 12 %; MCH 28.1 pg (25.0-35.0); MCHC 31.4 g/dL (31.0-37.0); MCV 89.6 fL (80.0-100.0); Mean Platelet Volume 7.5; Monocytes # (A) 0.9 k/uL (0-1.0); Monocytes % (A) 10 %; Neutrophils # (A) 5.3 k/uL (1.3-7.7); Neutrophils % (A) 59 %; RBC 3.71 m/uL (4.30-5.90); RDW 15.9 % (11.5-15.5); WBC 9.1 k/uL (3.8-10.6); WBC (Perox) 9.65
[2016-11-22 14:36] LABS: ALT 39 U/L (21-72); AST 25 U/L (17-59); Alkaline Phosphatase 70 U/L (38-126); Anion Gap 10 mmol/L; Blood Urea Nitrogen 19 mg/dL (9-20); Carbon Dioxide 26 mmol/L (22-30); Chloride 103 mmol/L (98-107); Glucose 112 mg/dL (74-99); Magnesium 1.5 mg/dL (1.6-2.3); Non-African American GFR(MDRD) >60 (>60 ml/min/1.73 sqM); Potassium 4.1 mmol/L (3.5-5.1); Sodium 139 mmol/L (137-145); Total Bilirubin 0.2 mg/dL (0.2-1.3); Total Protein 6.3 g/dL (6.3-8.2)
--- NOTE | 2016-11-22 15:09 | US ---
EXAMINATION TYPE: US venous doppler duplex LE LT DATE OF EXAM: 11/22/2016 3:00 PM COMPARISON: NONE CLINICAL HISTORY: Pain. Left leg swelling x 1 month SIDE PERFORMED: Left TECHNIQUE: The lower extremity deep venous system is examined utilizing real time linear array sonog dominguez with graded compression, doppler sonography and color-flow sonography. VESSELS IMAGED: External Iliac Vein (EIV) Common Femoral Vein Deep Femoral Vein Greater Saphenous Vein * Femoral Vein Popliteal Vein Small Saphenous Vein * Proximal Calf Veins (* superficial vessels) Left Leg: Appears negative for DVT IMPRESSION: No evidence for PE.
--- NOTE | 2016-11-22 15:15 | XR ---
EXAMINATION TYPE: XR chest 2V DATE OF EXAM: 11/22/2016 COMPARISON: 09/06/2016 HISTORY: Shortness of breath TECHNIQUE: Frontal and lateral views of the chest are obtained. FINDINGS: Scattered senescent parenchymal changes noted. Hyperinflation compatible with COPD. No evidence for infiltrate. No evidence for atelectasis. Heart size is stable. Mediastinal structures are stable and grossly unremarkable. No evidence for hilar prominence. Degenerative changes dorsal spine. IMPRESSION: 1. No evidence for acute pulmonary disease.
[2016-11-22] MEDS ORDERED: RX INFO: IV CONTRAST WAS GIVEN 1 EACH MISC MISCELLANE PRN (15:29)
[2016-11-22] MEDS ORDERED: diphenhydrAMINE 50 MG/ML 1 ML VIAL IVP STA (15:32)
[2016-11-22] MEDS ORDERED: FAMOTIDINE 20 MG/2 ML VIAL IV STA (15:32)
[2016-11-22] MEDS ORDERED: methylPREDNISolone SOD SUCCI 125 MG/2 ML VIAL IV STA (15:32)
[2016-11-22 15:41] VITALS: PULSE 88
--- NOTE | 2016-11-22 17:08 | CT ---
EXAMINATION TYPE: CT angio chest DATE OF EXAM: 11/22/2016 COMPARISON: CTA chest April 09, 2016 HISTORY: Patient complains of chest congestion, cough, and difficulty breathing. CT DLP: 537 mGycm. Automated Exposure Control for Dose Reduction was Utilized. CONTRAST: CTA scan of the thorax is performed with IV Contrast, patient injected with 100 mL of Omnipaque 350, pulmonary embolism protocol. MIP Images are created on CT scanner and reviewed. FINDINGS: LUNGS: Mild underlying emphysematous change is present bilaterally. There is new triangular shaped co nsolidation and/or atelectasis in the lingula and right middle lobe near diaphragm. No suspicious pul monary nodule or mass is present bilaterally. No pleural effusion or pneumothorax is seen. There is s table central mild peribronchial wall thickening. MEDIASTINUM: Post CABG changes with mediastinal clips and sternal wires is now identified. There is n onspecific ill-defined fluid or fat stranding in the anterior superior mediastinum. Finding is presum ed reflective of postsurgical scarring or change, inflammatory process or mediastinitis cannot be exc luded in appropriate clinical setting. Clinical correlation advised. There is satisfactory enhancemen t of the pulmonary artery and its branches, there is no CT evidence for pulmonary embolism. There is stable prominent subcarinal lymph node measuring 1.8 x 1.1 cm on axial image 68. There are prominent stable paracarinal and right hilar lymph nodes. No cardiomegaly or pericardial effusion is seen. OTHER: Scattered hypodense lesions throughout the liver consistent with simple thin-walled cysts. The re is mild to moderate mixed plaque in visualized descending aorta. There is mild multilevel spurring . Osseous structures are demineralized. There is mild anterior wedging of upper to midthoracic verteb ra redemonstrated. IMPRESSION: 1. No CT evidence for pulmonary embolism. 2. Interval CABG procedure. Sternotomy changes noted. Ill-defined fluid in the anterior abdominal wal l extending into the anterior mediastinum is nonspecific, finding could be related to CABG procedure, infection or mediastinitis cannot be excluded in appropriate clinical setting. Clinical correlation advised.
[2016-11-22 17:33] VITALS: BP 138/78; RESP 17; TEMP 98.6
== END 2016-11-22 17:32 | disposition home or self-care (01) ==
LOC: EC 13:09
DX: M79.605 Pain in left leg (principal); J32.9 Chronic sinusitis, unspecified; J40 Bronchitis, not specified as acute or chronic; I25.10 Atherosclerotic heart disease of native coronary artery without angina pectoris; J44.9 Chronic obstructive pulmonary disease, unspecified; K21.9 Gastro-esophageal reflux disease without esophagitis; I25.2 Old myocardial infarction; M19.90 Unspecified osteoarthritis, unspecified site; Z87.891 Personal history of nicotine dependence; Z79.51 Long term (current) use of inhaled steroids; Z79.01 Long term (current) use of anticoagulants; Z79.899 Other long term (current) drug therapy; Z91.041 Radiographic dye allergy status
CPT/HCPCS: 99284 ×2; 96374 ×2; 96375 ×3; 36415; 94640; 93005; 85379; 83880; 80053; 82550; 82553; 83735; 85025; 71020; 93971; 71275; J1200; J2930; Q9967

== ENCOUNTER 2016-12-25 06:10 | Inpatient (IN) | payer MEDICARE, OTHER ==
[2016-12-25 06:39] LABS: Glucose,Whole Blood 113 mg/dL (75-99)
[2016-12-25] MEDS ORDERED: IPRATROPIUM-ALBUTEROL 3 ML NEB INHALATION STA (06:40)
[2016-12-25 06:51] LABS: Basophils % (A) 0 %; CH 26.7; CHCM 30.3; Eosinophils # (A) 1.2 k/uL (0-0.7); Eosinophils % (A) 11 %; HCT 36.4 % (39.0-53.0); HDW 3.17; HGB 10.9 gm/dL (13.0-17.5); Hypochromasia Marked; Luc # (Auto) 0.49; Luc % (Auto) 4; Lymphocytes # (A) 1.6 k/uL (1.0-4.8); Lymphocytes % (A) 14 %; MCH 26.5 pg (25.0-35.0); MCV 88.4 fL (80.0-100.0); Mean Platelet Volume 6.9; Monocytes # (A) 1.1 k/uL (0-1.0); Monocytes % (A) 9 %; Neutrophils # (A) 7.3 k/uL (1.3-7.7); Neutrophils % (A) 62 %; RBC 4.12 m/uL (4.30-5.90); RDW 15.1 % (11.5-15.5); WBC 11.7 k/uL (3.8-10.6); WBC (Perox) 11.37
[2016-12-25 07:03] LABS: ALT 29 U/L (21-72); AST 27 U/L (17-59); Alkaline Phosphatase 70 U/L (38-126); Anion Gap 11 mmol/L; Blood Urea Nitrogen 27 mg/dL (9-20); Calcium 9.1 mg/dL (8.4-10.2); Carbon Dioxide 21 mmol/L (22-30); Chloride 108 mmol/L (98-107); Glucose 114 mg/dL (74-99); Non-African American GFR(MDRD) >60 (>60 ml/min/1.73 sqM); Potassium 4.9 mmol/L (3.5-5.1); Sodium 140 mmol/L (137-145); Total Bilirubin 0.4 mg/dL (0.2-1.3); Total Protein 6.9 g/dL (6.3-8.2)
--- NOTE | 2016-12-25 07:03 | ED ---
Altered Mental Status HPI - General Source: patient Mode of arrival: ambulatory Limitations: no limitations - History of Present Illness MD Complaint: altered mental status, confusion Onset/Timin -: hour(s) Severity: moderate Consistency of Symptoms: waxing and waning Context: recent fever Associated Symptoms: fever/chills <Pato Herrera - Last Filed: 12/25/16 06:41> <Mynor Regalado - Last Filed: 12/25/16 09:08> - General Chief Complaint: Altered Mental Status Stated Complaint: Disoriented - History of Present Illness Initial Comments: This patient is 71-year-old man brought to have evaluation for bizarre behavior/ confusion. The patient's states that he was not acting appropriately this morning. She relates that he had been trying to make some tea this morning and then put peanut butter and the cup. (Pato Herrera) - Related Data Home Medications Medication Instructions Recorded Confirmed Albuterol Nebulized [Ventolin 2.5 mg INHALATION RT-QID 04/09/16 12/25/16 Nebulized] Albuterol Sulfate [Proventil Hfa] 2 puff INHALATION RT-QID PRN 04/09/16 12/25/16 Budesonide/Formoterol Fumarate 2 puff INHALATION RT-BID 04/09/16 12/25/16 [Symbicort 80-4.5 Mcg Inhaler] Nitroglycerin Sl Tabs [Nitrostat] 0.4 mg SUBLINGUAL Q5M PRN 04/09/16 12/25/16 Omeprazole [PriLOSEC] 20 mg PO AC-BID 04/09/16 12/25/16 Tiotropium 18 Mcg/Puff [Spiriva] 2 puff INHALATION RT-DAILY 05/20/16 12/25/16 Atorvastatin [Lipitor] 40 mg PO DAILY 11/22/16 12/25/16 Clopidogrel Bisulfate [Plavix] 75 mg PO DAILY 11/22/16 12/25/16 Furosemide [Lasix] 40 mg PO BID@0800,1600 11/22/16 12/25/16 Isosorbide Mononitrate ER [Imdur] 30 mg PO DAILY 11/22/16 12/25/16 Metoprolol Tartrate [Lopressor] 50 mg PO BID 11/22/16 12/25/16 Potassium Chloride [Klor-Con 10] 10 meq PO BID 11/22/16 12/25/16 Acetaminophen Tab [Tylenol Tab] 1,000 mg PO Q6HR PRN 12/25/16 12/25/16 Acetaminophen/Diphenhydramine 2 tab PO HS PRN 12/25/16 12/25/16 [Tylenol PM 500-25mg] Ipratropium Nebulized [Atrovent 0.5 mg INHALATION RT-QID 12/25/16 12/25/16 Nebulized] L.acidoph,Paracasei, B.lactis 1 cap PO DAILY 12/25/16 12/25/16 [Probiotic] Multivitamins, Thera [Multivitamin 1 tab PO DAILY 12/25/16 12/25/16 (formulary)] Previous Rx's Medication Instructions Recorded Aspirin 81 mg PO DAILY 09/07/16 Allergies Allergy/AdvReac Type Severity Reaction Status Date / Time Iodinated Contrast- Oral and AdvReac Itching Verified 12/25/16 08:29 IV Dye Review of Systems ROS Other: All systems not noted in ROS Statement are negative. Constitutional: Reports: fever. Denies: chills Respiratory: Reports: cough (Chronic). Denies: dyspnea, hemoptysis Cardiovascular: Denies: chest pain, palpitations, edema, syncope Gastrointestinal: Denies: abdominal pain, nausea, vomiting, diarrhea, constipation Genitourinary: Denies: dysuria, hematuria Musculoskeletal: Denies: back pain Skin: Denies: rash Neurological: Reports: confusion. Denies: headache, weakness, numbness <Pato Herrera - Last Filed: 12/25/16 06:41> ROS Other: All systems not noted in ROS Statement are negative. <Mynor Regalado - Last Filed: 12/25/16 09:08> ROS Statement: Those systems with pertinent positive or pertinent negative responses have been documented in the HPI. Past Medical History Past Medical History: Coronary Artery Disease (CAD), COPD, GERD/Reflux, Myocardial Infarction ([place]), Osteoarthritis (OA) Additional Past Medical History / Comment(s): COPD, osteoarthritis, multivessel coronary artery disease as mentioned above, history of sternal fracture secondary to fall, history of neck injury secondary to fall and there is a vague history of a vocal cords injury/paralysis at a time of the fall that occurred approximately 14 years ago. Last Myocardial Infarction Date:: 03/2016 History of Any Multi-Drug Resistant Organisms: None Reported Past Surgical History: Orthopedic Surgery, Tonsillectomy Additional Past Surgical History / Comment(s): Vasectomy, left knee surgery/ arthroscopy, facial surgery for a broken nose, neck surgery following a fall injury from a telephone pole and it's likely the patient had stabilization of his cervical spine, left carotid endarterectomy, peripheral vascular disease with insertion of vascular stents in lower extremities, hands surgery for a broken wrist, cholecystectomy, openheart surgery in 2017. Past Anesthesia/Blood Transfusion Reactions: Previous Problems w/ Anesthesia Additional Past Anesthesia/Blood Transfusion Reaction / Comment(s): WOKE UP DURING WRIST SX, MILD CLAUSTERPHOBIA Past Psychological History: No Psychological Hx Reported Smoking Status: Former smoker Past Alcohol Use History: None Reported Past Drug Use History: None Reported - Past Family History Father Family Medical History: Cancer Additional Family Medical History / Comment(s): STOMACH CANCER Mother Additional Family Medical History / Comment(s): POLIO Brother(s) Family Medical History: Myocardial Infarction ([place]) <Pato Herrera - Tino Filed: 12/25/16 06:41> General Exam Limitations: no limitations General appearance: alert, in no apparent distress Head exam: Present: atraumatic, normocephalic Eye exam: Present: normal appearance. Absent: scleral icterus, conjunctival injection Neck exam: Present: normal inspection, full ROM Respiratory exam: Present: wheezes, rhonchi, other (Frequent cough on exam). Absent: normal lung sounds bilaterally, respiratory distress, rales, stridor Cardiovascular Exam: Present: regular rate, normal rhythm, normal heart sounds. Absent: systolic murmur, diastolic murmur, rubs, gallop GI/Abdominal exam: Present: soft. Absent: distended, tenderness, guarding, rebound, mass Extremities exam: Present: normal inspection, normal capillary refill. Absent: pedal edema, calf tenderness Back exam: Present: normal inspection. Absent: CVA tenderness (R), CVA tenderness (L) Neurological exam: Present: alert, oriented X3, CN II-XII intact. Absent: motor sensory deficit Skin exam: Present: warm, dry, intact, normal color. Absent: rash <Pato Herrera - Last Filed: 12/25/16 06:41> Vital Signs 12/25/16 12/25/16 12/25/16 06:14 06:47 06:58 Temperature 97.2 F L Pulse Rate 89 88 Respiratory 26 H 24 Rate Blood Pressure 169/85 O2 Sat by Pulse 93 L Oximetry 12/25/16 12/25/16 12/25/16 07:08 07:24 08:33 Temperature Pulse Rate 84 87 83 Respiratory 16 16 Rate Blood Pressure 174/83 145/76 O2 Sat by Pulse 98 96 Oximetry 12/25/16 08:50 Temperature Pulse Rate 84 Respiratory Rate Blood Pressure O2 Sat by Pulse Oximetry Medical Decision Making - EKG Data -: EKG Interpreted by Nm EKG shows normal: sinus rhythm, axis (Normal), intervals (Normal), ST-T waves ( Normal) Rate: normal (Rate approximately 83 bpm) Interpretation: other (Possible old anterior infarct.) <Pato Herrera - Last Filed: 12/25/16 06:41> - Lab Data Result diagrams: 12/25/16 06:38 12/25/16 06:38 <Mynor Regalado - Last Filed: 12/25/16 09:08> - Lab Data Lab Results 12/25/16 12/25/16 12/25/16 Range/Units 06:35 06:38 06:38 WBC 11.7 H (3.8-10.6) k/uL RBC 4.12 L (4.30-5.90) m/uL Hgb 10.9 L (13.0-17.5) gm/dL Hct 36.4 L (39.0-53.0) % MCV 88.4 (80.0-100.0) fL MCH 26.5 (25.0-35.0) pg MCHC 30.0 L (31.0-37.0) g/dL RDW 15.1 (11.5-15.5) % Plt Count 340 (150-450) k/uL Neutrophils % 62 % Lymphocytes % 14 % Monocytes % 9 % Eosinophils % 11 % Basophils % 0 % Neutrophils # 7.3 (1.3-7.7) k/uL Lymphocytes # 1.6 (1.0-4.8) k/uL Monocytes # 1.1 H (0-1.0) k/uL Eosinophils # 1.2 H (0-0.7) k/uL Basophils # 0.0 (0-0.2) k/uL Hypochromasia Marked Sodium (137-145) mmol/L Potassium (3.5-5.1) mmol/L Chloride (98-107) mmol/L Carbon Dioxide (22-30) mmol/L Anion Gap mmol/L BUN (9-20) mg/dL Creatinine (0.66-1.25) mg/dL Est GFR (MDRD) Af Amer (>60 ml/min/1.73 sqM) Est GFR (MDRD) Non-Af (>60 ml/min/1.73 sqM) Glucose (74-99) mg/dL POC Glucose (mg/dL) 113 H (75-99) mg/dL POC Glu Job Molder ID [place], Audrey Plasma Lactic Acid Conrado 1.0 (0.7-2.0) mmol/L Calcium (8.4-10.2) mg/dL Total Bilirubin (0.2-1.3) mg/dL AST (17-59) U/L ALT (21-72) U/L Alkaline Phosphatase (38-126) U/L Ammonia 11 (<30) umol/L Troponin I (0.000-0.034) ng/mL Total Protein (6.3-8.2) g/dL Albumin (3.5-5.0) g/dL Urine Color Urine Appearance (Clear) Urine pH (5.0-8.0) Ur Specific [place] (1.001-1.035) Urine Protein (Negative) Urine Glucose (UA) (Negative) Urine Ketones (Negative) Urine Blood (Negative) Urine Nitrite (Negative) Urine Bilirubin (Negative) Urine Urobilinogen (<2.0) mg/dL Ur Leukocyte Esterase (Negative) Urine Opiates Screen (NotDetected) Ur Oxycodone Screen (NotDetected) Urine Methadone Screen (NotDetected) Ur Propoxyphene Screen (NotDetected) Ur Barbiturates Screen (NotDetected) U Tricyclic Antidepress (NotDetected) Ur Phencyclidine Scrn (NotDetected) Ur Amphetamines Screen (NotDetected) U Methamphetamines Scrn (NotDetected) U Benzodiazepines Scrn (NotDetected) Urine Cocaine Screen (NotDetected) U Marijuana (THC) Screen (NotDetected) 12/25/16 12/25/16 12/25/16 Range/Units 06:38 06:38 06:59 WBC (3.8-10.6) k/uL RBC (4.30-5.90) m/uL Hgb (13.0-17.5) gm/dL Hct (39.0-53.0) % MCV (80.0-100.0) fL MCH (25.0-35.0) pg MCHC (31.0-37.0) g/dL RDW (11.5-15.5) % Plt Count (150-450) k/uL Neutrophils % % Lymphocytes % % Monocytes % % Eosinophils % % Basophils % % Neutrophils # (1.3-7.7) k/uL Lymphocytes # (1.0-4.8) k/uL Monocytes # (0-1.0) k/uL Eosinophils # (0-0.7) k/uL Basophils # (0-0.2) k/uL Hypochromasia Sodium 140 (137-145) mmol/L Potassium 4.9 (3.5-5.1) mmol/L Chloride 108 H (98-107) mmol/L Carbon Dioxide 21 L (22-30) mmol/L Anion Gap 11 mmol/L BUN 27 H (9-20) mg/dL Creatinine 1.02 (0.66-1.25) mg/dL Est GFR (MDRD) Af Amer >60 (>60 ml/min/1.73 sqM) Est GFR (MDRD) Non-Af >60 (>60 ml/min/1.73 sqM) Glucose 114 H (74-99) mg/dL POC Glucose (mg/dL) (75-99) mg/dL POC Glu Job Molder ID Plasma Lactic Acid Conrado (0.7-2.0) mmol/L Calcium 9.1 (8.4-10.2) mg/dL Total Bilirubin 0.4 (0.2-1.3) mg/dL AST 27 (17-59) U/L ALT 29 (21-72) U/L Alkaline Phosphatase 70 (38-126) U/L Ammonia (<30) umol/L Troponin I 0.015 (0.000-0.034) ng/mL Total Protein 6.9 (6.3-8.2) g/dL Albumin 3.7 (3.5-5.0) g/dL Urine Color Yellow Urine Appearance Clear (Clear) Urine pH 5.0 (5.0-8.0) Ur Specific [place] 1.020 (1.001-1.035) Urine Protein Negative (Negative) Urine Glucose (UA) Negative (Negative) Urine Ketones Negative (Negative) Urine Blood Negative (Negative) Urine Nitrite Negative (Negative) Urine Bilirubin Negative (Negative) Urine Urobilinogen <2.0 (<2.0) mg/dL Ur Leukocyte Esterase Negative (Negative) Urine Opiates Screen Not Detected (NotDetected) Ur Oxycodone Screen Not Detected (NotDetected) Urine Methadone Screen Not Detected (NotDetected) Ur Propoxyphene Screen Not Detected (NotDetected) Ur Barbiturates Screen Not Detected (NotDetected) U Tricyclic Antidepress Not Detected (NotDetected) Ur Phencyclidine Scrn Not Detected (NotDetected) Ur Amphetamines Screen Not Detected (NotDetected) U Methamphetamines Scrn Not Detected (NotDetected) U Benzodiazepines Scrn Not Detected (NotDetected) Urine Cocaine Screen Not Detected (NotDetected) U Marijuana (THC) Screen Not Detected (NotDetected) Disposition <Pato Herrera - Last Filed: 12/25/16 06:41> <Mynor Regalado - Last Filed: 12/25/16 09:08> Clinical Impression: Slurred speech, Syncope and collapse, Altered mental status, COPD with acute exacerbation, Community acquired bacterial pneumonia Disposition: ADMITTED IP TO THIS [facility] Condition: Fair Referrals: Fer Godoy DO [Primary Care Provider] - 1-2 days
--- NOTE | 2016-12-25 07:05 | CT ---
EXAM: CT Head Without Intravenous Contrast CLINICAL HISTORY: Reason: altered mental status TECHNIQUE: Axial computed tomography images of the head/brain without intravenous contrast. CTDI is 3.74 mGy and DLP is 1138.07 mGy-cm. This CT exam was performed using one or more of the following dose reduction techniques: automated exposure control, adjustment of the mA and/or kV according to patient size, and/or use of iterative reconstruction technique. COMPARISON: 09/06/16 FINDINGS: Artifacts: Some motion artifact. Brain: Mild volume loss and small vessel disease. No hemorrhage. No edema. Ventricles: Unremarkable. No ventriculomegaly. Bones/joints: Unremarkable. No acute fracture. Soft tissues: Unremarkable. Sinuses: Mild paranasal sinus mucosal thickening, mostly in the left frontal, maxillary and ethmoid sinuses. Fluid levels in the left maxillary and frontal sinuses. Sinus disease, mostly new since the prior. Mastoid air cells: Unremarkable as visualized. No mastoid effusion. IMPRESSION: 1. No evidence of acute intracranial abnormality. 2. Involutional changes. 3. Paranasal sinus disease with fluid levels in the left maxillary and frontal sinuses. Mostly new since the prior study. Correlate for acute sinusitis.
[2016-12-25 07:10] LABS: Appearance,Urine Clear (Clear); Bilirubin,Urine Negative (Negative); Glucose,Urine (UA) Negative (Negative); Ketones,Urine Negative (Negative); Leukocyte Esterase,Urine Negative (Negative); Nitrite,Urine Negative (Negative); Protein,Urine Negative (Negative); UA Billing (MACRO vs. MICRO) CHEM; Urobilinogen,Urine <2.0 mg/dL (<2.0)
--- NOTE | 2016-12-25 07:11 | XR ---
EXAM: XR Chest, 1 View CLINICAL HISTORY: Reason: altered mental status TECHNIQUE: Frontal view of the chest. COMPARISON: Chest x-ray dated 11/22/2016 FINDINGS: Lungs: Left hilar and bibasilar opacities which may represent atelectasis versus an inflammatory or infectious process. Pleural space: Unremarkable. No pneumothorax. Heart: Unremarkable. No cardiomegaly. Mediastinum: Evidence of prior median sternotomy. Bones/joints: Degenerative changes of the osseous structures. IMPRESSION: Left hilar and medial bibasilar opacities which may represent atelectasis versus an inflammatory or infectious process.
[2016-12-25] MEDS ORDERED: cefTRIAXone IN SWFI 1,000 MG/10 ML SYRINGE IVP STA (07:32)
[2016-12-25] MEDS ORDERED: AZITHROMYCIN 500 MG in SODIUM CHLORIDE 0.9% 250 ML IVPB STA (08:31)
[2016-12-25] MEDS ORDERED: ALBUTEROL NEBULIZED 2.5 MG/3 ML INHALATION STA (08:31)
[2016-12-25] MEDS ORDERED: methylPREDNISolone SOD SUCCI 125 MG/2 ML VIAL IV STA (08:31)
[2016-12-25] MEDS ORDERED: MORPHINE SULFATE 10 MG/ML SYRINGE IVP PRN (08:31)
[2016-12-25] MEDS ORDERED: PNEUMONIA PROTOCOL UTILIZED 1 EACH MISC PO PRN (09:06)
[2016-12-25] MEDS: SODIUM CHLORIDE 0.9% 1,000 ML IV SCH ×2 (09:38→20:13)
[2016-12-25] MEDS: IPRATROPIUM-ALBUTEROL 3 ML NEB INHALATION SCH ×3 (11:12→20:08)
[2016-12-25] MEDS: IPRATROPIUM-ALBUTEROL 3 ML NEB INHALATION PRN (14:21)
[2016-12-25] MEDS ORDERED: methylPREDNISolone SOD SUCCI 125 MG/2 ML VIAL IV SCH (18:00)
[2016-12-25] MEDS ORDERED: ACETAMINOPHEN TAB 500 MG TAB PO PRN ×2 (18:13)
[2016-12-25] MEDS ORDERED: NITROGLYCERIN SL TABS 0.4 MG TAB SUBLINGUAL PRN (18:13)
[2016-12-25] MEDS ORDERED: diphenhydrAMINE 50 MG CAP PO PRN (18:25)
--- NOTE | 2016-12-25 18:29 | P.HPIM ---
History of Present Illness H&P Date: 12/25/16 Chief Complaint: altered mental status This is a 70-year-old male with a known history of hypertension, significant coronary artery disease refuses bypass graft in March 2016, valvular of heart disease, CHF with ejection fraction 35-30%, peripheral vascular disease- carotid endarterectomy and COPD, he was brought to the hospital by his after he was seen to be in acute confused state at around 2 AM this morning. The patient's was at bedside who elaborated on the story she stated that she had awoken her in the kitchen microwaving a cup in which she had peanut butter and when asked what he was doing he looked at her and stated that he was making tea, patient was unaware of his actions patient's 's stated that he had a blank stare, he then proceeded holding a Burke and standing and from occult closet and asked what he was doing he said he was looking for a MOPP but he was just standing there these actions concerned his so she brought him in to be evaluated. Further questioning the patient's stated that about a month ago the patient had gone to see his primary care physician at the [facility] in [facility] with complaints of insomnia that's when he was placed on Ambien to be taken nightly. 2 weeks after initiation of the medication the patient was noted to be having sleep walking episodes in which the had to redirect her back to bed on several occasions. The patient does not recall any of those events but does acknowledge that he does sleep walk.patient stated that ever since starting Ambien he has not felt right In the emergency room his temperature was 97.2 heart rate was 89 respirations 20 60 pressure is 169/85 O2 sats are 93% on room airhe had not yet taken his morning meds. Patient did not complain of any headaches or chest pain no dizziness or lightheadedness palpitations no neck stiffness. It was noted the patient in the past had a crush injury to his frontal sinus and which render him to have chronic sinusitis and he was diagnosed with post nasal drip induced cough and that his subsequent x-rays continued to show that he has bilateral upper lobe pneumonia and when the fact that it is indeed a chronic condition he's been treated for last 2 weeks with pneumonia he has not complaining of any fevers no excessive cough or excessive sputum production father than his baseline he does have a history of COPD. Review of Systems Constitutional: Reports as per HPI, Reports daytime sleepiness, Reports fatigue , Reports weakness, Denies fever, Denies weight gain Eyes: denies blurred vision, denies pain Ears, nose, mouth and throat: Reports hoarseness, Reports nasal congestion, Reports nasal discharge, Reports post-nasal drip, Reports voice changes, Denies dysphagia, Denies epistaxis, Denies headache, Denies neck fullness/pressure, Denies sinus pain, Denies sinus pressure, Denies vertigo Cardiovascular: Reports high blood pressure, Denies chest pain, Denies claudication, Denies edema, Denies leg edema, Denies lightheadedness, Denies orthopnea, Denies palpitations, Denies paroxysmal nocturnal dyspnea, Denies rapid heart beat, Denies shortness of breath, Denies syncope Respiratory: Reports cough with sputum, Reports snoring, Denies dyspnea, Denies excessive sputum, Denies hemoptysis, Denies home oxygen, Denies pain, Denies pain on inspiration, Denies pleurisy, Denies respiratory infections, Denies wheezing Gastrointestinal: Denies abdominal pain, Denies diarrhea, Denies nausea, Denies vomiting Musculoskeletal: Denies atrophy, Denies frequent falls, Denies gait dysfunction , Denies myalgias, Denies neck pain, Denies neck stiffness, Denies shooting arm pain, Denies shooting leg pain Neurological: Reports memory loss, Reports tremors, Denies aphasia, Denies change in smell/taste, Denies double vision, Denies head injury, Denies headaches, Denies hearing difficulties, Denies lack of coordination, Denies loss of vision, Denies migraines, Denies sensory deficit, Denies syncope, Denies tingling, Denies transient paralysis, Denies vertigo, Denies weakness, Denies visual changes Psychiatric: Reports change in sleep habits, Reports confusion, Reports insomnia , Reports sleep disturbances, Denies anxiety, Denies anxiety attacks, Denies change in appetite, Denies change in libido, Denies difficulty concentrating, Denies disorientation, Denies hallucinations, Denies hypersomnia, Denies irritability Hematologic/Lymphatic: Reports as per HPI Allergic/Immunologic: Reports as per HPI Past Medical History Past Medical History: Coronary Artery Disease (CAD), Heart Failure, COPD, GERD/ Reflux, Hyperlipidemia, Hypertension, Myocardial Infarction (AL), Osteoarthritis (OA), Pneumonia, Vascular Disorder Additional Past Medical History / Comment(s): Pt recently tx with ABX for possible pneumonia, past sternal fracture secondary to fall, history of neck injury secondary to fall as well as a sternal fracture and 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 Last Myocardial Infarction Date:: 03/2016 History of Any Multi-Drug Resistant Organisms: None Reported Past Surgical History: Heart Catheterization, Orthopedic Surgery, Tonsillectomy Additional Past Surgical History / Comment(s): 09/27/16 2 vessel CABG at [place], vasectomy, left knee surgery/arthroscopy, facial surgery for a broken nose, neck surgery following a fall injury from a telephone pole and it's likely the patient had stabilization of his cervical spine, left carotid endarterectomy, peripheral vascular disease with insertion of vascular stents in lower extremities, hands surgery for a broken wrist, cholecystectomy. Past Anesthesia/Blood Transfusion Reactions: Previous Problems w/ Anesthesia Additional Past Anesthesia/Blood Transfusion Reaction / Comment(s): WOKE UP DURING WRIST SX, MILD CLAUSTERPHOBIA Smoking Status: Former smoker - Past Family History Father Family Medical History: Cancer Additional Family Medical History / Comment(s): STOMACH CANCER Mother Additional Family Medical History / Comment(s): POLIO Brother(s) Family Medical History: Myocardial Infarction (AL) Medications and Allergies Home Medications Medication Instructions Recorded Confirmed Type Albuterol Nebulized [Ventolin 2.5 mg INHALATION RT-QID 04/09/16 12/25/16 History Nebulized] Albuterol Sulfate [Proventil Hfa] 2 puff INHALATION RT-QID PRN 04/09/16 History Budesonide/Formoterol Fumarate 2 puff INHALATION RT-BID 04/09/16 12/25/16 History [Symbicort 80-4.5 Mcg Inhaler] Nitroglycerin Sl Tabs [Nitrostat] 0.4 mg SUBLINGUAL Q5M PRN 04/09/16 12/25/16 History Omeprazole [PriLOSEC] 20 mg PO AC-BID 04/09/16 12/25/16 History Tiotropium 18 Mcg/Puff [Spiriva] 2 puff INHALATION RT-DAILY 05/20/16 12/25/16 History Aspirin 81 mg PO DAILY 09/07/16 12/25/16 Rx Atorvastatin [Lipitor] 40 mg PO DAILY 11/22/16 12/25/16 History Clopidogrel Bisulfate [Plavix] 75 mg PO DAILY 11/22/16 12/25/16 History Furosemide [Lasix] 40 mg PO BID@0800,1600 11/22/16 12/25/16 History Isosorbide Mononitrate ER [Imdur] 30 mg PO DAILY 11/22/16 12/25/16 History Metoprolol Tartrate [Lopressor] 50 mg PO BID 11/22/16 12/25/16 History Potassium Chloride [Klor-Con 10] 10 meq PO BID 11/22/16 12/25/16 History Acetaminophen Tab [Tylenol Tab] 1,000 mg PO Q6HR PRN 12/25/16 12/25/16 History Acetaminophen/Diphenhydramine 2 tab PO HS PRN 12/25/16 12/25/16 History [Tylenol PM 500-25mg] Ipratropium Nebulized [Atrovent 0.5 mg INHALATION RT-QID 12/25/16 12/25/16 History Nebulized] L.acidoph,Paracasei, B.lactis 1 cap PO DAILY 12/25/16 12/25/16 History [Probiotic] Multivitamins, Thera [Multivitamin 1 tab PO DAILY 12/25/16 12/25/16 History (formulary)] Allergies Allergy/AdvReac Type Severity Reaction Status Date / Time Iodinated Contrast- Oral and AdvReac Itching Verified 12/25/16 08:29 IV Dye Physical Exam Vitals: Vital Signs Temp Pulse Pulse Resp BP BP Pulse Ox 12/25/16 15:00 98.2 F 105 H 20 139/65 94 L 12/25/16 14:59 98 F 97 20 164/69 94 L 12/25/16 14:33 88 12/25/16 14:24 88 12/25/16 12:44 95 12/25/16 09:34 97.6 F 96 18 142/72 98 12/25/16 09:14 92 12/25/16 09:06 98 12/25/16 08:50 84 12/25/16 08:33 83 16 145/76 96 12/25/16 07:24 87 16 174/83 98 12/25/16 07:08 84 12/25/16 06:58 88 12/25/16 06:47 24 12/25/16 06:14 97.2 F L 89 26 H 169/85 93 L Intake and Output 12/25/16 12/25/16 12/25/16 06:59 14:59 22:59 Other: # Voids 1 3 Weight 72.575 kg PHYSICAL EXAMINATION: VITAL SIGNS; patient afebrile vital signs stable GENERAL APPEARANCE: sitting up in bed with feet over edge of the bed, no acute distress.he's AA O 3. he is calm and cooperative nontoxic appearing he speaks in full sentences he does have a somewhat on the higher pitched voice he looks stated age HEENT:normocephalic atraumatic pupils equal round and reactive to light extraocular muscles are intact conjunctiva is clear sclerae white oral mucosa is pink moist free of anyposterior pharynx is hyperemia lesions conjunctiva. NECK; supple, no JVD.no carotid bruits there is an old CEA on the left RESPIRATORY: patient has diffuse adventitious lung sounds with fine rales throughout however no wheezing or rhonchus appreciated he has symmetrical chest wall expansion no use of accessory muscles of respiration no conversational dyspnea notedthere is noted a sternotomy scar that is well approximated noted has since nontender to the touch CARDIOVASCULAR: regular S1, S2, no edemano murmurs rubs or gallops. GI: abdomen soft, nontender, positive bowel soundsin all 4 quadrants no rebound or guarding no abdominal bruit. PSYCHIATRIC: alert and oriented -3. Affect normal. neurological exam: Cranial nerves II through XII grossly intact no focal deficits face is symmetrical no droop noted dysarthria speech is full coherent and contextual. Results CBC & Chem 7: 12/25/16 06:38 12/25/16 06:38 Labs: Abnormal Lab Results - Last 24 Hours (Table) 12/25/16 12/25/16 12/25/16 Range/Units 06:35 06:38 06:38 WBC 11.7 H (3.8-10.6) k/uL RBC 4.12 L (4.30-5.90) m/uL Hgb 10.9 L (13.0-17.5) gm/dL Hct 36.4 L (39.0-53.0) % MCHC 30.0 L (31.0-37.0) g/dL Monocytes # 1.1 H (0-1.0) k/uL Eosinophils # 1.2 H (0-0.7) k/uL Chloride 108 H (98-107) mmol/L Carbon Dioxide 21 L (22-30) mmol/L BUN 27 H (9-20) mg/dL Glucose 114 H (74-99) mg/dL POC Glucose (mg/dL) 113 H (75-99) mg/dL Chest x-ray: report reviewed Thrombosis Risk Factor Assmnt - Choose All That Apply Any of the Below Risk Factors Present?: Yes Each Factor Represents 1 point: Abnormal pulmonary function (COPD), Serious lung disease incl. pneumonia (< 1month) Other Risk Factors: Yes Each Risk Factor Represents 2 Points: Age 61-74 years Other congenital or acquired thrombophilia - If yes, enter type in comment: No Thrombosis Risk Factor Assessment Total Risk Factor Score: 4 Thrombosis Risk Factor Assessment Level: Moderate Risk Assessment and Plan Assessment: #1 acute toxic encephalopathy secondary to medications side effects, notably a use of Ambienfor his insomnia. this medication is also be a medication on the beers criteria. Its normal side effects to include hallucinations disorientation's disequilibrium psychomotor retardation confusion insomnia andabnormal dreamsfor this reason this medication will be held patient to be monitored,history is mentation is unlikely due to metabolic causes #2 chronic sinusitis secondary to prior frontal sinus fractures. Patient has also have postnasal drip with chronic cough for many years he presented afebrile and no leukocytosis and no change in sputum coloration or amount of production he denies any shortness of breath he did not have any desaturations, for that reason treatment for pneumonia as this is unlikely will be discontinued patient does have follow-up with ENT in the upcoming weeks. #3 history of coronary artery disease status post CABG patient's continued home medications-patient's family requesting medication for his heart to be reviewed and possibly establish care they are new to this area. #4 peripheral vascular disease with history of carotid endarterectomy on the left side- #5 chronic systolic and diastolic congestive heart failure no exacerbation at this time #6GERD DVT and GI prophylaxis per protocol Further patient to follow up on his overall progress
[2016-12-25] MEDS: POTASSIUM CHLORIDE ER 10 MEQ TAB.ER.PRT PO SCH (20:16)
[2016-12-25] MEDS: METOPROLOL TARTRATE 50 MG TAB PO SCH (20:16)
[2016-12-26] MEDS: IPRATROPIUM-ALBUTEROL 3 ML NEB INHALATION PRN (00:09)
[2016-12-26 07:07] LABS: CH 26.4; CHCM 29.7; HCT 32.3 % (39.0-53.0); HDW 3.17; Hypochromasia Marked; MCHC 29.1 g/dL (31.0-37.0); MCV 89.2 fL (80.0-100.0); Mean Platelet Volume 7.5; RBC 3.62 m/uL (4.30-5.90); RDW 15.2 % (11.5-15.5); WBC 10.4 k/uL (3.8-10.6)
[2016-12-26 07:12] LABS: HGB 9.4 gm/dL (13.0-17.5)
[2016-12-26] MEDS: IPRATROPIUM-ALBUTEROL 3 ML NEB INHALATION SCH ×2 (07:13→11:19)
[2016-12-26 07:27] LABS: ALT 35 U/L (21-72); AST 23 U/L (17-59); Alkaline Phosphatase 65 U/L (38-126); Anion Gap 9 mmol/L; Blood Urea Nitrogen 20 mg/dL (9-20); Calcium 9.1 mg/dL (8.4-10.2); Carbon Dioxide 23 mmol/L (22-30); Chloride 108 mmol/L (98-107); Glucose 137 mg/dL (74-99); Magnesium 1.8 mg/dL (1.6-2.3); Non-African American GFR(MDRD) >60 (>60 ml/min/1.73 sqM); Phosphorus 3.5 mg/dL (2.5-4.5); Potassium 4.6 mmol/L (3.5-5.1); Sodium 140 mmol/L (137-145); Total Bilirubin 0.2 mg/dL (0.2-1.3); Total Protein 6.7 g/dL (6.3-8.2)
[2016-12-26] MEDS ORDERED: PANTOPRAZOLE 40 MG TABLET PO SCH (07:30)
[2016-12-26 08:00] VITALS: BP 162/84; RESP 20; TEMP 97.9
[2016-12-26] MEDS ORDERED: cefTRIAXone IN SWFI 1,000 MG/10 ML SYRINGE IVP SCH (08:00)
[2016-12-26] MEDS ORDERED: FUROSEMIDE 40 MG TAB PO SCH (08:00)
[2016-12-26] MEDS: POTASSIUM CHLORIDE ER 10 MEQ TAB.ER.PRT PO SCH (08:30)
[2016-12-26] MEDS: METOPROLOL TARTRATE 50 MG TAB PO SCH (08:31)
[2016-12-26] MEDS: SODIUM CHLORIDE 0.9% 1,000 ML IV SCH (08:32)
[2016-12-26] MEDS ORDERED: ENOXAPARIN 40 MG/0.4 ML SYRINGE SQ SCH (09:00)
[2016-12-26] MEDS ORDERED: ASPIRIN 81 MG PO SCH (09:00)
[2016-12-26] MEDS ORDERED: AZITHROMYCIN 500 MG in SODIUM CHLORIDE 0.9% 250 ML IVPB SCH (09:00)
[2016-12-26] MEDS ORDERED: ISOSORBIDE MONONITRATE ER 30 MG TAB.ER.24H PO SCH (09:00)
[2016-12-26] MEDS ORDERED: CLOPIDOGREL 75 MG TAB PO SCH (09:00)
[2016-12-26] MEDS ORDERED: ATORVASTATIN 40 MG TAB PO SCH (09:00)
[2016-12-26] MEDS ORDERED: LACTOBACILLUS ACIDOPH & BULGAR 1 EACH PACKET PO SCH (09:00)
--- NOTE | 2016-12-26 09:31 | XR ---
EXAMINATION TYPE: XR chest 2V DATE OF EXAM: 12/26/2016 COMPARISON: Prior chest x-ray 12/25/2016, chest CT 11/22/2016 HISTORY: Pneumonia TECHNIQUE: Frontal and lateral views of the chest are obtained. FINDINGS: Patient is post median sternotomy. Hyperinflation may be indicative of underlying COPD. So me improved aeration is noted in the lingula. There is no evident pneumothorax. Heart size is stable. No evident effusion. IMPRESSION: Improvement in aeration. Postop changes and cardiomegaly.
[2016-12-26] MEDS ORDERED: MULTIVITAMINS, THERA 1 EACH TAB PO SCH (12:00)
[2016-12-26] MEDS ORDERED: LISINOPRIL 5 MG TAB PO SCH (12:00)
--- NOTE | 2016-12-26 13:44 | P.CRDCN ---
History of Present Illness Consult date: 12/26/16 History of present illness: This is a 71-year-old male past medical history significant for coronary artery disease with subsequent 2 vessel CABG at [facility] , hypertension, COPD, hyperlipidemia and peripheral vascular disease. He initially underwent cardiac catheterization per Dr. Martinez March 2016 which revealed severely calcified coronary arteries with severe triple vessel disease. At that time he was evaluated per cardiothoracic surgery declined due to his pulmonary status. He subsequently into the [facility] and underwent a two-vessel bypass. Those records are not available at this time, we will request those for evaluation. In March he also underwent a ELTON which revealed moderate mitral regurgitation and severely decreased LV function with an ejection fraction of 30-35%. Subsequent echocardiogram in August of this year revealed improved LV function with EF of 40-45% and mild MR. Although this was a suboptimal study. We have been asked to see this patient in consultation for a complaint of chest pressure this morning. Apparently the patient had just received DuoNeb breathing treatment and was sitting on the edge of his bed when he felt a tight sensation across his chest that went up into his neck. He described it as his neck felt very swollen and tight. At the time of this event his heart rate was 125 and regular per nursing staff. He received sublingual nitroglycerin and the pain subsided. He states he has experienced feelings this in the past prior to his bypass surgery. He was told by his primary bungy jump master he should take a nitroglycerin and this should subside. He denies associated symptoms of shortness of breath, dizziness, palpitations, diaphoresis, nausea or vomiting. He has been up ambulating the halls and around his room with no symptoms with his mild exertion. He has followed up with his primary bungy jump master, Dr. Pablo, one time since his bypass surgery. He is interested in following with a bungy jump master here in town for more convenience. EKG on arrival shows sinus mechanism with nonspecific abnormalities indicative of an old anterior infarction. Pressure 162/84 with a heart rate of 105. Hemoglobin 9.4, platelets 325, potassium 4.6, mean exam 1.8, BUN 20, creatinine 0.71, cardiac enzymes negative 2. Current cardiac medications include Lasix 40 mg twice a day, potassium 10 mg twice a day, Lopressor 50 mg twice a day, Imdur 30 mg daily, Plavix 75 mg daily , Lipitor 40 mg daily, aspirin 81 mg daily. Review of Systems CONSTITUTIONAL: Denies fever. Denies chills. EYES: Denies blurred vision. Denies vision changes. Denies eye pain. EARS, NOSE, MOUTH & THROAT: Denies headache. Denies sore throat. Denies ear pain. CARDIOVASCULAR: Complains of one episode of chest tightness, resolved with sublingual nitroglycerin. Denies shortness of breath. Denies orthopnea. Denies PND. Denies palpitations. RESPIRATORY: Complains of ongoing cough. GASTROINTESTINAL: Denies abdominal pain. Denies diarrhea. Denies constipation. Denies nausea. Denies vomiting. MUSCULOSKELETAL: Denies myalgias. INTEGUMENTARY: Denies pruitis. Denies rash. NEUROLOGIC: Denies numbness. Denies tingling. Denies weakness. PSYCHIATRIC: Denies anxiety. Denies depression. ENDOCRINE: Denies fatigue. Denies weight change. Denies polydipsia. Denies polyurina. GENITOURINARY: Denies burning, hematuria or urgency with micturation. HEMATOLOGIC: Denies history of anemia. Denies bleeding. Past Medical History Past Medical History: Coronary Artery Disease (CAD), Heart Failure, COPD, GERD/ Reflux, Hyperlipidemia, Hypertension, Myocardial Infarction (CO), Osteoarthritis (OA), Pneumonia, Vascular Disorder Additional Past Medical History / Comment(s): Pt recently tx with ABX for possible pneumonia, past sternal fracture secondary to fall, history of neck injury secondary to fall as well as a sternal fracture and 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 Last Myocardial Infarction Date:: 03/2016 History of Any Multi-Drug Resistant Organisms: None Reported Past Surgical History: Heart Catheterization, Orthopedic Surgery, Tonsillectomy Additional Past Surgical History / Comment(s): 09/27/16 2 vessel CABG at [facility], vasectomy, left knee surgery/arthroscopy, facial surgery for a broken nose, neck surgery following a fall injury from a telephone pole and it's likely the patient had stabilization of his cervical spine, left carotid endarterectomy, peripheral vascular disease with insertion of vascular stents in lower extremities, hands surgery for a broken wrist, cholecystectomy. Past Anesthesia/Blood Transfusion Reactions: Previous Problems w/ Anesthesia Additional Past Anesthesia/Blood Transfusion Reaction / Comment(s): WOKE UP DURING WRIST SX, MILD CLAUSTERPHOBIA Smoking Status: Former smoker - Past Family History Father Family Medical History: Cancer Additional Family Medical History / Comment(s): STOMACH CANCER Mother Additional Family Medical History / Comment(s): POLIO Brother(s) Family Medical History: Myocardial Infarction (CO) Medications and Allergies Home Medications Medication Instructions Recorded Confirmed Type Albuterol Nebulized [Ventolin 2.5 mg INHALATION RT-QID 04/09/16 12/25/16 History Nebulized] Albuterol Sulfate [Proventil Hfa] 2 puff INHALATION RT-QID PRN 04/09/16 History Budesonide/Formoterol Fumarate 2 puff INHALATION RT-BID 04/09/16 12/25/16 History [Symbicort 80-4.5 Mcg Inhaler] Nitroglycerin Sl Tabs [Nitrostat] 0.4 mg SUBLINGUAL Q5M PRN 04/09/16 12/25/16 History Omeprazole [PriLOSEC] 20 mg PO AC-BID 04/09/16 12/25/16 History Tiotropium 18 Mcg/Puff [Spiriva] 2 puff INHALATION RT-DAILY 05/20/16 12/25/16 History Aspirin 81 mg PO DAILY 09/07/16 12/25/16 Rx Atorvastatin [Lipitor] 40 mg PO DAILY 11/22/16 12/25/16 History Clopidogrel Bisulfate [Plavix] 75 mg PO DAILY 11/22/16 12/25/16 History Furosemide [Lasix] 40 mg PO BID@0800,1600 11/22/16 12/25/16 History Isosorbide Mononitrate ER [Imdur] 30 mg PO DAILY 11/22/16 12/25/16 History Metoprolol Tartrate [Lopressor] 50 mg PO BID 11/22/16 12/25/16 History Potassium Chloride [Klor-Con 10] 10 meq PO BID 11/22/16 12/25/16 History Acetaminophen Tab [Tylenol Tab] 1,000 mg PO Q6HR PRN 12/25/16 12/25/16 History Acetaminophen/Diphenhydramine 2 tab PO HS PRN 12/25/16 12/25/16 History [Tylenol PM 500-25mg] Ipratropium Nebulized [Atrovent 0.5 mg INHALATION RT-QID 12/25/16 12/25/16 History Nebulized] L.acidoph,Paracasei, B.lactis 1 cap PO DAILY 12/25/16 12/25/16 History [Probiotic] Multivitamins, Thera [Multivitamin 1 tab PO DAILY 12/25/16 12/25/16 History (formulary)] Allergies Allergy/AdvReac Type Severity Reaction Status Date / Time Iodinated Contrast- Oral and AdvReac Itching Verified 12/25/16 08:29 IV Dye Physical Exam Vitals: Vital Signs Temp Pulse Pulse Resp BP Pulse Ox 12/26/16 11:32 98 12/26/16 11:21 98 12/26/16 07:14 106 H 12/26/16 07:07 106 H 12/26/16 07:00 97.9 F 105 H 20 162/84 95 12/26/16 00:29 88 12/26/16 00:10 100 12/26/16 00:00 16 12/25/16 20:28 104 H 12/25/16 20:15 102 H 16 133/69 98 12/25/16 20:08 100 12/25/16 16:00 105 H 20 12/25/16 15:00 98.2 F 105 H 20 139/65 94 L 12/25/16 14:59 98 F 97 20 164/69 94 L 12/25/16 14:33 88 12/25/16 14:24 88 Intake and Output 12/25/16 12/26/16 12/26/16 22:59 06:59 14:59 Intake Total 1380 1390 Balance 1380 1390 Intake: Intake, IV Titration 800 800 Amount Sodium Chloride 0.9% 1, 800 800 000 ml @ 100 mls/hr IV . Q10H MAYUR Rx#:[id number] Oral 580 590 Other: Voiding Method Toilet # Voids 3 2 Weight 72.575 kg GENERAL: This is a 71-year-old male in no apparent distress at the time of my examination. HEENT: Head is atraumatic, normocephalic. Pupils are equal, round. Sclerae anicteric. Conjunctivae are clear. Mucous membranes of the mouth are moist. Neck is supple. There is no jugular venous distention. No carotid bruit is heard. LUNGS: Faint expiratory wheezes throughout, no rales or rhonchi. No chest wall tenderness is noted on palpation or with deep breathing. Diminished HEART: Regular rate and rhythm with murmur at the apex, no rubs or gallops. S1 and S2 heard. ABDOMEN: Soft, nontender. Bowel sounds are heard. No organomegaly noted. EXTREMITIES: 1+ peripheral pulses with no evidence of peripheral edema and no calf tenderness noted. NEUROLOGIC: Patient is awake, alert and oriented x3. Results 12/26/16 06:55 12/26/16 06:55 Cardiac Enzymes 12/26/16 12/26/16 Range/Units 06:55 09:05 AST 23 (17-59) U/L Troponin I 0.014 (0.000-0.034) ng/mL CBC 12/26/16 Range/Units 06:55 WBC 10.4 (3.8-10.6) k/uL RBC 3.62 L (4.30-5.90) m/uL Hgb 9.4 L D (13.0-17.5) gm/dL Hct 32.3 L (39.0-53.0) % Plt Count 325 (150-450) k/uL Comprehensive Metabolic Panel 12/26/16 Range/Units 06:55 Sodium 140 (137-145) mmol/L Potassium 4.6 (3.5-5.1) mmol/L Chloride 108 H (98-107) mmol/L Carbon Dioxide 23 (22-30) mmol/L BUN 20 (9-20) mg/dL Creatinine 0.71 (0.66-1.25) mg/dL Glucose 137 H (74-99) mg/dL Calcium 9.1 (8.4-10.2) mg/dL AST 23 (17-59) U/L ALT 35 (21-72) U/L Alkaline Phosphatase 65 (38-126) U/L Total Protein 6.7 (6.3-8.2) g/dL Albumin 3.5 (3.5-5.0) g/dL Current Medications Generic Name Dose Route Start Last Admin Trade Name Freq PRN Reason Stop Dose Admin Acetaminophen 1,000 mg 12/25/16 18:13 Tylenol Tab PO Q6HR PRN Pain Acetaminophen 1,000 mg 12/25/16 18:13 12/25/16 23:08 Tylenol Tab PO 1,000 mg HS PRN Administration Sleep/Pain Albuterol/Ipratropium 3 ml 12/25/16 12:00 12/26/16 11:19 Duoneb 0.5 Mg-3 Mg/3 Ml Soln INHALATION 3 ml RT-QID MAYUR Administration Albuterol/Ipratropium 3 ml 12/25/16 09:16 12/26/16 00:09 Duoneb 0.5 Mg-3 Mg/3 Ml Soln INHALATION 3 ml RT-Q2H PRN Administration Shortness Of Breath Or Wheezing Aspirin 81 mg 12/26/16 09:00 12/26/16 08:31 Aspirin PO 81 mg DAILY MAYUR Administration Atorvastatin Calcium 40 mg 12/26/16 09:00 12/26/16 08:30 Lipitor PO 40 mg DAILY MAYUR Administration Clopidogrel Bisulfate 75 mg 12/26/16 09:00 12/26/16 08:30 Plavix PO 75 mg DAILY MAYUR Administration Diphenhydramine HCl 50 mg 12/25/16 18:25 12/25/16 23:08 Benadryl PO 50 mg HS PRN Administration Sleep/Pain Enoxaparin Sodium 40 mg 12/26/16 09:00 12/26/16 08:30 Lovenox SQ 40 mg DAILY MAYUR Administration Furosemide 40 mg 12/27/16 09:00 Lasix PO DAILY [facility] Sodium Chloride 1,000 mls @ 100 mls/hr 12/25/16 09:15 12/26/16 08:32 Saline 0.9% IV Not Given .Q10H MAYUR Isosorbide Mononitrate 30 mg 12/26/16 09:00 12/26/16 08:30 Imdur PO 30 mg DAILY MAYUR Administration Lactobacillus Acidoph/Bulgaricus 1 each 12/26/16 09:00 12/26/16 08:31 Lactinex PO 1 each DAILY MAYUR Administration Lisinopril 5 mg 12/27/16 09:00 Zestril PO DAILY MAYUR Metoprolol Tartrate 50 mg 12/25/16 21:00 12/26/16 08:31 Lopressor PO 50 mg BID MAYUR Administration Miscellaneous Information 1 each 12/25/16 09:06 Pneumonia Protocol Utilized PO ONCE PRN Per Protocol Morphine Sulfate 4 mg 12/25/16 08:31 Morphine Sulfate (Inj) IVP Q4HR PRN Pain Multivitamins 1 each 12/26/16 12:00 Theragran PO DAILY@1200 [facility] Nitroglycerin 0.4 mg 12/25/16 18:13 12/26/16 08:48 Nitrostat SUBLINGUAL 0.4 mg Q5M PRN Administration Chest Pain Pantoprazole Sodium 40 mg 12/26/16 07:30 12/26/16 08:30 Protonix PO 40 mg AC-BRKFST MAYUR Administration Potassium Chloride 10 meq 12/25/16 21:00 12/26/16 08:30 K-Dur 10 PO 10 meq BID MAYUR Administration Intake and Output 12/25/16 12/26/16 12/26/16 22:59 06:59 14:59 Intake Total 1380 1390 Balance 1380 1390 Intake: Intake, IV Titration 800 800 Amount Sodium Chloride 0.9% 1, 800 800 000 ml @ 100 mls/hr IV . Q10H MAYUR Rx#:[id number] Oral 580 590 Other: Voiding Method Toilet # Voids 3 2 Weight 72.575 kg 12/26/16 06:55 12/26/16 06:55 Assessment and Plan Assessment: ASSESSMENT 1. Anginal like chest pain, relieved with sublingual nitroglycerin 2. History of CAD status post 2 vessel CABG September 2016, those records have been requested from [facility] 3. History of systolic heart failure with poor LV function 4. Essential hypertension 5. Dyslipidemia 6. Peripheral vascular disease 7. COPD 8. Carotid artery disease PLAN Lasix can be decreased to daily dosing, add lisinopril to daily regimen in the presence of systolic heart failure with poor LV function. Continue with other cardiac medication as previously ordered. Repeat BMP in the morning if he is still here in the hospital. From cardiology perspective he is stable for discharge home to follow-up with Dr. Martinez in one week. He has been advised of the new medications added to his regimen and he is in agreement and has understanding for rationale for his medications. Nurse Practitioner note has been reviewed, I agree with a documented findings and plan of care. Patient was seen and examined.
--- NOTE | 2016-12-26 14:05 | P.DS ---
Providers Date of admission: 12/25/16 09:06 Expected date of discharge: 12/26/16 Attending physician: Dinah Radford Consults: 12/25/16 14:24 Consult Physician Routine Consulting Provider: Seth Mendez Consult Reason/Comments: CAD Do you want consulting provider notified?: Yes, Notify in am 12/26/16 09:18 Consult Physician Urgent Consulting Provider: Best Martinez Consult Reason/Comments: Recent CABG / Chest pressure relieved with SL nitro Do you want consulting provider notified?: Yes Primary care physician: [facility] Course: This is a 70-year-old male with a known history of hypertension, significant coronary artery disease refuses bypass graft in March 2016, valvular of heart disease, CHF with ejection fraction 35-30%, peripheral vascular disease- carotid endarterectomy and COPD, he was brought to the hospital by his after he was seen to be in acute confused state she stated that she had awoken her in the kitchen microwaving a cup in which he had peanut butter and when asked what he was doing he looked at her and stated that he was making tea , patient was unaware of his actions patient's 's stated that he had a blank stare, he then proceeded 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 it was noted that he was recently starte don Poliien for insomnia 4 weeks prior and has been having sleep walking episodes frequently since than, In the emergency room his temperature was 97.2 heart rate was 89 respirations 20 60 pressure is 169/85 O2 sats are 93% It was noted the patient in the past had a crush injury to his frontal sinus and which render him to have chronic sinusitis and he was diagnosed with post nasal drip induced cough and that his subsequent x-rays continued to show that he has bilateral upper lobe pneumonia and when the fact that it is indeed a chronic condition he's been treated for last 2 weeks with pneumonia. He did not have any clinical signs of an acute infection, he was given a dose of abx in the ER and they were held upon admission to the floor. he was observed on the floor, is mentation returned to baseline per and did not have any more episodes of confusion, he was instructed to thold the ambien and to follow up with PCP for further management of insomnia. the morning of discharge patient expercience angia type pain with tachy cardia right after getting his scheduled breathing treatments, he did take 1 nitro with relief of symptoms, Cardiology was consult for further rec and when they evaluated him they added Lisinopril and decreased Lasix to daily and will follow up with him in the outpatient. he was cleared for discharged. Assessment: #1 acute toxic encephalopathy secondary to medications side effects, notably a use of Ambien for his insomnia. this medication is also be a medication on the beers criteria. Its normal side effects to include hallucinations disorientation's disequilibrium psychomotor retardation confusion insomnia and abnormal dreams for this reason this medication will be held patient to be monitored,history is mentation is unlikely due to metabolic causes #2 chronic sinusitis secondary to prior frontal sinus fractures. Patient has also have postnasal drip with chronic cough for many years he presented afebrile and no leukocytosis and no change in sputum coloration or amount of production he denies any shortness of breath he did not have any de-saturations , #3 history of coronary artery disease status post CABG patient's continued home medications- patient to follow up with Cardiology in the outpatient #4 peripheral vascular disease with history of carotid endarterectomy on the left side- #5 chronic systolic and diastolic congestive heart failure no exacerbation at this time #[id number] Patient Condition at Discharge: Fair Plan - Discharge Summary Discharge Rx Participant: No New Discharge Prescriptions: New Furosemide [Lasix] 40 mg PO DAILY tab Lisinopril [Zestril] 5 mg PO DAILY #30 tab Continue Omeprazole [PriLOSEC] 20 mg PO AC-BID Budesonide/Formoterol Fumarate [Symbicort 80-4.5 Mcg Inhaler] 2 puff INHALATION RT-BID Albuterol Nebulized [Ventolin Nebulized] 2.5 mg INHALATION RT-QID Nitroglycerin Sl Tabs [Nitrostat] 0.4 mg SUBLINGUAL Q5M PRN PRN Reason: Chest Pain Albuterol Sulfate [Proventil Hfa] 2 puff INHALATION RT-QID PRN PRN Reason: Shortness Of Breath Tiotropium 18 Mcg/Puff [Spiriva] 2 puff INHALATION RT-DAILY Aspirin 81 mg PO DAILY Isosorbide Mononitrate ER [Imdur] 30 mg PO DAILY Atorvastatin [Lipitor] 40 mg PO DAILY Clopidogrel Bisulfate [Plavix] 75 mg PO DAILY Metoprolol Tartrate [Lopressor] 50 mg PO BID Potassium Chloride [Klor-Con 10] 10 meq PO BID Acetaminophen Tab [Tylenol] 1,000 mg PO Q6HR PRN PRN Reason: Pain Acetaminophen/Diphenhydramine [Tylenol PM 500-25mg] 2 tab PO HS PRN PRN Reason: Sleep/Pain Ipratropium Nebulized [Atrovent Nebulized] 0.5 mg INHALATION RT-QID L.acidoph,Paracasei, B.lactis [Probiotic] 1 cap PO DAILY Multivitamins, Thera [Multivitamin (formulary)] 1 tab PO DAILY Discontinued Furosemide [Lasix] 40 mg PO BID@0800,1600 Discharge Medication List Albuterol Nebulized [Ventolin Nebulized] 2.5 mg INHALATION RT-QID 04/09/16 [ History] Albuterol Sulfate [Proventil Hfa] 2 puff INHALATION RT-QID PRN 04/09/16 [History ] Budesonide/Formoterol Fumarate [Symbicort 80-4.5 Mcg Inhaler] 2 puff INHALATION RT-BID 04/09/16 [History] Nitroglycerin Sl Tabs [Nitrostat] 0.4 mg SUBLINGUAL Q5M PRN 04/09/16 [History] Omeprazole [PriLOSEC] 20 mg PO AC-BID 04/09/16 [History] Tiotropium 18 Mcg/Puff [Spiriva] 2 puff INHALATION RT-DAILY 05/20/16 [History] Aspirin 81 mg PO DAILY 09/07/16 [Rx] Atorvastatin [Lipitor] 40 mg PO DAILY 11/22/16 [History] Clopidogrel Bisulfate [Plavix] 75 mg PO DAILY 11/22/16 [History] Isosorbide Mononitrate ER [Imdur] 30 mg PO DAILY 11/22/16 [History] Metoprolol Tartrate [Lopressor] 50 mg PO BID 11/22/16 [History] Potassium Chloride [Klor-Con 10] 10 meq PO BID 11/22/16 [History] Acetaminophen Tab [Tylenol] 1,000 mg PO Q6HR PRN 12/25/16 [History] Acetaminophen/Diphenhydramine [Tylenol PM 500-25mg] 2 tab PO HS PRN 12/25/16 [ History] Ipratropium Nebulized [Atrovent Nebulized] 0.5 mg INHALATION RT-QID 12/25/16 [ History] L.acidoph,Paracasei, B.lactis [Probiotic] 1 cap PO DAILY 12/25/16 [History] Multivitamins, Thera [Multivitamin (formulary)] 1 tab PO DAILY 12/25/16 [History ] Furosemide [Lasix] 40 mg PO DAILY tab 12/26/16 [Rx] Lisinopril [Zestril] 5 mg PO DAILY #30 tab 12/26/16 [Rx] Follow up Appointment(s)/Referral(s): Best Martinez MD [STAFF PHYSICIAN] - 2 Weeks Fer Godoy DO [Primary Care Provider] - 1-2 days Activity/Diet/Wound Care/Special Instructions: Cardiac Diet HOLD Ambien Discharge Disposition: HOME SELF-CARE
[2016-12-26 14:59] VITALS: PULSE 105
--- NOTE | 2016-12-26 15:00 | P.CNPUL ---
History of Present Illness Consult date: 12/26/16 Requesting physician: Dinah Radford Reason for consult: other Chief complaint: acute mental status change, confusion History of present illness: David is a 71-year-old white male patient with past medical history of COPD, CHF , CAD with history of CABG, hypertension and peripheral vascular disease, who presented to the emergency department on 12/2016 at about 6 AM with his , with a chief complaint of altered mental status and confusion, fever and chills. Patient's is present at the bedside, and reports patient was recently started on Ambien for his difficulty with insomnia about a month ago. In the early hours of morning 12/25/2016 at 2:00 in the morning she woke up to her trying to make tea with peanut butter and acting very bizarre. After she convinced him to go back to bed, he continued to speak to people that were not there, which prompted the spouse to bring him to the emergency room department for evaluation. Patient is chronically short of breath due to his history of COPD however there were no worsening in his level of dyspnea, no chest congestion, no wheezing, or any signs of respiratory distress with this episode of illness. denied any headaches, chest pain, dizziness or neck stiffness. 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 CT brain from 12/25/2016 shows no evidence of acute intracranial abnormality, mild paranasal sinus mucosal thickening, mostly in the left frontal maxillary and ethmoid sinuses, With fluid levels in the left maxillary and frontal sinuses. On presentation to the emergency department patient was afebrile, O2 sat 93% on room air, EKG showed normal sinus rhythm with a rate of 83 BPM. Chest x-rays from 12/25/2016 and 12/26/2016 shows left hilar and medial bibasilar opacities. Patient was recently hospitalized her COPD exacerbation with tracheobronchitis, CTA from 11/22/2016 was negative for pulmonary embolism and there was a consolidation in the lingula and right middle lobe near the diaphragm without any suspicious pulmonary nodules or mass noted. This was all reviewed by Dr. Mendez, the changes seen in the left lingula and right middle lobe felt to be chronic. Patient is not exhibiting any clinical signs of pneumonia, COPD seems to be stable without any acute exacerbation. His mentation is much improved, he is awake alert, no signs of delirium or hallucinations noted. Review of Systems All systems: negative Constitutional: Denies chills, Denies fever Eyes: denies blurred vision, denies pain Ears, nose, mouth and throat: Denies headache, Denies sore throat Cardiovascular: Denies chest pain, Denies shortness of breath Respiratory: Denies cough Gastrointestinal: Denies abdominal pain, Denies diarrhea, Denies nausea, Denies vomiting Musculoskeletal: Denies myalgias Integumentary: Denies pruritus, Denies rash Neurological: Denies numbness, Denies weakness Psychiatric: Denies anxiety, Denies depression Endocrine: Denies fatigue, Denies weight change Past Medical History Past Medical History: Coronary Artery Disease (CAD), Heart Failure, COPD, GERD/ Reflux, Hyperlipidemia, Hypertension, Myocardial Infarction ([place]), Osteoarthritis (OA), Pneumonia, Vascular Disorder Additional Past Medical History / Comment(s): Pt recently tx with ABX for possible pneumonia, past sternal fracture secondary to fall, history of neck injury secondary to fall as well as a sternal fracture and 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 Last Myocardial Infarction Date:: 03/2016 History of Any Multi-Drug Resistant Organisms: None Reported Past Surgical History: Heart Catheterization, Orthopedic Surgery, Tonsillectomy Additional Past Surgical History / Comment(s): 09/27/16 2 vessel CABG at [place], vasectomy, left knee surgery/arthroscopy, facial surgery for a broken nose, neck surgery following a fall injury from a telephone pole and it's likely the patient had stabilization of his cervical spine, left carotid endarterectomy, peripheral vascular disease with insertion of vascular stents in lower extremities, hands surgery for a broken wrist, cholecystectomy. Past Anesthesia/Blood Transfusion Reactions: Previous Problems w/ Anesthesia Additional Past Anesthesia/Blood Transfusion Reaction / Comment(s): WOKE UP DURING WRIST SX, MILD CLAUSTERPHOBIA Smoking Status: Former smoker - Past Family History Father Family Medical History: Cancer Additional Family Medical History / Comment(s): STOMACH CANCER Mother Additional Family Medical History / Comment(s): POLIO Brother(s) Family Medical History: Myocardial Infarction ([place]) Medications and Allergies Home Medications Medication Instructions Recorded Confirmed Type Albuterol Nebulized [Ventolin 2.5 mg INHALATION RT-QID 04/09/16 12/25/16 History Nebulized] Albuterol Sulfate [Proventil Hfa] 2 puff INHALATION RT-QID PRN 04/09/16 History Budesonide/Formoterol Fumarate 2 puff INHALATION RT-BID 04/09/16 12/25/16 History [Symbicort 80-4.5 Mcg Inhaler] Nitroglycerin Sl Tabs [Nitrostat] 0.4 mg SUBLINGUAL Q5M PRN 04/09/16 12/25/16 History Omeprazole [PriLOSEC] 20 mg PO AC-BID 04/09/16 12/25/16 History Tiotropium 18 Mcg/Puff [Spiriva] 2 puff INHALATION RT-DAILY 05/20/16 12/25/16 History Aspirin 81 mg PO DAILY 09/07/16 12/25/16 Rx Atorvastatin [Lipitor] 40 mg PO DAILY 11/22/16 12/25/16 History Clopidogrel Bisulfate [Plavix] 75 mg PO DAILY 11/22/16 12/25/16 History Isosorbide Mononitrate ER [Imdur] 30 mg PO DAILY 11/22/16 12/25/16 History Metoprolol Tartrate [Lopressor] 50 mg PO BID 11/22/16 12/25/16 History Potassium Chloride [Klor-Con 10] 10 meq PO BID 11/22/16 12/25/16 History Acetaminophen Tab [Tylenol] 1,000 mg PO Q6HR PRN 12/25/16 12/25/16 History Acetaminophen/Diphenhydramine 2 tab PO HS PRN 12/25/16 12/25/16 History [Tylenol PM 500-25mg] Ipratropium Nebulized [Atrovent 0.5 mg INHALATION RT-QID 12/25/16 12/25/16 History Nebulized] L.acidoph,Paracasei, B.lactis 1 cap PO DAILY 12/25/16 12/25/16 History [Probiotic] Multivitamins, Thera [Multivitamin 1 tab PO DAILY 12/25/16 12/25/16 History (formulary)] Furosemide [Lasix] 40 mg PO DAILY tab 12/26/16 Rx Lisinopril [Zestril] 5 mg PO DAILY #30 tab 12/26/16 Rx Allergies Allergy/AdvReac Type Severity Reaction Status Date / Time Iodinated Contrast- Oral and AdvReac Itching Verified 12/25/16 08:29 IV Dye Physical Exam Vitals: Vital Signs Temp Pulse Pulse Resp BP Pulse Ox 12/26/16 11:32 98 12/26/16 11:21 98 12/26/16 07:14 106 H 12/26/16 07:07 106 H 12/26/16 07:00 97.9 F 105 H 20 162/84 95 12/26/16 00:29 88 12/26/16 00:10 100 12/26/16 00:00 16 12/25/16 20:28 104 H 12/25/16 20:15 102 H 16 133/69 98 12/25/16 20:08 100 12/25/16 16:00 105 H 20 12/25/16 15:00 98.2 F 105 H 20 139/65 94 L 12/25/16 14:59 98 F 97 20 164/69 94 L 12/25/16 14:33 88 12/25/16 14:24 88 Intake and Output 12/25/16 12/26/16 12/26/16 22:59 06:59 14:59 Intake Total 1380 1390 Balance 1380 1390 Intake: Intake, IV Titration 800 800 Amount Sodium Chloride 0.9% 1, 800 800 000 ml @ 100 mls/hr IV . Q10H [facility] Rx#:[id number] Oral 580 590 Other: Voiding Method Toilet # Voids 3 2 Weight 72.575 kg GENERAL EXAM: Alert, active, comfortable in no apparent distress. HEAD: Normocephalic. EYES: Normal reaction of pupils, equal size. NOSE: Clear with pink turbinates. THROAT: No erythema or exudates. NECK: No masses, no JVD. CHEST: No chest wall deformity. LUNGS: Equal air entry with no crackles, wheeze, rhonchi or dullness. CVS: S1 and S2 normal with no audible mumurs, regular rhythm. ABDOMEN: No hepatosplenomegaly, normal bowel sounds, no guarding or rigidity. SPINE: No scoliosis or deformity SKIN: No rashes CENTRAL NERVOUS SYSTEM: No focal deficits, tone is normal in all 4 extremities. Results - Laboratory Findings CBC and BMP: 12/26/16 06:55 12/26/16 06:55 Abnormal lab findings: Abnormal Labs 12/25/16 12/25/16 12/25/16 06:35 06:38 06:38 WBC 11.7 H RBC 4.12 L Hgb 10.9 L Hct 36.4 L MCHC 30.0 L Monocytes # 1.1 H Eosinophils # 1.2 H Chloride 108 H Carbon Dioxide 21 L BUN 27 H Glucose 114 H POC Glucose (mg/dL) 113 H 12/26/16 12/26/16 06:55 06:55 WBC RBC 3.62 L Hgb 9.4 L D Hct 32.3 L MCHC 29.1 L Monocytes # Eosinophils # Chloride 108 H Carbon Dioxide BUN Glucose 137 H POC Glucose (mg/dL) - Diagnostic Findings Chest x-ray: report reviewed CT scan - chest: report reviewed Assessment and Plan Plan: assessment: #1. Acute mental status change related to Ambien side effects, resolved #2. Chronic sinusitis with prior frontal sinus fractures. #3. Chronic limited infiltrate in the lingula and right middle lobe near diaphragm, chest x-rays from this admission workup. Chest x-rays from 2016 were compared to CTA chest from 11/22/2016, patient is not having clinical signs of pneumonia #4. underlying COPD without acute exacerbation #5. artery disease with history of CABG #6. History of carotid artery disease, with left carotid endarterectomy #7. History of systolic and diastolic CHF Plan: The limited infiltrates noted in the lingula and right middle lobe appear to be chronic based on comparison of chest x-rays and CT chest from 11/22/2016, especially in the absence of clinical symptoms. Patient is negative for any acute respiratory problems, no worsening shortness of breath, no chest congestion, no wheezing, no rhonchi nor rales. He has been afebrile. blood cultures negative after 24 hours, awaiting final sputum culture report. pulmonary sputum Gram stain is positive for many PMNs, few epithelial cells and many gram-positive cocci appears in chains. Patient's COPD stable without any signs of acute exacerbation. Neurologically, altered mentation has been resolved completely. Patient is stable to be discharged home from pulmonary standpoint. I performed a history & physical examination of the patient and discussed their management with my nurse practitioner, Whitney Gaines. lung sounds are clear, no wheezing, no rhonchi, no rales. Patient is afebrile, no significant chest congestion and sputum production. Stable for discharge home from pulmonary standpoint. I reviewed the nurse practitioner's note and agree with the documented findings and plan of care. Time with Patient: Greater than 30
[2016-12-27] MEDS ORDERED: LISINOPRIL 5 MG TAB PO SCH (09:00)
[2016-12-27] MEDS ORDERED: FUROSEMIDE 40 MG TAB PO SCH (09:00)
== END 2016-12-26 15:58 | disposition home or self-care (01) | DRG 92 ==
LOC: EC 06:10 → 5MS5E 09:06
PROVIDERS: ADMIT Hospitalist; ATTEND Hospitalist
DX: G92 Toxic encephalopathy (principal); I50.42 Chronic combined systolic (congestive) and diastolic (congestive) heart failure; I11.0 Hypertensive heart disease with heart failure; J38.00 Paralysis of vocal cords and larynx, unspecified; J44.9 Chronic obstructive pulmonary disease, unspecified; I25.119 Atherosclerotic heart disease of native coronary artery with unspecified angina pectoris; J32.9 Chronic sinusitis, unspecified; T42.6X5A Adverse effect of other antiepileptic and sedative-hypnotic drugs, initial encounter; I73.9 Peripheral vascular disease, unspecified; K21.9 Gastro-esophageal reflux disease without esophagitis; F51.3 Sleepwalking [somnambulism]; G47.00 Insomnia, unspecified; I34.0 Nonrheumatic mitral (valve) insufficiency; R09.82 Postnasal drip; I25.2 Old myocardial infarction; E78.5 Hyperlipidemia, unspecified; M19.91 Primary osteoarthritis, unspecified site; Z79.82 Long term (current) use of aspirin; Z79.02 Long term (current) use of antithrombotics/antiplatelets; Z79.51 Long term (current) use of inhaled steroids; Z79.899 Other long term (current) drug therapy; Z95.828 Presence of other vascular implants and grafts; Z90.49 Acquired absence of other specified parts of digestive tract; Z87.891 Personal history of nicotine dependence; Z95.1 Presence of aortocoronary bypass graft; Z87.81 Personal history of (healed) traumatic fracture; Y92.009 Unspecified place in unspecified non-institutional (private) residence as the place of occurrence of the external cause; Z91.041 Radiographic dye allergy status
CPT/HCPCS: 36415; 70450; 71010; 71020; 80053; 80306; 81003; 82140; 83605; 83735; 84100; 84484; 85025; 85027; 87040; 87070; 87077; 87186; 87205; 93005; 94640; 96365; 96375; 99285

== ENCOUNTER → 2017-03-18 | Outpatient (CLI) | payer OTHER ==
--- NOTE | 2017-03-18 11:50 | CT ---
EXAMINATION TYPE: CT sinus wo con DATE OF EXAM: 03/18/2017 COMPARISON: NONE HISTORY: Sinusitis CT DLP: 593.60 mGycm. Automated Exposure Control for Dose Reduction was Utilized. TECHNIQUE: CT scan of the sinuses is performed without contrast, axial images are obtained, coronal r eformatted images are also reviewed. FINDINGS: There is scant mucosal thickening within the maxillary sinuses with a 3 mm left anterior wa ll nondependent maxillary retention cyst or polyp. There is moderate near circumferential mucosal thi ckening in the right sphenoid sinus and scant mucosal thickening of the ethmoid sinuses. Moderate rig ht frontal sinus mucosal thickening is also seen. Mastoid air cells are only minimally visualized but appear patent in the visualized portions. There is mild leftward nasal septal deviation and a small 3 mm nasal septal spur. The ostiomeatal complexes are patent. Minimal right inferior nasal turbinate mucosal hypertrophy is seen. Incidentally noted rightward deviation of the kristen carlito is present. N o contra bullosa or Krystina cells. Globes are symmetric and maintained a rounded morphology. Extraocular muscles are also symmetric. Mehdi ses are in place. No evidence of acute fracture is identified. Old fracture deformity of the nasal ana ne is seen. Incidentally noted atherosclerosis of the intracranial vasculature. Exam is not optimized for evaluation of intracranial structures. IMPRESSION: 1. Moderate paranasal sinus disease with patency of the ostiomeatal complexes. 2. Mild leftward nasal septal deviation and a small 3 mm nasal septal spur. 3. Minimal right inferior nasal turbinate mucosal hypertrophy.
== END | disposition home or self-care (01) ==
LOC: RADCTMAIN 11:01
PROVIDERS: ATTEND Otolaryngology
DX: J34.2 Deviated nasal septum (principal); J34.3 Hypertrophy of nasal turbinates; J32.9 Chronic sinusitis, unspecified; J34.89 Other specified disorders of nose and nasal sinuses
CPT/HCPCS: 70486

== ENCOUNTER 2017-08-12 19:44 | Inpatient (IN) | payer MEDICARE ==
[2017-08-12] MEDS ORDERED: cefTRIAXone IN SWFI 1,000 MG/10 ML SYRINGE IVP STA (20:24)
[2017-08-12] MEDS ORDERED: ACETAMINOPHEN TAB 500 MG TAB PO STA (20:24)
[2017-08-12] MEDS ORDERED: IBUPROFEN 600 MG TAB PO STA (20:24)
[2017-08-12] MEDS ORDERED: methylPREDNISolone SOD SUCCI 125 MG/2 ML VIAL IV STA (20:25)
[2017-08-12] MEDS ORDERED: ALBUTEROL NEBULIZED 7.5 MG, IPRATROPIUM NEBULIZED 0.5 MG, SODIUM CHLORIDE 0.9% NEBULIZ ... INHALATION ONE ×3 (20:25)
[2017-08-12] MEDS: SODIUM CHLORIDE 0.9% 500 ML IV SCH ×2 (20:32→21:04)
--- NOTE | 2017-08-12 20:34 | ED ---
General Adult HPI - General Chief complaint: Shortness of Breath Stated complaint: fever Time Seen by Provider: 08/12/17 19:50 Source: patient, RN notes reviewed Mode of arrival: ambulatory Limitations: no limitations - History of Present Illness Initial comments: This is a 71-year-old male who presents emergency Department complaining of fever and cough for the last couple of days. Patient states is getting worse today as well. Patient states he has a history of COPD and shortness of breath is also getting worse today. Patient denies any chest pain or palpitations. Patient states he is coughing quite a bit but not producing any sputum. Patient states he took 10 pounds over 101. Patient denies any chest pain or palpitations. Patient denies headache patient denies numbness weakness. Patient denies lightheadedness or dizziness. Patient denies any abdominal pain patient denies nausea vomiting diarrhea. Patient denies any leg swelling or calf tenderness. - Related Data Home Medications Medication Instructions Recorded Confirmed Albuterol Nebulized [Ventolin 2.5 mg INHALATION RT-QID PRN 04/09/16 08/12/17 Nebulized] Albuterol Sulfate [Proventil Hfa] 2 puff INHALATION RT-QID PRN 04/09/16 08/12/17 Omeprazole [PriLOSEC] 20 mg PO AC-BID 04/09/16 08/12/17 Tiotropium 18 Mcg/Puff [Spiriva] 1 puff INHALATION RT-DAILY 05/20/16 08/12/17 Atorvastatin [Lipitor] 80 mg PO DAILY 11/22/16 08/12/17 Isosorbide Mononitrate ER [Imdur] 30 mg PO DAILY 11/22/16 08/12/17 Metoprolol Tartrate [Lopressor] 50 mg PO BID 11/22/16 08/12/17 Ipratropium Nebulized [Atrovent 0.5 mg INHALATION RT-QID PRN 12/25/16 08/12/17 Nebulized] Budesonide/Formoterol Fumarate 2 puff INHALATION RT-BID 08/12/17 08/12/17 [Symbicort 160-4.5 Mcg Inhaler] Fluticasone Nasal [place] [Flonase 1 spray EA NOSTRIL DAILY 08/12/17 08/12/17 Nasal [place]] Previous Rx's Medication Instructions Recorded Aspirin 81 mg PO DAILY 09/07/16 Lisinopril [Zestril] 5 mg PO DAILY #30 tab 12/26/16 Allergies Allergy/AdvReac Type Severity Reaction Status Date / Time Iodinated Contrast- Oral and AdvReac Itching Verified 08/12/17 20:28 IV Dye Review of Systems ROS Statement: Those systems with pertinent positive or pertinent negative responses have been documented in the HPI. ROS Other: All systems not noted in ROS Statement are negative. 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 Last Myocardial Infarction Date:: 03/2016 History of Any Multi-Drug Resistant Organisms: None Reported Past Surgical History: Heart Catheterization, Orthopedic Surgery, Tonsillectomy Additional Past Surgical History / Comment(s): 09/27/16 2 vessel CABG at [place], vasectomy, left knee surgery/arthroscopy, facial surgery for a broken nose, neck surgery following a fall injury from a telephone pole and it's likely the patient had stabilization of his cervical spine, left carotid endarterectomy, peripheral vascular disease with insertion of vascular stents in lower extremities, hands surgery for a broken wrist, cholecystectomy, sinuplasty Past Anesthesia/Blood Transfusion Reactions: Previous Problems w/ Anesthesia Additional Past Anesthesia/Blood Transfusion Reaction / Comment(s): WOKE UP DURING WRIST SX, MILD CLAUSTERPHOBIA Past Psychological History: No Psychological Hx Reported Smoking Status: Former smoker Past Alcohol Use History: None Reported Past Drug Use History: None Reported - Past Family History Father Family Medical History: Cancer Additional Family Medical History / Comment(s): STOMACH CANCER Mother Additional Family Medical History / Comment(s): POLIO Brother(s) Family Medical History: Myocardial Infarction ([place]) General Exam - General Exam Comments Initial Comments: GENERAL: Patient is well-developed and well-nourished. Patient is nontoxic and well- hydrated and is in mild distress. ENT: Neck is soft and supple. No significant lymphadenopathy is noted. Oropharynx is clear. Moist mucous membranes. Neck has full range of motion without eliciting any pain. EYES: The sclera were anicteric and conjunctiva were pink and moist. Extraocular movements were intact and pupils were equal round and reactive to light. Eyelids were unremarkable. PULMONARY: Patient is crackles bilateral bases with expiratory wheezing. CARDIOVASCULAR: There is a regular rate and rhythm without any murmurs gallops or rubs. ABDOMEN: Soft and nontender with normal bowel sounds. No palpable organomegaly was noted. There is no palpable pulsatile mass. SKIN: Skin is clear with no lesions or rashes and otherwise unremarkable. NEUROLOGIC: Patient is alert and oriented x3. Cranial nerves II through XII are grossly intact. Motor and sensory are also intact. Normal speech, volume and content. Symmetrical smile. MUSCULOSKELETAL: Normal extremities with adequate strength and full range of motion. No lower extremity swelling or edema. No calf tenderness. LYMPHATICS: No significant lymphadenopathy is noted PSYCHIATRIC: Normal psychiatric evaluation. Normal interpersonal interactions appears functionally intact in deals appropriately with others. No signs of depression. No signs of anxiety. Limitations: no limitations Course Vital Signs 08/12/17 08/12/17 08/12/17 19:50 20:12 20:56 Temperature 99.4 F 100.6 F H Pulse Rate 114 H 105 H Respiratory 18 20 Rate Blood Pressure 134/76 O2 Sat by Pulse 92 L Oximetry 08/12/17 08/12/17 08/12/17 21:04 21:12 21:46 Temperature Pulse Rate 106 H 109 H 112 H Respiratory 20 Rate Blood Pressure O2 Sat by Pulse 97 Oximetry 08/12/17 22:06 Temperature 98.3 F Pulse Rate 109 H Respiratory 20 Rate Blood Pressure 153/73 O2 Sat by Pulse 95 Oximetry Medical Decision Making - Medical Decision Making EKG shows sinus tachycardia at 190 bpm OH interval 148 QRSs 86 QT interval 326 QTC is 439. Patient's EKG shows no ST segment elevation. I took the oxygen off the patient patient's oxygenation dipped down to 87%. Patient received 3 consecutive breathing treatments steroids and antibiotics. Chest x-ray shows left lower lobe pneumonia. I spoke with Dr. Sheikh he agreed to admit the patient admitted the patient wrote admitting orders. I continued breathing treatments and steroids on the floor. - Lab Data Result diagrams: 08/12/17 20:36 08/12/17 20:36 Lab Results 08/12/17 08/12/17 08/12/17 Range/Units 20:36 20:36 20:36 WBC 11.4 H (3.8-10.6) k/uL RBC 4.59 (4.30-5.90) m/uL Hgb 12.8 L (13.0-17.5) gm/dL Hct 38.9 L (39.0-53.0) % MCV 84.8 (80.0-100.0) fL MCH 27.8 (25.0-35.0) pg MCHC 32.8 (31.0-37.0) g/dL RDW 16.8 H (11.5-15.5) % Plt Count 222 (150-450) k/uL Neutrophils % 83 % Lymphocytes % 6 % Monocytes % 6 % Eosinophils % 3 % Basophils % 0 % Neutrophils # 9.4 H (1.3-7.7) k/uL Lymphocytes # 0.7 L (1.0-4.8) k/uL Monocytes # 0.7 (0-1.0) k/uL Eosinophils # 0.3 (0-0.7) k/uL Basophils # 0.0 (0-0.2) k/uL Anisocytosis Slight PT (9.0-12.0) sec INR (<1.2) APTT (22.0-30.0) sec Sodium 137 (137-145) mmol/L Potassium 4.1 (3.5-5.1) mmol/L Chloride 103 (98-107) mmol/L Carbon Dioxide 23 (22-30) mmol/L Anion Gap 11 mmol/L BUN 23 H (9-20) mg/dL Creatinine 0.90 (0.66-1.25) mg/dL Est GFR (CKD-EPI)AfAm >90 (>60 ml/min/1.73 sqM) Est GFR (CKD-EPI)NonAf 85 (>60 ml/min/1.73 sqM) Glucose 132 H (74-99) mg/dL Plasma Lactic Acid Conrado 1.1 (0.7-2.0) mmol/L Calcium 8.8 (8.4-10.2) mg/dL Total Bilirubin 0.4 (0.2-1.3) mg/dL AST 19 (17-59) U/L ALT 32 (21-72) U/L Alkaline Phosphatase 62 (38-126) U/L Troponin I (0.000-0.034) ng/mL Total Protein 6.1 L (6.3-8.2) g/dL Albumin 3.6 (3.5-5.0) g/dL 08/12/17 08/12/17 Range/Units 20:36 20:36 WBC (3.8-10.6) k/uL RBC (4.30-5.90) m/uL Hgb (13.0-17.5) gm/dL Hct (39.0-53.0) % MCV (80.0-100.0) fL MCH (25.0-35.0) pg MCHC (31.0-37.0) g/dL RDW (11.5-15.5) % Plt Count (150-450) k/uL Neutrophils % % Lymphocytes % % Monocytes % % Eosinophils % % Basophils % % Neutrophils # (1.3-7.7) k/uL Lymphocytes # (1.0-4.8) k/uL Monocytes # (0-1.0) k/uL Eosinophils # (0-0.7) k/uL Basophils # (0-0.2) k/uL Anisocytosis PT 9.8 (9.0-12.0) sec INR 1.0 (<1.2) APTT 25.9 (22.0-30.0) sec Sodium (137-145) mmol/L Potassium (3.5-5.1) mmol/L Chloride (98-107) mmol/L Carbon Dioxide (22-30) mmol/L Anion Gap mmol/L BUN (9-20) mg/dL Creatinine (0.66-1.25) mg/dL Est GFR (CKD-EPI)AfAm (>60 ml/min/1.73 sqM) Est GFR (CKD-EPI)NonAf (>60 ml/min/1.73 sqM) Glucose (74-99) mg/dL Plasma Lactic Acid Conrado (0.7-2.0) mmol/L Calcium (8.4-10.2) mg/dL Total Bilirubin (0.2-1.3) mg/dL AST (17-59) U/L ALT (21-72) U/L Alkaline Phosphatase (38-126) U/L Troponin I <0.012 (0.000-0.034) ng/mL Total Protein (6.3-8.2) g/dL Albumin (3.5-5.0) g/dL Critical Care Time Critical Care Time: Yes Total Critical Care Time: 35 Disposition Clinical Impression: Pneumonia, Acute exacerbation of chronic obstructive airways disease Disposition: ADMITTED IP TO THIS HOSP Referrals: [facility],Clinic [Primary Care Provider] - 1-2 days Time of Disposition: 22:23
[2017-08-12 20:45] LABS: Anisocytosis Slight; Basophils % (A) 0 %; Eosinophils # (A) 0.3 k/uL (0-0.7); Eosinophils % (A) 3 %; HCT 38.9 % (39.0-53.0); HGB 12.8 gm/dL (13.0-17.5); Lymphocytes # (A) 0.7 k/uL (1.0-4.8); Lymphocytes % (A) 6 %; MCH 27.8 pg (25.0-35.0); MCHC 32.8 g/dL (31.0-37.0); MCV 84.8 fL (80.0-100.0); Mean Platelet Volume 6.7; Monocytes # (A) 0.7 k/uL (0-1.0); Monocytes % (A) 6 %; Neutrophils # (A) 9.4 k/uL (1.3-7.7); Neutrophils % (A) 83 %; Platelet Count 222 k/uL (150-450); RBC 4.59 m/uL (4.30-5.90); RDW 16.8 % (11.5-15.5); WBC 11.4 k/uL (3.8-10.6)
[2017-08-12] MEDS ORDERED: ALBUTEROL NEBULIZED 2.5 MG/3 ML INHALATION STA (20:52)
[2017-08-12] MEDS ORDERED: IPRATROPIUM 0.5 MG/2.5 ML NEBU INHALATION STA (20:52)
[2017-08-12 20:53] LABS: Partial Thromboplastin Time 25.9 sec (22.0-30.0); Prothrombin Time 9.8 sec (9.0-12.0)
[2017-08-12 20:57] LABS: ALT 32 U/L (21-72); AST 19 U/L (17-59); Albumin 3.6 g/dL (3.5-5.0); Alkaline Phosphatase 62 U/L (38-126); Anion Gap 11 mmol/L; Blood Urea Nitrogen 23 mg/dL (9-20); Calcium 8.8 mg/dL (8.4-10.2); Carbon Dioxide 23 mmol/L (22-30); Chloride 103 mmol/L (98-107); Glucose 132 mg/dL (74-99); Potassium 4.1 mmol/L (3.5-5.1); Sodium 137 mmol/L (137-145); Total Bilirubin 0.4 mg/dL (0.2-1.3); Total Protein 6.1 g/dL (6.3-8.2)
--- NOTE | 2017-08-12 21:55 | XR ---
EXAMINATION TYPE: XR chest 2V DATE OF EXAM: 08/12/2017 COMPARISON: 12/26/2016 HISTORY: Fever TECHNIQUE: Frontal and lateral views of the chest are obtained. FINDINGS: Heart and mediastinum are normal. There is patchy interstitial infiltrate and atelectasis in the lingula left upper lobe. There is no heart failure. There are sternal wires. There are chest l deborah. There is no pleural effusion. IMPRESSION: There is chronic infiltrate and atelectasis in the lingula left upper lobe consistent wi th scarring. This appears not significantly different than old exam. Normal heart.
[2017-08-12 23:46] VITALS: BMI 27.6
[2017-08-13] MEDS: methylPREDNISolone SOD SUCCI 125 MG/2 ML VIAL IV SCH ×5 (01:02→23:40)
[2017-08-13 02:23] LABS: Appearance,Urine Clear (Clear); Bilirubin,Urine Negative (Negative); Blood,Urine Negative (Negative); Color,Urine Yellow; Glucose,Urine (UA) Negative (Negative); Ketones,Urine Negative (Negative); Leukocyte Esterase,Urine Negative (Negative); Nitrite,Urine Negative (Negative); PH, Urine 5.5 (5.0-8.0); Protein,Urine Negative (Negative); Specific Gravity,Urine 1.015 (1.001-1.035); Urobilinogen,Urine <2.0 mg/dL (<2.0)
[2017-08-13] MEDS: IPRATROPIUM-ALBUTEROL 3 ML NEB INHALATION PRN ×4 (08:10→20:15)
[2017-08-13] MEDS: AZITHROMYCIN 500 MG TAB PO SCH (10:47)
[2017-08-13] MEDS: ASPIRIN 81 MG PO SCH (12:04)
[2017-08-13] MEDS: FLUTICASONE 50MCG/SPRAY NASAL 16GM EA NOSTRIL SCH (12:05)
[2017-08-13] MEDS: ATORVASTATIN 80 MG TAB PO SCH ×2 (12:05→12:08)
[2017-08-13] MEDS: ISOSORBIDE MONONITRATE ER 30 MG TAB.ER.24H PO SCH (12:06)
[2017-08-13] MEDS: METOPROLOL TARTRATE 50 MG TAB PO SCH ×2 (12:06→21:51)
[2017-08-13] MEDS: LISINOPRIL 5 MG TAB PO SCH (12:06)
[2017-08-13] MEDS ORDERED: ALPRAZolam 0.25 MG TAB PO PRN (12:38)
[2017-08-13] MEDS ORDERED: cloNIDine HCL 0.1 MG TAB PO PRN (12:39)
--- NOTE | 2017-08-13 15:04 | P.CNPUL ---
History of Present Illness Consult date: 08/13/17 Requesting physician: Dinah Radford Reason for consult: dyspnea, cough, COPD Chief complaint: Cough, low-grade fever, dyspnea, chest congestion History of present illness: Mr. Ramos is a 71-year-old white male patient who follows with NIDA Almeida, from [facility], presented to the emergency department on 08/12/2017 at 1944 with complaints of 2 day history of increasing fatigue, shortness of breath, chest congestion, low-grade fever, productive cough with yellow sputum. Denied any chest pain, denied any palpitations. Patient at times has severe coughing spells, and his sputum color has changed from its baseline, and is more yellow and purulent. Denied any hemoptysis, did state he was exposed to a sick contact, and may have over exerted himself. He has underlying history of advanced COPD, with chronic hypoxemic respiratory failure , on home O2 at 2 L per nasal cannula, baseline FEV1 of 26% of predicted, consistent with severe advanced COPD, GOLD stage IV. He is maintenance inhalers and nebulized treatments including Spiriva, Symbicort, DuoNeb nebulized treatments, and Ventolin rescue inhaler. Denied any leg swelling denied any lightheadedness or dizziness, denied any nausea, vomiting or diarrhea. Did report some chills. Chest X-ray was taken in the emergency department and showed chronic infiltrates and atelectasis in the lingula left upper lobe consistent with scarring, this was compared to previous study from , and appears to be chronic in nature. Lab work showed WBC of 11.4, hemoglobin of 12.8, electrolytes were within normal limits, BUN was 23, creatinine was 0.90, urinalysis was negative, troponin was negative 1, LFTs were within normal limits, plasma lactic acid was 1.1. Patient usually sees Dr. Lai in the pulmonary office for his COPD, however has not been back in some time since March 2016. Other medical history includes CHF, CAD with history of coronary artery bypass grafting, hypertension, peripheral vascular disease, previous history of nicotine dependence, hyperlipidemia, osteoarthritis , previous pneumonia. Patient also relates that in the past he was told his epiglottis does not close fully, this was discovered during his hospitalization for bypass surgery in September 2016 in [place], patient underwent a barium swallow evaluation, and told that he is a risk for aspiration. On the regular basis, patient has coughing episodes with thin liquids, and foods that crumble easily. Patient states he has learned to avoid such foods, time with thin liquids but still has episodes of coughing. Patient had a low grade fever of 100.6F. He was started on empiric antibiotics in the form of Rocephin and Zithromax, Symbicort, nebulized bronchodilators, and we're seeing this patient in consultation for what appears to be acute COPD exacerbation with tracheobronchitis Review of Systems All systems: negative Constitutional: Denies chills, Denies fever Eyes: denies blurred vision, denies pain Ears, nose, mouth and throat: Denies headache, Denies sore throat Cardiovascular: Denies chest pain, Denies shortness of breath Respiratory: Reports congestion, Reports cough with sputum, Reports dyspnea, Reports excessive sputum, Reports home oxygen, Reports respiratory infections, Denies cough Gastrointestinal: Denies abdominal pain, Denies diarrhea, Denies nausea, Denies vomiting Musculoskeletal: Denies myalgias Integumentary: Denies pruritus, Denies rash Neurological: Denies numbness, Denies weakness Psychiatric: Denies anxiety, Denies depression Endocrine: Denies fatigue, Denies weight change Past Medical History Past Medical History: Coronary Artery Disease (CAD), Heart Failure, COPD, GERD/ Reflux, Hyperlipidemia, Hypertension, Myocardial Infarction (CT), Osteoarthritis (OA), Pneumonia, Vascular Disorder Additional Past Medical History / Comment(s): past sternal fracture, neck injury and 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 scheduled for angioplasty on left leg 07/2017 Last Myocardial Infarction Date:: 03/2016 History of Any Multi-Drug Resistant Organisms: None Reported Past Surgical History: Heart Catheterization, Orthopedic Surgery, Tonsillectomy Additional Past Surgical History / Comment(s): 09/27/16 2 vessel CABG at [place], vasectomy, left knee surgery/arthroscopy, facial surgery for a broken nose, neck surgery following a fall injury from a telephone pole and it's likely the patient had stabilization of his cervical spine, left carotid endarterectomy, peripheral vascular disease with insertion of vascular stents in lower extremities, hands surgery for a broken wrist, cholecystectomy, sinuplasty Past Anesthesia/Blood Transfusion Reactions: Previous Problems w/ Anesthesia Additional Past Anesthesia/Blood Transfusion Reaction / Comment(s): WOKE UP DURING WRIST SX, MILD CLAUSTERPHOBIA Past Psychological History: No Psychological Hx Reported Additional Psychological History / Comment(s): PT LIVES AT HOME WITH HIS , 1 INDOOR DOG. PT SERVED IN THE [employer] AND THE [employer]. BEFORE RETIRING PT HAD BEEN WORKING FOR [employer]. PT IS INDEPENDANT.NO OUTSIDE SERVICES. PT DOES NOT DRIVE, HIS SPOUSE DOES. HE HAS HOME O2 AND A NEBULIZER. Smoking Status: Former smoker Past Alcohol Use History: None Reported Additional Past Alcohol Use History / Comment(s): STARTED SMOKING WHEN I WAS 8, QUIT 2004, WAS SMOKING 2-3 PPD Past Drug Use History: None Reported - Past Family History Father Family Medical History: Cancer Additional Family Medical History / Comment(s): STOMACH CANCER Mother Additional Family Medical History / Comment(s): POLIO Brother(s) Family Medical History: Myocardial Infarction (CT) Medications and Allergies Home Medications Medication Instructions Recorded Confirmed Type Albuterol Nebulized [Ventolin 2.5 mg INHALATION RT-QID PRN 04/09/16 08/12/17 History Nebulized] Albuterol Sulfate [Proventil Hfa] 2 puff INHALATION RT-QID PRN 04/09/16 History Omeprazole [PriLOSEC] 20 mg PO AC-BID 04/09/16 08/12/17 History Tiotropium 18 Mcg/Puff [Spiriva] 1 puff INHALATION RT-DAILY 05/20/16 08/12/17 History Aspirin 81 mg PO DAILY 09/07/16 08/12/17 Rx Atorvastatin [Lipitor] 80 mg PO DAILY 11/22/16 08/12/17 History Isosorbide Mononitrate ER [Imdur] 30 mg PO DAILY 11/22/16 08/12/17 History Metoprolol Tartrate [Lopressor] 50 mg PO BID 11/22/16 08/12/17 History Ipratropium Nebulized [Atrovent 0.5 mg INHALATION RT-QID PRN 12/25/16 08/12/17 History Nebulized] Lisinopril [Zestril] 5 mg PO DAILY #30 tab 12/26/16 08/12/17 Rx Budesonide/Formoterol Fumarate 2 puff INHALATION RT-BID 08/12/17 08/12/17 History [Symbicort 160-4.5 Mcg Inhaler] Fluticasone Nasal [place] [Flonase 1 spray EA NOSTRIL DAILY 08/12/17 08/12/17 History Nasal [place]] Allergies Allergy/AdvReac Type Severity Reaction Status Date / Time Iodinated Contrast- Oral and AdvReac Itching Verified 08/12/17 20:28 IV Dye Physical Exam Vitals: Vital Signs Temp Pulse Pulse Resp BP BP Pulse Ox 08/13/17 13:09 72 08/13/17 12:59 72 08/13/17 08:20 88 08/13/17 08:10 108 H 08/12/17 23:55 19 08/12/17 23:05 97.7 F 93 17 144/65 99 08/12/17 22:46 98.2 F 91 18 130/84 95 08/12/17 22:06 98.3 F 109 H 20 153/73 95 08/12/17 21:46 112 H 08/12/17 21:12 109 H 08/12/17 21:04 106 H 20 97 08/12/17 20:56 105 H 08/12/17 20:12 100.6 F H 20 08/12/17 19:50 99.4 F 114 H 18 134/76 92 L Intake and Output 08/12/17 08/13/17 08/13/17 22:59 06:59 14:59 Other: Weight 80 kg 80 kg GENERAL EXAM: Alert, pleasant, 71-year-old white male comfortable in no apparent distress. HEAD: Normocephalic/atraumatic. EYES: Normal reaction of pupils, equal size. Conjunctiva pink, sclera white. NOSE: Clear with pink turbinates. THROAT: No erythema or exudates. NECK: No masses, no JVD, no thyroid enlargement, no adenopathy. CHEST: No chest wall deformity. Symmetrical expansion. LUNGS: Scattered rhonchi over anterior chest, diminished lung sounds overall, prolongation of expiratory phase CVS: Regular rate and rhythm, normal S1 and S2, no gallops, no murmurs, no rubs ABDOMEN: Soft, nontender. No hepatosplenomegaly, normal bowel sounds, no guarding or rigidity. EXTREMITIES: No clubbing, no edema, no cyanosis, 2+ pulses and upper and lower extremities. MUSCULOSKELETAL: Muscle strength and tone normal. SPINE: No scoliosis or deformity SKIN: No rashes CENTRAL NERVOUS SYSTEM: Alert and oriented -3. No focal deficits, tone is normal in all 4 extremities. PSYCHIATRIC: Alert and oriented -3. Appropriate affect. Intact judgment and insight. Results - Laboratory Findings CBC and BMP: 08/12/17 20:36 08/12/17 20:36 PT/INR, D-dimer PT 9.8 sec (9.0-12.0) 08/12/17 20:36 INR 1.0 (<1.2) 08/12/17 20:36 Abnormal lab findings: Abnormal Labs 08/12/17 08/12/17 20:36 20:36 WBC 11.4 H Hgb 12.8 L Hct 38.9 L RDW 16.8 H Neutrophils # 9.4 H Lymphocytes # 0.7 L BUN 23 H Glucose 132 H Total Protein 6.1 L - Diagnostic Findings Chest x-ray: report reviewed, image reviewed Additional studies: EKG reviewed Assessment and Plan Plan: Assessment: #1. Acute exacerbation of chronic obstructive pulmonary disease, with purulent tracheobronchitis. Chest x-ray showed a chronic infiltrate in the left upper lobe, this was compared to previous chest x-rays, and appears to be chronic in nature. However in view of patient's presenting symptoms, with fever, chills, purulent phlegm, cough, dyspnea, cannot entirely rule out pneumonia, community- acquired #2. Severe advanced COPD, baseline FEV1 of 26% of predicted, with chronic hypoxemic respiratory failure, is on home O2 at 2 L per nasal cannula #3. Dyspnea, chest congestion, purulent sputum production, due to the above #4. History of nicotine dependence, currently in remission, patient quit 14 years ago, but prior to that smoked for 58 years, up to 2 packs a day #5. History of coronary artery disease, with previous two-vessel coronary artery bypass grafting in September 2016 in [place] #6. Ischemic cardiomyopathy with Impaired left ventricular systolic function, and most recent echocardiogram showed left ventricular systolic function, mild to moderately impaired with an EF between 40-45% there has been any improvement in his left ventricular heart function since his bypass surgery in September of last year. #7. Suspect aspiration based on his history, and patient had previously had been told he is of aspiration risk based on his barium swallow evaluation #8. Hypertension #9. Chronic sinusitis, prior frontal sinus fractures, and sinus repair, [address] Dutta #10. History of coronary artery disease, with left carotid endarterectomy Plan: Continue current antibiotic coverage, Rocephin and Zithromax, continue IV Solu- Medrol, nebulized bronchodilators. Send a sputum culture. Patient already reports improvement, 0 to responding nicely to treatments. Anticipate further improvement, will obtain speech evaluation in regards to patient's underlying history of vocal cord dysfunction. We'll continue to follow I performed a history & physical examination of the patient and discussed their management with my nurse practitioner, Whitney Gaines. I reviewed the nurse practitioner's note and agree with the documented findings and plan of care. Lung sounds are diminished, with scattered rhonchi, or anterior upper lobes. The findings and the impression was discussed with the patient. I attest to the documentation by the nurse practitioner. Time with Patient: Greater than 30
--- NOTE | 2017-08-13 15:11 | HP ---
HISTORY AND PHYSICAL CHIEF COMPLAINT: Cough and sputum and fever. HISTORY OF PRESENT ILLNESS: This 71-year-old gentleman with a past history of CAD, COPD, CHF, GERD, hypertension, hyperlipidemia, myocardial infarction being followed by Dr. Godoy in the outpatient setting, was complaining of cough for the last several days, some shortness of breath and fever up to 101 and the patient also had mucopurulent sputum. A chest x-ray done in the emergency room showed chronic infiltrate and atelectasis in the lingula in the left upper lobe consistent with scarring. No acute abnormalities noted. No chest pain. No palpitations. No fever. PAST MEDICAL HISTORY: History of CAD, CHF, COPD, GERD, hypertension, hyperlipidemia, myocardial infarction, DJD, history of cardiac catheterization. MEDICATIONS: Prior to admission include home medications are: 1. Spiriva 1 puff daily. 2. Prilosec 20 mg b.i.d. 3. Lopressor 50 mg p.o. b.i.d. 4. Zestril 5 mg p.o. daily. 5. Imdur 30 mg p.o. daily. 6. Atrovent 0.5 q.i.d. p.r.n. 7. Flonase 1 spray daily. 8. Symbicort 160/4.5 two puffs b.i.d. 9. Lipitor 80 mg p.o. daily. 10.Aspirin 81 mg daily. 11.Proventil HFA 2 puffs q.i.d. p.r.n. 12.Ventolin 2.5 q.i.d. p.r.n. ALLERGIES: IODINATED CONTRAST DYES. FAMILY HISTORY: History of stomach cancer in the family. SOCIAL HISTORY: Previous history of smoking, no history of current smoking or alcohol intake. REVIEW OF SYSTEMS: ENT: No diminished hearing or vision. CARDIOVASCULAR: As mentioned earlier. RESPIRATORY: As mentioned earlier. GI: No nausea. : No dysuria. NERVOUS SYSTEM: No numbness or weakness. IMMUNOLOGY: No history of asthma. MUSCULOSKELETAL: As mentioned earlier. HEMATOLOGY/ONCOLOGY: No history of anemia. ENDOCRINE: No history of diabetes or hypothyroid. CONSTITUTIONAL: As mentioned earlier. DERMATOLOGY: Negative. PSYCHIATRY: As mentioned earlier. PHYSICAL EXAMINATION: Alert and oriented x3. Pulse is 108, blood pressure is 144/65, respiration 17, temperature 97.7, pulse ox 98% on 2 L. HEENT: Conjunctivae normal. Oral mucosa moist. Neck is no jugular venous distention. No lymph node enlargement. CARDIOVASCULAR: S1, S2. n RESPIRATORY: Breath sounds diminished at the bases. A few scattered rhonchi. No crackles. ABDOMEN: Soft, nontender. No mass palpable. LEGS: No edema, no swelling. NERVOUS SYSTEM: High functions as mentioned earlier, moves all 4 limbs, no focal motor deficits. LYMPHATICS: No lymph node enlargement in the neck or axillae. SKIN: No rash, bleeding. LAB STUDIES: WBC is 11.8, hemoglobin 12.8. ASSESSMENT: 1. Chronic obstructive pulmonary disease acute exacerbation with acute purulent tracheobronchitis. 2. Chronic scarring in the chest x-ray. 3. Increased WBC. 4. Anemia, normocytic anemia of chronic disease. 5. History of congestive heart failure, chronic obstructive pulmonary disease, gastroesophageal reflux disease. 6. Hypertension. 7. Hyperlipidemia. 8. Myocardial infarction. 9. History of degenerative joint disease. 10.History of pneumonia. 11.History of sternal fracture. 12.History of chronic hypoxic respiratory failure. 13.Coronary artery disease, coronary artery bypass grafting. RECOMMENDATION: In this 71-year-old gentleman who presented with multiple complex medical issues, will monitor the patient closely, continue with the current management and symptomatic treatment, bronchodilators, IV steroids, monitor blood sugars closely. Otherwise, I would also recommend empiric antibiotics, consult Dr. Mendez. Guarded prognosis because of multiple complex medical issues and further recommendations to follow. See orders for details. A copy of this forwarded to Dr. Godoy who is the primary physician. Will also obtain the sputum culture as well. MMODL / IJN: [id number] /
[2017-08-13 17:53] LABS: Glucose,Whole Blood 144 mg/dL (75-99)
[2017-08-13] MEDS: INSULIN ASPART 100 UNIT/ML 1 ML 10 ML VIAL SQ SCH ×2 (17:57→21:50)
[2017-08-13] MEDS: SYMBICORT 160-4.5 MCG INHALER INHALATION SCH (20:15)
[2017-08-13 20:26] LABS: Hemoglobin A1C 6.3 % (4.0-6.0)
[2017-08-13 20:32] LABS: Glucose,Whole Blood 179 mg/dL (75-99)
[2017-08-13] MEDS ORDERED: ATORVASTATIN 80 MG TAB PO SCH (21:00)
[2017-08-13] MEDS ORDERED: cefTRIAXone IN SWFI 1,000 MG/10 ML SYRINGE IVP SCH (21:00)
[2017-08-13] MEDS: HEPARIN SODIUM,PORCINE 5,000 UNIT/ML 1 ML VIAL SQ SCH (21:52)
[2017-08-14] MEDS: methylPREDNISolone SOD SUCCI 125 MG/2 ML VIAL IV SCH ×2 (05:48→12:09)
[2017-08-14 07:27] LABS: Glucose,Whole Blood 148 mg/dL (75-99)
[2017-08-14 07:28] LABS: Anisocytosis Slight; Basophils % (A) 0 %; Eosinophils % (A) 0 %; HCT 41.2 % (39.0-53.0); HGB 12.9 gm/dL (13.0-17.5); Lymphocytes # (A) 0.7 k/uL (1.0-4.8); Lymphocytes % (A) 4 %; MCH 27.4 pg (25.0-35.0); MCHC 31.4 g/dL (31.0-37.0); MCV 87.1 fL (80.0-100.0); Mean Platelet Volume 7.2; Monocytes # (A) 0.6 k/uL (0-1.0); Monocytes % (A) 4 %; Neutrophils % (A) 91 %; Platelet Count 250 k/uL (150-450); RBC 4.73 m/uL (4.30-5.90); RDW 16.9 % (11.5-15.5); WBC 15.4 k/uL (3.8-10.6)
[2017-08-14] MEDS ORDERED: PANTOPRAZOLE 40 MG TABLET PO SCH (07:30)
[2017-08-14] MEDS: HEPARIN SODIUM,PORCINE 5,000 UNIT/ML 1 ML VIAL SQ SCH (07:33)
[2017-08-14] MEDS: ASPIRIN 81 MG PO SCH (07:33)
[2017-08-14] MEDS: ISOSORBIDE MONONITRATE ER 30 MG TAB.ER.24H PO SCH (07:33)
[2017-08-14] MEDS: AZITHROMYCIN 500 MG TAB PO SCH (07:33)
[2017-08-14] MEDS: METOPROLOL TARTRATE 50 MG TAB PO SCH (07:33)
[2017-08-14] MEDS: LISINOPRIL 5 MG TAB PO SCH (07:33)
[2017-08-14] MEDS: INSULIN ASPART 100 UNIT/ML 1 ML 10 ML VIAL SQ SCH ×2 (07:34→11:10)
[2017-08-14] MEDS: FLUTICASONE 50MCG/SPRAY NASAL 16GM EA NOSTRIL SCH (07:35)
[2017-08-14 08:00] LABS: Anion Gap 12 mmol/L; Blood Urea Nitrogen 26 mg/dL (9-20); Calcium 9.5 mg/dL (8.4-10.2); Carbon Dioxide 26 mmol/L (22-30); Chloride 103 mmol/L (98-107); Glucose 144 mg/dL (74-99); Sodium 141 mmol/L (137-145)
[2017-08-14] MEDS: SYMBICORT 160-4.5 MCG INHALER INHALATION SCH (08:23)
[2017-08-14] MEDS: IPRATROPIUM-ALBUTEROL 3 ML NEB INHALATION PRN ×3 (08:23→15:35)
[2017-08-14 11:18] LABS: Glucose,Whole Blood 126 mg/dL (75-99)
--- NOTE | 2017-08-14 13:45 | P.PN ---
Subjective Progress Note Date: 08/14/17 Principal diagnosis: acute exacerbation of chronic obstructive pulmonary disease with purulent tracheobronchitis. Chronic infiltrate in the left upper lobe, possible chronic aspiration Mr. Ramos is a 71-year-old white male patient who follows with NIDA Almeida, from [facility], presented to the emergency department on 08/12/2017 at 1944 with complaints of 2 day history of increasing fatigue, shortness of breath, chest congestion, low-grade fever, productive cough with yellow sputum. Denied any chest pain, denied any palpitations. Patient at times has severe coughing spells, and his sputum color has changed from its baseline, and is more yellow and purulent. Denied any hemoptysis, did state he was exposed to a sick contact, and may have over exerted himself. He has underlying history of advanced COPD, with chronic hypoxemic respiratory failure , on home O2 at 2 L per nasal cannula, baseline FEV1 of 26% of predicted, consistent with severe advanced COPD, GOLD stage IV. He is maintenance inhalers and nebulized treatments including Spiriva, Symbicort, DuoNeb nebulized treatments, and Ventolin rescue inhaler. Denied any leg swelling denied any lightheadedness or dizziness, denied any nausea, vomiting or diarrhea. Did report some chills. Chest X-ray was taken in the emergency department and showed chronic infiltrates and atelectasis in the lingula left upper lobe consistent with scarring, this was compared to previous study from , and appears to be chronic in nature. Lab work showed WBC of 11.4, hemoglobin of 12.8, electrolytes were within normal limits, BUN was 23, creatinine was 0.90, urinalysis was negative, troponin was negative 1, LFTs were within normal limits, plasma lactic acid was 1.1. Patient usually sees Dr. Lai in the pulmonary office for his COPD, however has not been back in some time since March 2016. Other medical history includes CHF, CAD with history of coronary artery bypass grafting, hypertension, peripheral vascular disease, previous history of nicotine dependence, hyperlipidemia, osteoarthritis , previous pneumonia. Patient also relates that in the past he was told his epiglottis does not close fully, this was discovered during his hospitalization for bypass surgery in September 2016 in [place], patient underwent a barium swallow evaluation, and told that he is a risk for aspiration. On the regular basis, patient has coughing episodes with thin liquids, and foods that crumble easily. Patient states he has learned to avoid such foods, time with thin liquids but still has episodes of coughing. Patient had a low grade fever of 100.6F. He was started on empiric antibiotics in the form of Rocephin and Zithromax, Symbicort, nebulized bronchodilators, and we're seeing this patient in consultation for what appears to be acute COPD exacerbation with tracheobronchitis On 08/06/2017 patient seen again in follow-up on medical surgical floor. States his breathing is improving, still has productive cough with yellow sputum , but this seems to be improving, lung sounds are diminished, with some coarse breath sounds, but overall no significant wheezing. Wearing his oxygen intermittently, pulse ox on 2 L per nasal cannula was 95%, he is afebrile, hemodynamically stable. Sputum culture was sent, and is pending at this time, blood and urine cultures are negative. His blood work shows WBC 15.4, hemoglobin of 12.9, electrolytes were within normal limits, BUN is 26, creatinine 0.85. Patient is scheduled for modified barium swallow this afternoon to rule out aspiration. Clinically patient is stable, is improving, will await the results of the modified barium swallow, and patient potentially could be discharged later today. Objective - Vital Signs Vital signs: Vital Signs Temp 98.0 F 08/14/17 05:00 Pulse 74 08/14/17 11:45 Resp 16 08/14/17 05:00 BP 144/66 08/14/17 05:00 Pulse Ox 95 08/14/17 05:00 Intake & Output 08/13/17 08/14/17 08/14/17 18:59 06:59 18:59 Intake Total 1440 Balance 1440 Weight 76.5 kg Intake: Oral 1440 Other: Voiding Method Toilet Toilet # Voids 2 3 - Exam GENERAL EXAM: Alert, pleasant, 71-year-old white male comfortable in no apparent distress. HEAD: Normocephalic/atraumatic. EYES: Normal reaction of pupils, equal size. Conjunctiva pink, sclera white. NOSE: Clear with pink turbinates. THROAT: No erythema or exudates. NECK: No masses, no JVD, no thyroid enlargement, no adenopathy. CHEST: No chest wall deformity. Symmetrical expansion. LUNGS: Scattered rhonchi over anterior chest, diminished lung sounds overall, prolongation of expiratory phase CVS: Regular rate and rhythm, normal S1 and S2, no gallops, no murmurs, no rubs ABDOMEN: Soft, nontender. No hepatosplenomegaly, normal bowel sounds, no guarding or rigidity. EXTREMITIES: No clubbing, no edema, no cyanosis, 2+ pulses and upper and lower extremities. MUSCULOSKELETAL: Muscle strength and tone normal. SPINE: No scoliosis or deformity SKIN: No rashes CENTRAL NERVOUS SYSTEM: Alert and oriented -3. No focal deficits, tone is normal in all 4 extremities. PSYCHIATRIC: Alert and oriented -3. Appropriate affect. Intact judgment and insight. - Labs CBC & Chem 7: 08/14/17 07:10 08/14/17 07:10 Labs: Abnormal Lab Results - Last 24 Hours (Table) 08/12/17 08/13/17 08/13/17 Range/Units 20:36 17:52 20:31 WBC (3.8-10.6) k/uL Hgb (13.0-17.5) gm/dL RDW (11.5-15.5) % Neutrophils # (1.3-7.7) k/uL Lymphocytes # (1.0-4.8) k/uL BUN (9-20) mg/dL Glucose (74-99) mg/dL POC Glucose (mg/dL) 144 H 179 H (75-99) mg/dL Hemoglobin A1c 6.3 H (4.0-6.0) % 08/14/17 08/14/17 08/14/17 Range/Units 07:10 07:10 07:25 WBC 15.4 H (3.8-10.6) k/uL Hgb 12.9 L (13.0-17.5) gm/dL RDW 16.9 H (11.5-15.5) % Neutrophils # 14.0 H (1.3-7.7) k/uL Lymphocytes # 0.7 L (1.0-4.8) k/uL BUN 26 H (9-20) mg/dL Glucose 144 H (74-99) mg/dL POC Glucose (mg/dL) 148 H (75-99) mg/dL Hemoglobin A1c (4.0-6.0) % 08/14/17 Range/Units 11:06 WBC (3.8-10.6) k/uL Hgb (13.0-17.5) gm/dL RDW (11.5-15.5) % Neutrophils # (1.3-7.7) k/uL Lymphocytes # (1.0-4.8) k/uL BUN (9-20) mg/dL Glucose (74-99) mg/dL POC Glucose (mg/dL) 126 H (75-99) mg/dL Hemoglobin A1c (4.0-6.0) % Microbiology - Last 24 Hours (Table) 08/13/17 01:55 Urine Culture - Final Urine,Voided 08/12/17 20:36 Blood Culture - Preliminary Blood No Growth after 24 hours Assessment and Plan Plan: Assessment: #1. Acute exacerbation of chronic obstructive pulmonary disease, with purulent tracheobronchitis. Chest x-ray showed a chronic infiltrate in the left upper lobe, this was compared to previous chest x-rays, and appears to be chronic in nature. However in view of patient's presenting symptoms, with fever, chills, purulent phlegm, cough, dyspnea, cannot entirely rule out pneumonia, community- acquired or aspiration pneumonia #2. Severe advanced COPD, baseline FEV1 of 26% of predicted, with chronic hypoxemic respiratory failure, is on home O2 at 2 L per nasal cannula #3. Dyspnea, chest congestion, purulent sputum production, due to the above #4. History of nicotine dependence, currently in remission, patient quit 14 years ago, but prior to that smoked for 58 years, up to 2 packs a day #5. History of coronary artery disease, with previous two-vessel coronary artery bypass grafting in September 2016 in [place] #6. Ischemic cardiomyopathy with Impaired left ventricular systolic function, and most recent echocardiogram showed left ventricular systolic function, mild to moderately impaired with an EF between 40-45% there has been any improvement in his left ventricular heart function since his bypass surgery in September of last year. #7. Suspect aspiration based on his history, and patient had previously had been told he is aspiration risk based on his barium swallow evaluation #8. Hypertension #9. Chronic sinusitis, prior frontal sinus fractures, and sinus repair, [address] Dutta #10. History of coronary artery disease, with left carotid endarterectomy Plan: Patient remains stable, improving, cultures remain negative thus far, he is awaiting his modified barium swallow this afternoon, we will switch his antibiotics to Zosyn for anaerobic coverage related to possible aspiration pneumonia. For now continue the rest of his medical treatments, will await the results of the modified barium swallow, and patient potential could be discharged later on today. I performed a history & physical examination of the patient and discussed their management with my nurse practitioner, Whitney Gaines. I reviewed the nurse practitioner's note and agree with the documented findings and plan of care. Lung sounds are diminished, with scattered rhonchi, or anterior upper lobes. The findings and the impression was discussed with the patient. I attest to the documentation by the nurse practitioner. Time with Patient: Less than 30
--- NOTE | 2017-08-14 14:52 | P.PN ---
Subjective Patient is admitted for COPD exacerbation is also being treated for possible aspiration pneumonia patient will undergo speech therapy evaluation today. Patient apparently has some silent aspiration. Patient is on Zosyn for possible aspiration pneumonia. Patient is still wheezing a bit not wearing oxygen at this time. Patient is oxygen dependent, uses 2 L of oxygen at home. Constitutional: Denied any fatigue denied any fever. Cardio vascular: denied any chest pain, palpitations Gastrointestinal denied any nausea vomiting Pulmonary: Denied any shortness of breath cough Neurologic denied any new focal deficits Objective - Vital Signs Vital signs: Vital Signs Temp 98.0 F 08/14/17 05:00 Pulse 74 08/14/17 11:45 Resp 16 08/14/17 05:00 BP 144/66 08/14/17 05:00 Pulse Ox 95 08/14/17 05:00 Intake & Output 08/13/17 08/14/17 08/14/17 18:59 06:59 18:59 Intake Total 1440 Balance 1440 Weight 76.5 kg Intake: Oral 1440 Other: Voiding Method Toilet Toilet # Voids 2 3 3 - Exam PHYSICAL EXAMINATION: GENERAL: The patient is alert and oriented x3, not in any acute distress. Well developed, well nourished. HEENT: Pupils are round and equally reacting to light. EOMI. No scleral icterus. No conjunctival pallor. Normocephalic, atraumatic. No pharyngeal erythema. No thyromegaly. CARDIOVASCULAR: S1 and S2 present. No murmurs, rubs, or gallops. PULMONARY: Diffuse rhonchi with minimal expiratory wheezing and diminished air entry into bilateral lung dunbar. ABDOMEN: Soft, nontender, nondistended, normoactive bowel sounds. No palpable organomegaly. MUSCULOSKELETAL: No joint swelling or deformity. EXTREMITIES: No cyanosis, clubbing, or pedal edema. NEUROLOGICAL: Gross neurological examination did not reveal any focal deficits. SKIN: No rashes. - Labs CBC & Chem 7: 08/14/17 07:10 08/14/17 07:10 Labs: Abnormal Lab Results - Last 24 Hours (Table) 08/12/17 08/13/17 08/13/17 Range/Units 20:36 17:52 20:31 WBC (3.8-10.6) k/uL Hgb (13.0-17.5) gm/dL RDW (11.5-15.5) % Neutrophils # (1.3-7.7) k/uL Lymphocytes # (1.0-4.8) k/uL BUN (9-20) mg/dL Glucose (74-99) mg/dL POC Glucose (mg/dL) 144 H 179 H (75-99) mg/dL Hemoglobin A1c 6.3 H (4.0-6.0) % 08/14/17 08/14/17 08/14/17 Range/Units 07:10 07:10 07:25 WBC 15.4 H (3.8-10.6) k/uL Hgb 12.9 L (13.0-17.5) gm/dL RDW 16.9 H (11.5-15.5) % Neutrophils # 14.0 H (1.3-7.7) k/uL Lymphocytes # 0.7 L (1.0-4.8) k/uL BUN 26 H (9-20) mg/dL Glucose 144 H (74-99) mg/dL POC Glucose (mg/dL) 148 H (75-99) mg/dL Hemoglobin A1c (4.0-6.0) % 08/14/17 Range/Units 11:06 WBC (3.8-10.6) k/uL Hgb (13.0-17.5) gm/dL RDW (11.5-15.5) % Neutrophils # (1.3-7.7) k/uL Lymphocytes # (1.0-4.8) k/uL BUN (9-20) mg/dL Glucose (74-99) mg/dL POC Glucose (mg/dL) 126 H (75-99) mg/dL Hemoglobin A1c (4.0-6.0) % Microbiology - Last 24 Hours (Table) 08/13/17 01:55 Urine Culture - Final Urine,Voided 08/12/17 20:36 Blood Culture - Preliminary Blood No Growth after 24 hours Assessment and Plan Plan: -Acute on chronic hypercapnic respiratory failure secondary to COPD exacerbation patient systemic strides initial treatments which will be continued -Possible aspiration pneumonia for which patient is on Zosyn which will be continued and the patient will undergo swallow evaluation today. -Coronary artery disease -Ischemic cardiomyopathy chronic systolic dysfunction without any acute exacerbation -Hypertension -Carotid vascular disease status post left carotid endarterectomy in the past
--- NOTE | 2017-08-14 15:06 | FL ---
MODIFIED SWALLOW / DEGLUTITION STUDY DATE OF EXAM: 08/14/2017 CLINICAL HISTORY: A 71-year-old male with shortness of breath, COPD, and reflux, Dysphagia. TECHNIQUE: Deglutition study is performed utilizing thin liquid barium, honey and nectar thick liqui d barium, barium thick applesauce, and barium coated cracker. Total fluoroscopy time: 1 minute 15 seconds. Total images: None. Real-time fluoroscopy support was provided to speech pathology. COMPARISON: None. FINDINGS: The oral and pharyngeal phases show satisfactory initiation and propagation with all modalities teste d. Patient is edentulous but otherwise normal mastication is seen with solid modalities tested. Ther e is transient penetration with thin liquids by cup. No other evidence of penetration or aspiration w ith any modality tested. No significant pharyngeal residue was appreciated. IMPRESSION: Transient flash penetration with thin liquids by cup. Otherwise, no aspiration or penetration. Please refer to speech therapist notes for further details if necessary.
[2017-08-14 15:14] VITALS: BP 124/64; RESP 22; TEMP 98
[2017-08-14 15:44] VITALS: PULSE 76
[2017-08-14] MEDS ORDERED: PIPERACILLIN-TAZOBACTAM 3.375 GM in DEXTROSE/WATER 1 50ML.BAG IVPB SCH (16:00)
--- NOTE | 2017-08-14 16:25 | P.DS ---
Providers Date of admission: 08/12/17 22:24 Attending physician: Luther Sheikh Consults: 08/13/17 12:38 Consult Physician Routine Consulting Provider: Daina Mendez Consult Reason/Comments: copd Do you want consulting provider notified?: Yes Primary care physician: [facility] Hospital Course: Patient was evaluated by speech therapy they suspected microaspiration after that patient underwent [place] fluoroscopic study which did not show any aspiration pulmonology. The patient and patient is being discharged on Augmentin and weaning dose of prednisone. Please refer to my dictation of progress note for further details Plan - Discharge Summary Discharge Rx Participant: No New Discharge Prescriptions: New Amoxic-Pot Clav 875-125Mg [Augmentin 875-125] 1 tab PO Q12HR 10 Days #20 tablet predniSONE 10 mg PO DIRECTED 12 Days #30 tab No Action Omeprazole [PriLOSEC] 20 mg PO AC-BID Albuterol Nebulized [Ventolin Nebulized] 2.5 mg INHALATION RT-QID PRN PRN Reason: Shortness Of Breath Albuterol Sulfate [Proventil Hfa] 2 puff INHALATION RT-QID PRN PRN Reason: Shortness Of Breath Tiotropium 18 Mcg/Puff [Spiriva] 1 puff INHALATION RT-DAILY Aspirin 81 mg PO DAILY Isosorbide Mononitrate ER [Imdur] 30 mg PO DAILY Atorvastatin [Lipitor] 80 mg PO DAILY Metoprolol Tartrate [Lopressor] 50 mg PO BID Ipratropium Nebulized [Atrovent Nebulized] 0.5 mg INHALATION RT-QID PRN PRN Reason: Shortness Of Breath Lisinopril [Zestril] 5 mg PO DAILY #30 tab Budesonide/Formoterol Fumarate [Symbicort 160-4.5 Mcg Inhaler] 2 puff INHALATION RT-BID Fluticasone Nasal [place] [Flonase Nasal [place]] 1 spray EA NOSTRIL DAILY Discharge Medication List Albuterol Nebulized [Ventolin Nebulized] 2.5 mg INHALATION RT-QID PRN 04/09/16 [ History] Albuterol Sulfate [Proventil Hfa] 2 puff INHALATION RT-QID PRN 04/09/16 [History ] Omeprazole [PriLOSEC] 20 mg PO AC-BID 04/09/16 [History] Tiotropium 18 Mcg/Puff [Spiriva] 1 puff INHALATION RT-DAILY 05/20/16 [History] Aspirin 81 mg PO DAILY 09/07/16 [Rx] Atorvastatin [Lipitor] 80 mg PO DAILY 11/22/16 [History] Isosorbide Mononitrate ER [Imdur] 30 mg PO DAILY 11/22/16 [History] Metoprolol Tartrate [Lopressor] 50 mg PO BID 11/22/16 [History] Ipratropium Nebulized [Atrovent Nebulized] 0.5 mg INHALATION RT-QID PRN [History] Lisinopril [Zestril] 5 mg PO DAILY #30 tab 12/26/16 [Rx] Budesonide/Formoterol Fumarate [Symbicort 160-4.5 Mcg Inhaler] 2 puff INHALATION RT-BID 08/12/17 [History] Fluticasone Nasal [place] [Flonase Nasal [place]] 1 spray EA NOSTRIL DAILY 08/12/17 [History] Amoxic-Pot Clav 875-125Mg [Augmentin 875-125] 1 tab PO Q12HR 10 Days #20 tablet 08/14/17 [Rx] predniSONE 10 mg PO DIRECTED 12 Days #30 tab 08/14/17 [Rx] Follow up Appointment(s)/Referral(s): Parish Lai MD [STAFF PHYSICIAN] - 1 Week [facility],Clinic [Primary Care Provider] - 3 Days Discharge Disposition: HOME SELF-CARE
== END 2017-08-14 17:15 | disposition home or self-care (01) | DRG 190 ==
LOC: EC 19:44 → 5MS5E 22:24
PROVIDERS: ADMIT Internal Medicine; ATTEND Internal Medicine
DX: J44.1 Chronic obstructive pulmonary disease with (acute) exacerbation (principal); J18.9 Pneumonia, unspecified organism; J96.22 Acute and chronic respiratory failure with hypercapnia; J96.11 Chronic respiratory failure with hypoxia; J44.0 Chronic obstructive pulmonary disease with (acute) lower respiratory infection; I11.0 Hypertensive heart disease with heart failure; I50.9 Heart failure, unspecified; I25.10 Atherosclerotic heart disease of native coronary artery without angina pectoris; K21.9 Gastro-esophageal reflux disease without esophagitis; E78.5 Hyperlipidemia, unspecified; I25.5 Ischemic cardiomyopathy; Z79.51 Long term (current) use of inhaled steroids; Z79.899 Other long term (current) drug therapy; Z99.81 Dependence on supplemental oxygen; Z87.891 Personal history of nicotine dependence; Z79.82 Long term (current) use of aspirin; I25.2 Old myocardial infarction; D63.8 Anemia in other chronic diseases classified elsewhere; I73.9 Peripheral vascular disease, unspecified; Z80.0 Family history of malignant neoplasm of digestive organs; Z82.49 Family history of ischemic heart disease and other diseases of the circulatory system; Z95.1 Presence of aortocoronary bypass graft; Z87.01 Personal history of pneumonia (recurrent)
CPT/HCPCS: 36415; 71046; 74230; 80048; 80053; 81003; 83036; 83605; 84484; 85025; 85610; 85730; 87040; 87070; 87086; 87205; 93005; 94640; 94644; 96361; 96374; 96375; 99291

== ENCOUNTER 2018-01-30 10:11 | Emergency (ER) | payer OTHER, MEDICARE ==
[2018-01-30] MEDS ORDERED: SODIUM CHLORIDE 0.9% 1,000 ML IV STA (10:35)
[2018-01-30] MEDS ORDERED: ASPIRIN 81 MG PO STA (10:35)
--- NOTE | 2018-01-30 10:40 | ED ---
General Adult HPI - General Chief complaint: Abdominal Pain Stated complaint: Abd pain Time Seen by Provider: 01/30/18 10:26 Source: patient, EMS, RN notes reviewed Mode of arrival: EMS Limitations: no limitations - History of Present Illness Initial comments: Patient's a 72-year-old male presented to the emergency room today by EMS, with chief complaint of feeling nauseous and lightheaded and right-sided abdominal pain that started after taking doxycycline this morning. Patient's at bedside stating that [facility] due to thrush. States that he does use albuterol inhalers because of COPD and occasionally has this problem. To their knowledge she's never taken doxycycline before. Patient states that he took this at 8:30 along with his metoprolol and began to feel dizzy lightheaded and had right-sided upper quadrant pain. Patient states he did take 2 nitro sublingual. He states it did not seem to help his symptoms. He states this time symptoms seem to be improved 2 hours later. He denies any pain currently. Denies any nausea. Patient denies any recent fever, chills, shortness of breath, chest pain, back pain, vomiting, numbness or tingling, headaches or visual changes, or any other complaints. - Related Data Home Medications Medication Instructions Recorded Confirmed Albuterol Nebulized [Ventolin 2.5 mg INHALATION RT-QID PRN 04/09/16 01/30/18 Nebulized] Albuterol Sulfate [Proventil Hfa] 2 puff INHALATION RT-QID PRN 04/09/16 01/30/18 Tiotropium 18 Mcg/Puff [Spiriva] 1 puff INHALATION RT-DAILY 05/20/16 01/30/18 Atorvastatin [Lipitor] 80 mg PO DAILY 11/22/16 01/30/18 Metoprolol Tartrate [Lopressor] 50 mg PO BID 11/22/16 01/30/18 Budesonide/Formoterol Fumarate 2 puff INHALATION RT-BID 08/12/17 01/30/18 [Symbicort 160-4.5 Mcg Inhaler] Fluticasone Nasal [place] [Flonase 2 spray EA NOSTRIL DAILY 08/12/17 01/30/18 Nasal [place]] Acetylcysteine [Mucomyst] 5 ml INHALATION BID 01/30/18 01/30/18 Ammonium Lactate Cream [Lac-Hydrin 1 applic TOPICAL TID 01/30/18 01/30/18 12% Cream] Betamethasone Dipropionate 1 applic TOPICAL BID 01/30/18 01/30/18 [Betamethasone Diprop Augm Gel 0.05%] Carboxymethylcellulose Sodium 1 drop BOTH EYES TID 01/30/18 01/30/18 [Refresh Tears] Doxycycline Hyclate 100 mg PO BID PRN 01/30/18 01/30/18 Ferrous Sulfate [Feosol] 325 mg PO Q48H 01/30/18 01/30/18 Furosemide [Lasix] 20 mg PO DAILY 01/30/18 01/30/18 Isosorbide Mononitrate ER [Imdur] 60 mg PO DAILY PRN 01/30/18 01/30/18 Nitroglycerin Sl Tabs [Nitrostat] 0.4 mg SUBLINGUAL DIRECTED 01/30/18 Nystatin 100,000 Unit/ml Susp 100,000 unit PO Q6H 01/30/18 01/30/18 [Mycostatin Oral Susp] Omeprazole 40 mg PO BID 01/30/18 01/30/18 Potassium Chloride ER [K-Dur 10] 10 meq PO DAILY 01/30/18 01/30/18 Sodium Chloride 0.65% Nasal [Deep 2 sprays NASAL TID 01/30/18 01/30/18 Sea (Saline)] Previous Rx's Medication Instructions Recorded Aspirin 81 mg PO DAILY 09/07/16 Lisinopril [Zestril] 5 mg PO DAILY #30 tab 12/26/16 Allergies Allergy/AdvReac Type Severity Reaction Status Date / Time Iodinated Contrast- Oral and AdvReac Itching Verified 01/30/18 10:50 IV Dye Review of Systems ROS Statement: Those systems with pertinent positive or pertinent negative responses have been documented in the HPI. ROS Other: All systems not noted in ROS Statement are negative. Past Medical History Past Medical History: Coronary Artery Disease (CAD), Heart Failure, COPD, GERD/ Reflux, Hyperlipidemia, Hypertension, Myocardial Infarction ([place]), Osteoarthritis (OA), Pneumonia, Vascular Disorder Additional Past Medical History / Comment(s): thoracic mass awaitingfurther testing, past sternal fracture, neck injury and possible vocal cords injury/ paralysis at a time of the fall that occurred approximately 14 years ago, chronic CHF, PAD, home O2. scheduled for angioplasty on left leg 07/2017 Last Myocardial Infarction Date:: 03/2016 History of Any Multi-Drug Resistant Organisms: None Reported Past Surgical History: Heart Catheterization, Orthopedic Surgery, Tonsillectomy Additional Past Surgical History / Comment(s): 09/27/16 2 vessel CABG at [place], vasectomy, left knee surgery/arthroscopy, facial surgery for a broken nose, neck surgery following a fall injury from a telephone pole and it's likely the patient had stabilization of his cervical spine, left carotid endarterectomy, peripheral vascular disease with insertion of vascular stents in lower extremities, hands surgery for a broken wrist, cholecystectomy, sinuplasty Past Anesthesia/Blood Transfusion Reactions: Previous Problems w/ Anesthesia Additional Past Anesthesia/Blood Transfusion Reaction / Comment(s): WOKE UP DURING WRIST SX, MILD CLAUSTERPHOBIA Past Psychological History: No Psychological Hx Reported Smoking Status: Former smoker Past Alcohol Use History: None Reported Past Drug Use History: None Reported - Past Family History Father Family Medical History: Cancer Additional Family Medical History / Comment(s): STOMACH CANCER Mother Additional Family Medical History / Comment(s): POLIO Brother(s) Family Medical History: Myocardial Infarction ([place]) General Exam - General Exam Comments Initial Comments: General: The patient is awake and alert, in no distress, and does not appear acutely ill. Eye: Pupils are equal, round and reactive to light, extra-ocular movements are intact. No nystagmus. There is normal conjunctiva bilaterally. No signs of icterus. Ears, nose, mouth and throat: There are moist mucous membranes and no oral lesions. Neck: The neck is supple, there is no tenderness or JVD. Cardiovascular: There is a regular rate and rhythm. No murmur, rub or gallop is appreciated. Respiratory: Lungs are clear to auscultation, respirations are non-labored, breath sounds are equal. No wheezes, stridor, rales, or rhonchi. Gastrointestinal: Admits soft on palpation. Mild tenderness right upper quadrant. No rebound, guarding or CVA tenderness. Musculoskeletal: Normal ROM, no tenderness. Strength 5/5. Sensation intact. Pulses equal bilaterally 2+. Neurological: A&O x 3. CN II-XII intact, There are no obvious motor or sensory deficits. Coordination appears grossly intact. Speech is normal. Skin: Skin is warm and dry and no rashes or lesions are noted. Psychiatric: Cooperative, appropriate mood & affect, normal judgment. Limitations: no limitations Course Vital Signs 01/30/18 01/30/18 10:18 11:13 Temperature 97.8 F Pulse Rate 67 67 Respiratory 20 18 Rate Blood Pressure 108/67 112/57 O2 Sat by Pulse 96 98 Oximetry EKG Findings - EKG Comments: EKG Findings:: EKG performed at 1121: Shows normal sinus rhythm with PVCs at 64 bpm. ID interval 172. QRS 92. QT/QTc 426/439. No acute ST changes. Compared to previous EKG on 08/12/2017. Medical Decision Making - Medical Decision Making Patient reexamined at this time shows no signs of distress is resting comfortably. Patient does admit that he began feeling lightheaded and dizzy after taking doxycycline this morning. Patient states that approximate hour half later he was feeling fine. He felt fine since been here in the emergency room. His EKG shows no acute changes. Case discussed with attending physician Dr. Cabezas. Patient's labs reviewed unremarkable. Chest x-rays negative. Patient doing well at this time would like to be discharged. Patient will be discharged home to follow-up family doctor over the next 2 days. Advised return if any symptoms increase worsen. - Lab Data Result diagrams: 01/30/18 11:10 01/30/18 11:10 Lab Results 01/30/18 01/30/18 01/30/18 Range/Units 11:10 11:10 11:10 WBC 9.3 (3.8-10.6) k/uL RBC 4.52 (4.30-5.90) m/uL Hgb 13.6 (13.0-17.5) gm/dL Hct 40.3 (39.0-53.0) % MCV 89.1 (80.0-100.0) fL MCH 30.1 (25.0-35.0) pg MCHC 33.8 (31.0-37.0) g/dL RDW 14.4 (11.5-15.5) % Plt Count 197 (150-450) k/uL Neutrophils % 64 % Lymphocytes % 11 % Monocytes % 8 % Eosinophils % 15 % Basophils % 0 % Neutrophils # 5.9 (1.3-7.7) k/uL Lymphocytes # 1.0 (1.0-4.8) k/uL Monocytes # 0.7 (0-1.0) k/uL Eosinophils # 1.4 H (0-0.7) k/uL Basophils # 0.0 (0-0.2) k/uL PT (9.0-12.0) sec INR (<1.2) APTT (22.0-30.0) sec Sodium 139 (137-145) mmol/L Potassium 4.9 (3.5-5.1) mmol/L Chloride 106 (98-107) mmol/L Carbon Dioxide 27 (22-30) mmol/L Anion Gap 6 mmol/L BUN 25 H (9-20) mg/dL Creatinine 0.95 (0.66-1.25) mg/dL Est GFR (CKD-EPI)AfAm >90 (>60 ml/min/1.73 sqM) Est GFR (CKD-EPI)NonAf 80 (>60 ml/min/1.73 sqM) Glucose 113 H (74-99) mg/dL Calcium 8.9 (8.4-10.2) mg/dL Total Bilirubin 0.5 (0.2-1.3) mg/dL AST 24 (17-59) U/L ALT 43 (21-72) U/L Alkaline Phosphatase 61 (38-126) U/L Total Creatine Kinase 39 L (55-170) U/L CK-MB (CK-2) 1.5 (0.0-2.4) ng/mL CK-MB (CK-2) Rel Index 3.8 Troponin I <0.012 (0.000-0.034) ng/mL Total Protein 5.8 L (6.3-8.2) g/dL Albumin 3.3 L (3.5-5.0) g/dL Amylase <30 L (30-110) U/L Lipase 41 (23-300) U/L //18 Range/Units 11:10 WBC (3.8-10.6) k/uL RBC (4.30-5.90) m/uL Hgb (13.0-17.5) gm/dL Hct (39.0-53.0) % MCV (80.0-100.0) fL MCH (25.0-35.0) pg MCHC (31.0-37.0) g/dL RDW (11.5-15.5) % Plt Count (150-450) k/uL Neutrophils % % Lymphocytes % % Monocytes % % Eosinophils % % Basophils % % Neutrophils # (1.3-7.7) k/uL Lymphocytes # (1.0-4.8) k/uL Monocytes # (0-1.0) k/uL Eosinophils # (0-0.7) k/uL Basophils # (0-0.2) k/uL PT 10.0 (9.0-12.0) sec INR 0.9 (<1.2) APTT 23.9 (22.0-30.0) sec Sodium (137-145) mmol/L Potassium (3.5-5.1) mmol/L Chloride (98-107) mmol/L Carbon Dioxide (22-30) mmol/L Anion Gap mmol/L BUN (9-20) mg/dL Creatinine (0.66-1.25) mg/dL Est GFR (CKD-EPI)AfAm (>60 ml/min/1.73 sqM) Est GFR (CKD-EPI)NonAf (>60 ml/min/1.73 sqM) Glucose (74-99) mg/dL Calcium (8.4-10.2) mg/dL Total Bilirubin (0.2-1.3) mg/dL AST (17-59) U/L ALT (21-72) U/L Alkaline Phosphatase (38-126) U/L Total Creatine Kinase (55-170) U/L CK-MB (CK-2) (0.0-2.4) ng/mL CK-MB (CK-2) Rel Index Troponin I (0.000-0.034) ng/mL Total Protein (6.3-8.2) g/dL Albumin (3.5-5.0) g/dL Amylase (30-110) U/L Lipase (23-300) U/L Disposition Clinical Impression: Lightheaded, Nausea Disposition: HOME SELF-CARE Condition: Good Instructions: Lightheadedness (ED) Additional Instructions: Please follow-up with family doctor in the next 2 days of symptoms have not improved. Please return to emergency room if the symptoms increase or worsen or for any other concerns. Is patient prescribed a controlled substance at d/c from ED?: No Referrals: [facility],Clinic [Primary Care Provider] - 1-2 days Time of Disposition: 12:28
[2018-01-30 11:14] VITALS: RESP 18
[2018-01-30 11:36] LABS: Basophils % (A) 0 %; Eosinophils # (A) 1.4 k/uL (0-0.7); Eosinophils % (A) 15 %; HCT 40.3 % (39.0-53.0); HGB 13.6 gm/dL (13.0-17.5); Lymphocytes % (A) 11 %; MCH 30.1 pg (25.0-35.0); MCHC 33.8 g/dL (31.0-37.0); MCV 89.1 fL (80.0-100.0); Mean Platelet Volume 7.3; Monocytes # (A) 0.7 k/uL (0-1.0); Monocytes % (A) 8 %; Neutrophils # (A) 5.9 k/uL (1.3-7.7); Neutrophils % (A) 64 %; Platelet Count 197 k/uL (150-450); RBC 4.52 m/uL (4.30-5.90); RDW 14.4 % (11.5-15.5); WBC 9.3 k/uL (3.8-10.6)
--- NOTE | 2018-01-30 11:42 | XR ---
EXAMINATION TYPE: XR chest 2V DATE OF EXAM: 01/30/2018 COMPARISON: 08/12/2017, 12/26/2016 INDICATION: Right upper quadrant pain, abdomen pain heart failure TECHNIQUE: Frontal and lateral views of the chest are obtained. FINDINGS: The heart size is normal. The pulmonary vasculature is normal. Some mild lingular infiltrate is silhouetting the left diaphragm. This has improved from the comparis ons of 2016 and 2018. Some underlying chronic changes are likely present.. IMPRESSION: 1. Lingular increased lung markings appear improved from the comparison study. Recurrent atelectasis or pneumonia could be considered. Chronic changes should also be considered.
[2018-01-30 11:44] LABS: INR 0.9 (<1.2); Partial Thromboplastin Time 23.9 sec (22.0-30.0)
[2018-01-30 11:46] LABS: ALT 43 U/L (21-72); AST 24 U/L (17-59); Albumin 3.3 g/dL (3.5-5.0); Alkaline Phosphatase 61 U/L (38-126); Amylase <30 U/L (30-110); Anion Gap 6 mmol/L; Blood Urea Nitrogen 25 mg/dL (9-20); Calcium 8.9 mg/dL (8.4-10.2); Carbon Dioxide 27 mmol/L (22-30); Chloride 106 mmol/L (98-107); Glucose 113 mg/dL (74-99); Lipase 41 U/L (23-300); Potassium 4.9 mmol/L (3.5-5.1); Sodium 139 mmol/L (137-145); Total Bilirubin 0.5 mg/dL (0.2-1.3); Total Protein 5.8 g/dL (6.3-8.2)
[2018-01-30 11:58] LABS: Creatine Kinase 39 U/L (55-170)
[2018-01-30 12:10] LABS: Creatine Kinase MB 1.5 ng/mL (0.0-2.4); Troponin I <0.012 ng/mL (0.000-0.034)
[2018-01-30 12:56] VITALS: BP 103/52; PULSE 74; TEMP 97.7
== END 2018-01-30 12:55 | disposition home or self-care (01) ==
LOC: EC 10:11
DX: R42 Dizziness and giddiness (principal); R11.0 Nausea; R10.9 Unspecified abdominal pain; I25.10 Atherosclerotic heart disease of native coronary artery without angina pectoris; I11.0 Hypertensive heart disease with heart failure; I50.9 Heart failure, unspecified; J44.9 Chronic obstructive pulmonary disease, unspecified; K21.9 Gastro-esophageal reflux disease without esophagitis; E78.5 Hyperlipidemia, unspecified; I25.2 Old myocardial infarction; I73.9 Peripheral vascular disease, unspecified; Z79.51 Long term (current) use of inhaled steroids; Z79.899 Other long term (current) drug therapy; Z91.041 Radiographic dye allergy status; Z95.1 Presence of aortocoronary bypass graft; Z87.891 Personal history of nicotine dependence
CPT/HCPCS: 36415; 71046; 80053; 82150; 82550; 82553; 83690; 84484; 85025; 85610; 85730; 96360; 96361; 99284

== ENCOUNTER 2018-08-14 13:24 | Emergency (ER) | payer OTHER, MEDICARE ==
[2018-08-14 14:34] VITALS: RESP 18; TEMP 97.9
[2018-08-14 15:17] LABS: ALT 32 U/L (21-72); AST 22 U/L (17-59); African American GFR (CKD) >90 (>60 ml/min/1.73 sqM); Albumin 3.4 g/dL (3.5-5.0); Alkaline Phosphatase 54 U/L (38-126); Anion Gap 6 mmol/L; Blood Urea Nitrogen 22 mg/dL (9-20); Calcium 8.4 mg/dL (8.4-10.2); Carbon Dioxide 26 mmol/L (22-30); Chloride 103 mmol/L (98-107); Glucose 146 mg/dL (74-99); Potassium 4.8 mmol/L (3.5-5.1); Sodium 135 mmol/L (137-145); Total Bilirubin 1.2 mg/dL (0.2-1.3); Total Protein 5.8 g/dL (6.3-8.2)
[2018-08-14 15:19] LABS: INR 0.9 (<1.2); Partial Thromboplastin Time 24.4 sec (22.0-30.0); Prothrombin Time 9.9 sec (9.0-12.0)
--- NOTE | 2018-08-14 15:57 | CT ---
EXAMINATION TYPE: CT brain rohan tanner DATE OF EXAM: 08/14/2018 COMPARISON: December 25, 2016 HISTORY: Syncope, pain Unenhanced CT of the brain was performed. The ventricles, basal cisterns and sulci overlying the cerebral convexities demonstrate mild enlargem ent. There is no evidence for intracranial hemorrhage or sulcal effacement. There is decreased attenuatio n about the periventricular white matter and deep white matter of both cerebral hemispheres, compatib le with chronic small vessel ischemia. No mass effects are seen. If symptoms persist consider MRI. Osseous calvarium is intact. IMPRESSION: 1. Age related atrophic and chronic small vessel ischemic change without acute intracranial process seen at this time. CT Cervical Spine: Unenhanced CT of the cervical spine was performed with bone and soft tissue window settings submitted . Coronal and sagittal reconstruction is obtained. There is normal alignment and prevertebral soft tissues. No evidence for acute cervical fracture . A surgical fixation posterior C1-2 level. Scattered degenerative disc disease and spondylosis. Biapica l scarring. IMPRESSION: 1. No evidence for acute fracture or subluxation of the cervical spine.
[2018-08-14 15:58] LABS: Anisocytosis Slight; HCT 36.2 % (39.0-53.0); MCH 31.1 pg (25.0-35.0); MCHC 33.2 g/dL (31.0-37.0); MCV 93.7 fL (80.0-100.0); Mean Platelet Volume 7.3; Platelet Count 131 k/uL (150-450); RBC 3.87 m/uL (4.30-5.90); RDW 17.8 % (11.5-15.5); WBC 1.6 k/uL (3.8-10.6)
--- NOTE | 2018-08-14 15:59 | XR ---
EXAMINATION TYPE: XR chest 2V DATE OF EXAM: 08/14/2018 COMPARISON: Prior chest x-ray 01/30/2018 HISTORY: Syncope TECHNIQUE: Frontal and lateral views of the chest are obtained. FINDINGS: There is no focal air space opacity, pleural effusion, or pneumothorax seen. The cardiac silhouette size is within normal limits. Patient is post median sternotomy. Prominent lung lines may be indicative of underlying COPD. Surgical clips are present in the upper abdomen. Strand-like densit ies likely reflect underlying scarring. The osseous structures are intact. IMPRESSION: No acute cardiopulmonary process.
--- NOTE | 2018-08-14 17:16 | ED ---
General Adult HPI - General Chief complaint: Syncope Stated complaint: Fall, hit head Time Seen by Provider: 08/14/18 15:20 Source: patient, family, RN notes reviewed, old records reviewed Mode of arrival: wheelchair Limitations: no limitations - History of Present Illness Initial comments: The patient waited in the waiting for approximately an hour and 52 minutes prior to being seen due to overload in the emergency room. Medical decision making; a 72-year-old male who reports he had a syncopal episode after coughing repeatedly. This occurred earlier this morning prior to him going for chemotherapy. He stood up coughed fell forward bumped his head but immediately awakened. He has thin skin on the forearms his repaired the forearms at home. The patient is recently finished chemotherapy and is starting radiation therapy for lung cancer. After finishing his chemotherapy he received IV fluids at his doctor's office. Patient reports had episodes of coughing in the past that almost causing the pass out. Otherwise alert. His was there immediately he was awake when she got him within seconds of his fall. He has mild neck discomfort. The patient's white count 1.6 hemoglobin 12 hematocrit 36 with an INR 0.9 platelets only 17,000. Potassium 4.8 with a BUN 6 creatinine 22 GFR greater than 90. Glucose 146. Chest x-ray is done AP and lateral view and reviewed by radiologist his impression is no acute cardiopulmonary process. As read by Dr. Castaneda CT the brain and cervical spine was done and reviewed by radiologist his impression is age-related atrophic and chronic small vessel ischemic changes but acute intracranial processes seen at this time. Cervical spine; normal alignment and prevertebral soft tissues. No evidence for acute cervical fracture. A surgical fixation posterior C1-C2 level. Scattered degenerative disc disease and spondylosis. Biapical scarring. Impression; no evidence for acute fracture or subluxation of the cervical spine. As read by Dr. James - Related Data Home Medications Medication Instructions Recorded Confirmed Albuterol Nebulized [Ventolin 2.5 mg INHALATION RT-QID PRN 04/09/16 01/30/18 Nebulized] Albuterol Sulfate [Proventil Hfa] 2 puff INHALATION RT-QID PRN 04/09/16 01/30/18 Tiotropium 18 Mcg/Puff [Spiriva] 1 puff INHALATION RT-DAILY 05/20/16 01/30/18 Atorvastatin [Lipitor] 80 mg PO DAILY 11/22/16 01/30/18 Metoprolol Tartrate [Lopressor] 50 mg PO BID 11/22/16 01/30/18 Budesonide/Formoterol Fumarate 2 puff INHALATION RT-BID 08/12/17 01/30/18 [Symbicort 160-4.5 Mcg Inhaler] Fluticasone Nasal [place] [Flonase 2 spray EA NOSTRIL DAILY 08/12/17 01/30/18 Nasal [place]] Acetylcysteine [Mucomyst] 5 ml INHALATION BID 01/30/18 01/30/18 Ammonium Lactate Cream [Lac-Hydrin 1 applic TOPICAL TID 01/30/18 01/30/18 12% Cream] Betamethasone Dipropionate 1 applic TOPICAL BID 01/30/18 01/30/18 [Betamethasone Diprop Augm Gel 0.05%] Carboxymethylcellulose Sodium 1 drop BOTH EYES TID 01/30/18 01/30/18 [Refresh Tears] Doxycycline Hyclate 100 mg PO BID PRN 01/30/18 01/30/18 Ferrous Sulfate [Feosol] 325 mg PO Q48H 01/30/18 01/30/18 Furosemide [Lasix] 20 mg PO DAILY 01/30/18 01/30/18 Isosorbide Mononitrate ER [Imdur] 60 mg PO DAILY PRN 01/30/18 01/30/18 Nitroglycerin Sl Tabs [Nitrostat] 0.4 mg SUBLINGUAL DIRECTED 01/30/18 01/30/18 Nystatin 100,000 Unit/ml Susp 100,000 unit PO Q6H 01/30/18 01/30/18 [Mycostatin Oral Susp] Omeprazole 40 mg PO BID 01/30/18 01/30/18 Potassium Chloride ER [K-Dur 10] 10 meq PO DAILY 01/30/18 01/30/18 Sodium Chloride 0.65% Nasal [Deep 2 sprays NASAL TID 01/30/18 01/30/18 Sea (Saline)] Previous Rx's Medication Instructions Recorded Aspirin 81 mg PO DAILY 09/07/16 Lisinopril [Zestril] 5 mg PO DAILY #30 tab 12/26/16 Allergies Allergy/AdvReac Type Severity Reaction Status Date / Time Iodinated Contrast- Oral and AdvReac Itching Verified 08/14/18 17:36 IV Dye Review of Systems ROS Statement: Those systems with pertinent positive or pertinent negative responses have been documented in the HPI. ROS Other: All systems not noted in ROS Statement are negative. Past Medical History Past Medical History: Coronary Artery Disease (CAD), Heart Failure, COPD, GERD/Reflux, Hyperlipidemia, Hypertension, Myocardial Infarction ([place]), Osteoarthritis ([place]), Pneumonia, Vascular Disorder Additional Past Medical History / Comment(s): thoracic mass awaitingfurther testing, past sternal fracture, neck injury and 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 scheduled for angioplasty on left leg 07/2017 Last Myocardial Infarction Date:: 03/2016 History of Any Multi-Drug Resistant Organisms: None Reported Past Surgical History: Heart Catheterization, Orthopedic Surgery, Tonsillectomy Additional Past Surgical History / Comment(s): 09/27/16 2 vessel CABG at [place], vasectomy, left knee surgery/arthroscopy, facial surgery for a broken nose, neck surgery following a fall injury from a telephone pole and it's likely the patient had stabilization of his cervical spine, left carotid endarterectomy, peripheral vascular disease with insertion of vascular stents in lower extremities, hands surgery for a broken wrist, cholecystectomy, sinuplasty Past Anesthesia/Blood Transfusion Reactions: Previous Problems w/ Anesthesia Additional Past Anesthesia/Blood Transfusion Reaction / Comment(s): WOKE UP DURING WRIST SX, MILD CLAUSTERPHOBIA Past Psychological History: No Psychological Hx Reported Smoking Status: Former smoker Past Alcohol Use History: None Reported Past Drug Use History: None Reported - Past Family History Father Family Medical History: Cancer Additional Family Medical History / Comment(s): STOMACH CANCER Mother Additional Family Medical History / Comment(s): POLIO Brother(s) Family Medical History: Myocardial Infarction ([place]) General Exam Limitations: no limitations Course Vital Signs 08/14/18 14:29 Temperature 97.9 F Pulse Rate 77 Respiratory 18 Rate O2 Sat by Pulse 97 Oximetry Medical Decision Making - Medical Decision Making Medical decision making; had a syncopal episode while coughing this morning after getting out of bed. Afterwards he went and had chemotherapy. He also received IV fluids after the chemotherapy. He can emergency room because he had skin tears on his arms. These were cleaned and dressed in the emergency room. The patient had labs performed while in emergency room showing a white count of 1.6 hemoglobin 12 hematocrit 3.6 potassium 4.8 with a INR 0.9 BUN 6 creatinine 22 GFR greater than 90. Glucose 146. CT of the cervical spine and brain were performed and reviewed by radiologist his impression is no evidence for acute fracture or subluxation of the cervical spine and he also reports age-related atrophic and chronic small vessel ischemic changes without acute intracranial processes seen at this time as read by Dr. James. I discussed the case with , reviewed the current labs. She recommends patient receive IV fluids which he had just prior to coming emergency room while having had his chemotherapy. His discharge blood pressure is a 174, pulse 94 pulse ox 94% room air. The patient is alert standing without difficulty. Advised to stay hydrated. Advised to change positions quickly. And a follow-up with the family doctor return emergency room as needed - Lab Data Result diagrams: 08/14/18 14:35 08/14/18 14:35 Lab Results 08/14/18 08/14/18 08/14/18 Range/Units 14:35 14:35 14:35 WBC 1.6 L (3.8-10.6) k/uL RBC 3.87 L (4.30-5.90) m/uL Hgb 12.0 L (13.0-17.5) gm/dL Hct 36.2 L (39.0-53.0) % MCV 93.7 (80.0-100.0) fL MCH 31.1 (25.0-35.0) pg MCHC 33.2 (31.0-37.0) g/dL RDW 17.8 H (11.5-15.5) % Plt Count 131 L (150-450) k/uL Neutrophils % (Manual) 90 % Band Neutrophils % 3 % Lymphocytes % (Manual) 2 % Monocytes % (Manual) 5 % Neutrophils # (Manual) 1.40 (1.3-7.7) k/uL Lymphocytes # (Manual) 0.03 L (1.0-4.8) k/uL Monocytes # (Manual) 0.08 (0-1.0) k/uL Nucleated RBCs 1 H (0-0) /100 WBC Manual Slide Review Performed Large Platelets Present Polychromasia Present Poikilocytosis (manual Present Anisocytosis Slight PT 9.9 (9.0-12.0) sec INR 0.9 (<1.2) APTT 24.4 (22.0-30.0) sec Sodium 135 L (137-145) mmol/L Potassium 4.8 (3.5-5.1) mmol/L Chloride 103 (98-107) mmol/L Carbon Dioxide 26 (22-30) mmol/L Anion Gap 6 mmol/L BUN 22 H (9-20) mg/dL Creatinine 0.74 (0.66-1.25) mg/dL Est GFR (CKD-EPI)AfAm >90 (>60 ml/min/1.73 sqM) Est GFR (CKD-EPI)NonAf >90 (>60 ml/min/1.73 sqM) Glucose 146 H (74-99) mg/dL Calcium 8.4 (8.4-10.2) mg/dL Total Bilirubin 1.2 (0.2-1.3) mg/dL AST 22 (17-59) U/L ALT 32 (21-72) U/L Alkaline Phosphatase 54 (38-126) U/L Troponin I (0.000-0.034) ng/mL Total Protein 5.8 L (6.3-8.2) g/dL Albumin 3.4 L (3.5-5.0) g/dL Urine Color Urine Appearance (Clear) Urine pH (5.0-8.0) Ur Specific [place] (1.001-1.035) Urine Protein (Negative) Urine Glucose (UA) (Negative) Urine Ketones (Negative) Urine Blood (Negative) Urine Nitrite (Negative) Urine Bilirubin (Negative) Urine Urobilinogen (<2.0) mg/dL Ur Leukocyte Esterase (Negative) Urine RBC (0-5) /hpf Urine WBC (0-5) /hpf Urine Mucus (None) /hpf 08/14/18 08/14/18 Range/Units 14:35 17:02 WBC (3.8-10.6) k/uL RBC (4.30-5.90) m/uL Hgb (13.0-17.5) gm/dL Hct (39.0-53.0) % MCV (80.0-100.0) fL MCH (25.0-35.0) pg MCHC (31.0-37.0) g/dL RDW (11.5-15.5) % Plt Count (150-450) k/uL Neutrophils % (Manual) % Band Neutrophils % % Lymphocytes % (Manual) % Monocytes % (Manual) % Neutrophils # (Manual) (1.3-7.7) k/uL Lymphocytes # (Manual) (1.0-4.8) k/uL Monocytes # (Manual) (0-1.0) k/uL Nucleated RBCs (0-0) /100 WBC Manual Slide Review Large Platelets Polychromasia Poikilocytosis (manual Anisocytosis PT (9.0-12.0) sec INR (<1.2) APTT (22.0-30.0) sec Sodium (137-145) mmol/L Potassium (3.5-5.1) mmol/L Chloride (98-107) mmol/L Carbon Dioxide (22-30) mmol/L Anion Gap mmol/L BUN (9-20) mg/dL Creatinine (0.66-1.25) mg/dL Est GFR (CKD-EPI)AfAm (>60 ml/min/1.73 sqM) Est GFR (CKD-EPI)NonAf (>60 ml/min/1.73 sqM) Glucose (74-99) mg/dL Calcium (8.4-10.2) mg/dL Total Bilirubin (0.2-1.3) mg/dL AST (17-59) U/L ALT (21-72) U/L Alkaline Phosphatase (38-126) U/L Troponin I <0.012 (0.000-0.034) ng/mL Total Protein (6.3-8.2) g/dL Albumin (3.5-5.0) g/dL Urine Color Yellow Urine Appearance Clear (Clear) Urine pH 6.0 (5.0-8.0) Ur Specific [place] 1.031 (1.001-1.035) Urine Protein 1+ H (Negative) Urine Glucose (UA) Negative (Negative) Urine Ketones Negative (Negative) Urine Blood Negative (Negative) Urine Nitrite Negative (Negative) Urine Bilirubin Negative (Negative) Urine Urobilinogen <2.0 (<2.0) mg/dL Ur Leukocyte Esterase Negative (Negative) Urine RBC 1 (0-5) /hpf Urine WBC 7 H (0-5) /hpf Urine Mucus Many H (None) /hpf Disposition Clinical Impression: Cough syncope Disposition: ADMITTED IP TO THIS HOSP Condition: Fair Is patient prescribed a controlled substance at d/c from ED?: No Referrals: [facility],Clinic [Primary Care Provider] - 1-2 days Time of Disposition: 17:47
[2018-08-14 17:19] LABS: Appearance,Urine Clear (Clear); Bilirubin,Urine Negative (Negative); Blood,Urine Negative (Negative); Color,Urine Yellow; Glucose,Urine (UA) Negative (Negative); Ketones,Urine Negative (Negative); Leukocyte Esterase,Urine Negative (Negative); Mucus,Urine Many /hpf; Nitrite,Urine Negative (Negative); Protein,Urine 1+ (Negative); RBC,Urine 1 /hpf (0-5); Specific Gravity,Urine 1.031 (1.001-1.035); Urobilinogen,Urine <2.0 mg/dL (<2.0); WBC,Urine 7 /hpf (0-5)
[2018-08-14 17:22] LABS: Band Neutrophils % 3 %; Lymphocytes # (M) 0.03 k/uL (1.0-4.8); Monocytes # (M) 0.08 k/uL (0-1.0); Neutrophils % (M) 90 %; Nucleated Red Blood Cells 1 /100 WBC (0-0); Poikilocytosis (M) Present; Polychromasia Present; Total Cells Counted 100
[2018-08-14 17:23] LABS: Large Platelets Present
[2018-08-14 17:41] VITALS: BP 118/74; PULSE 94
== END 2018-08-14 18:13 | disposition home or self-care (01) ==
LOC: EC 13:24
DX: R55 Syncope and collapse (principal); R05 Cough; C34.90 Malignant neoplasm of unspecified part of unspecified bronchus or lung; I25.10 Atherosclerotic heart disease of native coronary artery without angina pectoris; I11.0 Hypertensive heart disease with heart failure; I50.9 Heart failure, unspecified; J44.9 Chronic obstructive pulmonary disease, unspecified; K21.9 Gastro-esophageal reflux disease without esophagitis; E78.5 Hyperlipidemia, unspecified; I25.2 Old myocardial infarction; Z79.51 Long term (current) use of inhaled steroids; Z79.899 Other long term (current) drug therapy; Z91.041 Radiographic dye allergy status; Z95.5 Presence of coronary angioplasty implant and graft; Z95.1 Presence of aortocoronary bypass graft; Z87.891 Personal history of nicotine dependence
CPT/HCPCS: 36415; 70450; 71046; 72125; 80053; 81001; 84484; 85025; 85610; 85730; 93005; 99285

== ENCOUNTER 2018-11-03 07:18 | Emergency (ER) | payer OTHER ==
[2018-11-03] MEDS ORDERED: AMIODARONE 50 MG/ML 3 ML VIAL IV ONE (07:20)
[2018-11-03] MEDS ORDERED: DEXTROSE 5% IN WATER 50 ML BAG ONE (07:20)
[2018-11-03] MEDS ORDERED: EPINEPHrine 10 ML SYRINGE (0.1 MG/ML) ONE (07:20)
[2018-11-03] MEDS ORDERED: SODIUM BICARB 8.4% 50 ML SYR (1 MEQ/ML) ONE (07:20)
[2018-11-03] MEDS ORDERED: MAGNESIUM SULFATE SYG 4.06 MEQ/ML SYRINGE ONE (07:20)
[2018-11-03] MEDS ORDERED: CALCIUM CHLORIDE 100 MG/ML 10 ML SYRINGE ONE (07:20)
[2018-11-03] MEDS ORDERED: SODIUM CHLORIDE 0.9% 1,000 ML IV STA (08:13)
[2018-11-03] MEDS ORDERED: EPINEPHrine 4 MG in DEXTROSE 5% IN WATER 250 ML IV ONE ×2 (08:14)
--- NOTE | 2018-11-03 09:26 | ED ---
CPR HPI - General Chief Complaint: Cardiac Arrest/CPR Stated Complaint: Cardiac Arrest Time Seen by Provider: 11/03/18 07:20 Source: EMS Mode of arrival: EMS Limitations: altered mental status, physical limitation - History of Present Illness Initial Comments: The patient is a 73-year-old male who presents to the emergency room as a witnessed arrest at home. does present to the emergency room and provides the history. She states that the patient had a hard time sleeping last night. She did awake this morning to a gurgling sound. She noted that the patient became unresponsive. The patient's son was home and started CPR on the patient. EMS arrived after 15 minutes. They did find the patient to be in a V. fib arrest. They provided him with 2 defibrillations, 7 epinephrines and an amp of bicarb. The patient does arrive pulseless. EMS had performed CPR for approximately one hour and 10 minutes. The patient does have a history of lung cancer on chemo and radiation. He also has a history of coronary artery disease with CABG 3 years ago. The remainder of the HPI is limited because the patient's unresponsive state - Related Data Home Medications Medication Instructions Recorded Confirmed Albuterol Nebulized [Ventolin 2.5 mg INHALATION RT-QID PRN 04/09/16 08/14/18 Nebulized] Albuterol Sulfate [Proventil Hfa] 1 puff INHALATION RT-QID PRN 04/09/16 08/14/18 Tiotropium 18 Mcg/Puff [Spiriva] 2 cap INHALATION RT-DAILY 05/20/16 08/14/18 Atorvastatin [Lipitor] 80 mg PO HS 11/22/16 08/14/18 Budesonide/Formoterol Fumarate 2 puff INHALATION RT-BID 08/12/17 08/14/18 [Symbicort 160-4.5 Mcg Inhaler] Fluticasone Nasal Rector [Flonase 2 spray EA NOSTRIL DAILY 08/12/17 08/14/18 Nasal Rector] Ammonium Lactate Cream [Lac-Hydrin 1 applic TOPICAL TID PRN 01/30/18 08/14/18 12% Cream] Betamethasone Dipropionate 1 applic TOPICAL BID PRN 01/30/18 08/14/18 [Betamethasone Diprop Augm Gel 0.05%] Ferrous Sulfate [Feosol] 325 mg PO DAILY 01/30/18 08/14/18 Isosorbide Mononitrate ER [Imdur] 60 mg PO DAILY 01/30/18 08/14/18 Nitroglycerin Sl Tabs [Nitrostat] 0.4 mg SL Q5M PRN 01/30/18 08/14/18 Omeprazole 40 mg PO BID 01/30/18 08/14/18 Potassium Chloride ER [K-Dur 10] 10 meq PO DAILY 01/30/18 08/14/18 Aspirin EC [Ecotrin Low Dose] 81 mg PO DAILY 08/14/18 08/14/18 Lactose-Reduced Food [Ensure 4 oz PO BID 08/14/18 08/14/18 Original] Metoprolol Tartrate [Lopressor] 100 mg PO BID 08/14/18 08/14/18 predniSONE 5 mg PO DAILY 08/14/18 08/14/18 rOPINIRole HCL [Requip] 0.5 mg PO HS 08/14/18 08/14/18 Allergies Allergy/AdvReac Type Severity Reaction Status Date / Time Iodinated Contrast Media AdvReac Itching Verified 08/14/18 17:36 [Iodinated Contrast- Oral and IV Dye] Review of Systems ROS Statement: Those systems with pertinent positive or pertinent negative responses have been documented in the HPI. ROS Other: All systems not noted in ROS Statement are negative. Limitations: ROS unobtainable due to patients medical condition Past Medical History Past Medical History: Coronary Artery Disease (CAD), Heart Failure, COPD, GERD/Reflux, Hyperlipidemia, Hypertension, Myocardial Infarction ([place]), Osteoarthritis (OA), Pneumonia, Vascular Disorder Additional Past Medical History / Comment(s): thoracic mass awaitingfurther testing, past sternal fracture, neck injury and 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 scheduled for angioplasty on left leg 07/2017 Last Myocardial Infarction Date:: 03/2016 History of Any Multi-Drug Resistant Organisms: None Reported Past Surgical History: Heart Catheterization, Orthopedic Surgery, Tonsillectomy Additional Past Surgical History / Comment(s): 09/27/16 2 vessel CABG at [facility], vasectomy, left knee surgery/arthroscopy, facial surgery for a broken nose, neck surgery following a fall injury from a telephone pole and it's likely the patient had stabilization of his cervical spine, left carotid endarterectom y, peripheral vascular disease with insertion of vascular stents in lower extremities, hands surgery for a broken wrist, cholecystectomy, sinuplasty Past Anesthesia/Blood Transfusion Reactions: Previous Problems w/ Anesthesia Additional Past Anesthesia/Blood Transfusion Reaction / Comment(s): WOKE UP DURING WRIST SX, MILD CLAUSTERPHOBIA Past Psychological History: No Psychological Hx Reported Smoking Status: Former smoker Past Alcohol Use History: None Reported Past Drug Use History: None Reported - Past Family History Father Family Medical History: Cancer Additional Family Medical History / Comment(s): STOMACH CANCER Mother Additional Family Medical History / Comment(s): POLIO Brother(s) Family Medical History: Myocardial Infarction ([place]) General Exam Limitations: altered mental status, physical limitation General appearance: in distress, other (unresponsive) Head exam: Present: atraumatic Eye exam: Present: other (fixed and dilated at 6 mm) ENT exam: Present: mucous membranes dry (ET tube in the oropharynx, 23 cm at the lips), TM's normal bilaterally, other (ET tube in the oropharynx, 23 cm at the lip) Neck exam: Present: normal inspection Respiratory exam: Present: other (no spontaneous respirations) Cardiovascular Exam: Present: other (no palpable pulses. No auscultated heart sounds) GI/Abdominal exam: Present: distended. Absent: pulsatile mass Extremities exam: Present: other (no response to painful stimuli) Back exam: Present: normal inspection Neurological exam: Present: other (unresponsive. No spontaneous respirations. ) Skin exam: Present: pallor, mottled Medical Decision Making - Medical Decision Making Upon arrival the patient is placed in trauma bay 1. He arrives intubated, apneic and pulseless. We do continue ACLS protocol. Peripheral IV had been established by EMS. The patient was provided with multiple rounds of epinephrine. He is also provided with a dose of bicarb, calcium and magnesium. The patient does alternate from PEA to V. fib to torsades to V. tach. Family does arrive and I did discuss their wishes. They wish to have all life supporting measures performed at this time. I did continue ACLS protocol for an hour. The patient received multiple defibrillations. We did regain pulses several times and during these times I was able to obtain two EKGs. I did call the interventional cardiology as they are familiar with the patient. Dr. Freedman does present to the ED and assist in managing the patient. He does talk to family. They do request that if the patient does code again that we DO NOT RESUSCITATE him. We did obtain pulses several times, however the patient would arrest again. After the decision is made to make the patient a DNR, the patient coded again and we did not resume CPR. The patient did at 8:17 AM. At this time the patient had received over 120 minutes of CPR. I called and discussed the case with the [place] [facility] as well as the medical education manager. Dr. Shepard did agree to sign the certificate. The patient was then released to the home - EKG Data EKG Comments: EKG at 737 demonstrates a sinus rhythm with sinus arrhythmia and first-degree AV block. There is acute ST elevation in leads 2 and 3. There is reciprocal depressions in leads 1 and aVL and V4 through V6. EKG at [address] depression in leads 1, 2, 3, aVL, aVF and V4 through V6. Critical Care Time Total Critical Care Time: 35 (mins) Disposition Clinical Impression: Cardiac arrest Disposition: Time of Disposition: 08:20 Preliminary Cause of : Cardiac arrest
== END 2018-11-03 19:53 | disposition expired ==
LOC: EC 07:18
DX: I46.9 Cardiac arrest, cause unspecified (principal); I25.10 Atherosclerotic heart disease of native coronary artery without angina pectoris; I11.0 Hypertensive heart disease with heart failure; I50.9 Heart failure, unspecified; I25.2 Old myocardial infarction; I73.9 Peripheral vascular disease, unspecified; J44.9 Chronic obstructive pulmonary disease, unspecified; K21.9 Gastro-esophageal reflux disease without esophagitis; E78.5 Hyperlipidemia, unspecified; M19.90 Unspecified osteoarthritis, unspecified site; Z66 Do not resuscitate; Z79.82 Long term (current) use of aspirin; Z79.899 Other long term (current) drug therapy; Z79.51 Long term (current) use of inhaled steroids; Z91.041 Radiographic dye allergy status; Z85.118 Personal history of other malignant neoplasm of bronchus and lung; Z99.81 Dependence on supplemental oxygen; Z95.5 Presence of coronary angioplasty implant and graft; Z95.1 Presence of aortocoronary bypass graft; Z95.820 Peripheral vascular angioplasty status with implants and grafts; Z92.21 Personal history of antineoplastic chemotherapy; Z92.3 Personal history of irradiation; Z82.49 Family history of ischemic heart disease and other diseases of the circulatory system; Z87.891 Personal history of nicotine dependence
CPT/HCPCS: 99291; 93005; J0282; J3475; J0171; 94002